=== PATIENT | male | born 1950 | race Caucasian/White ===

== ENCOUNTER → 2022-03-14 14:17 | Outpatient (BNVA) | payer OTHER, SELFPAY | PROVIDERS: PCP General Practice; Referring Provider General Practice; Visit Provider Nurse Practitioner Family | DX: Z13.89 Encounter for screening for other disorder (principal) ==

== ENCOUNTER 2023-08-07 09:37 | Outpatient (REF) | payer MEDICARE, SELFPAY ==
--- NOTE | ~2023-08-07 | CT_ITS ---
EXAMINATION: CT CHEST WITHOUT CONTRAST CLINICAL INFORMATION: Chest pain on exertion. COMPARISON: None available. TECHNIQUE: Multidetector volumetric CT imaging of the chest was done. Axial MIP volume rendering provided. Sagittal and coronal reformatted images were obtained. This CT examination was performed using dose optimization techniques as appropriate, variously including the following: *Automated exposure control *Adjustment of mA and/or kV according to patient size (this includes techniques or standardized protocols for targeted exams where dose is matched to indication/reason for exam; i.e. extremities or head) *Use of iterative reconstruction technique DLP: 579 mGy-cm FINDINGS: LUNGS: Mild subpleural reticular changes at the lung bases. Mild central bronchial wall thickening. No focal consolidation. No suspicious pulmonary nodule. Central airways are patent. MEDIASTINUM: No bulky axillary, hilar or mediastinal lymphadenopathy. Great vessels are normal. Heart is enlarged. No pericardial effusion. CORONARY ARTERY CALCIFICATION: Severe. PLEURA: There is no pleural effusion. No pleural mass or thickening. CHEST WALL: Gynecomastia. UPPER ABDOMEN: Bilateral adrenal adenomas. Cholelithiasis. OSSEOUS STRUCTURES: Prior median sternotomy. CT/CT chest wo IV con IMPRESSION: Possible early interstitial lung disease. Bilateral adrenal adenomas. Cholelithiasis.
== END 2023-08-07 09:38 | disposition home or self-care (01) ==
LOC: HO.CT 09:37
PROVIDERS: PCP General Practice; Visit Provider General Practice
DX: R07.9 Chest pain, unspecified (principal); R06.09 Other forms of dyspnea
CPT/HCPCS: 71250

== ENCOUNTER 2023-08-21 14:17 | Outpatient (AMB) | payer MEDICARE, SELFPAY ==
--- NOTE | 2023-08-21 14:45 | MHC.OFFVIS ---
Intake Vital Signs 08/21/23 14:47 Height 6 ft 3 in Weight 318 lb BMI 39.7 BP 130/78 Blood Pressure Location Lt brachial Position Sitting Pulse 62 Pulse Source Pulse Oximeter Pulse Oximetry (%) 96 Oxygen Delivery Method Room Air Intake Visit Reasons: HACKETT Intake Note: pt is here as a new patient for shortness of breath with stairs, he must stop mid way, if he exerts his lungs they burn. pt had Covid December 2022, in hospital for 4 days in [place]. Machine Quilt Stuffer Required: No Allergies No Known Allergies Allergy (Verified 08/21/23 15:37) Medication List - Last Reconciled 08/21/23 by Maria Elena Del Rio MD albuterol sulfate 90 mcg/actuation 2 puffs PO Q4-6H PRN aspirin 81 mg PO DAILY atorvastatin 80 mg PO DAILY carvedilol 12.5 mg PO BID chlorthalidone 25 mg PO DAILY cholecalciferol (vitamin D3) (Vitamin D3) 50 mcg PO DAILY clopidogrel 75 mg PO DAILY coQ10 (ubiquinol) 100 mg PO BID cyanocobalamin (vitamin B-12) (Vitamin B-12) 500 mcg PO DAILY furosemide 40 mg PO DAILY gabapentin 400 mg PO TID lisinopril 20 mg PO DAILY loratadine (Claritin) 10 mg PO DAILY metformin 500 mg PO BID montelukast 10 mg PO QPM multivitamin 1 tab PO DAILY nitroglycerin 0.4 mg sublingual DIRECTED PRN pyridoxine (vitamin B6) (Vitamin B-6) 100 mg PO DAILY zinc acetate 50 mg PO DAILY Do you need a note to return to daycare/school/sports/work: No HPI HACKETT HPI Details 72 years old very pleasant gentleman, a retired flatbed driver, is referred for pulmonary evaluation, with his chief complaint of dyspnea on exertion. This year in December when he was in [place], he suffered from COVID-19 infection. He was treated in the hospital for 4 days, and then discharged. He did not have to use oxygen, Since discharge he has gradually improved, but with residual dyspnea on exertion. He also feels that his memory is somewhat impaired, but he is able to function fine. He gets short of breath on walking about 100 ft and has to stop and slow down. Also when he climbs 1 flight of stairs in the middle of the stairs he starts feeling short of breath. Just by resting the shortness of breath resolves, he does not have any cough or wheezing. He does use albuterol inhaler sometime when he is short of breath but it does not make a big difference. In general he feels somewhat D conditioned. In the past 2, in childhood he did have mild bronchial asthma but then outgrew the symptoms. When he was in college he did smoke a few cigarettes daily for a few years but quit successfully. He had cardiac bypass in 2007 and since then remains on carvedilol, lisinopril,. chlorthalidone, clopidogrel and furosemide . He is not aware of the diagnosis of congestive heart failure, in does not know if he had an echocardiogram recently. He has been using montelukast 10 mg daily in the evening and does not know what is that for . [facility] Medical History (Updated 08/21/23 @ 17:02 by Maria Elena Del Roi MD) Interstitial lung disease Shortness of breath on exertion Post covid-19 condition, unspecified Depression Hx of spinal stenosis Personal history of COVID-19 Skin cancer Arthritis Type 2 diabetes mellitus Pulmonary embolism Seasonal allergies Sleep apnea CAD (coronary artery disease) Surgical History Hx of cardiac catheterization Hx of heart artery stent H/O colonoscopy Hx of heart bypass surgery History of back surgery Hx of tonsillectomy Social History Household Members: Family and Children Are you a primary childcare center administrator to a significant other at home: No Do you presently have visiting nurse or other home services: No Alcohol intake: former Patient Tobacco Use Status: Former Tobacco user Quit Date: Tobacco use type: Cigarette Substance Use Type: Marijuana Review of Systems Const All systems reviewed & are unremarkable except as noted in HPI and below Eyes Reports no additional complaints ENT Reports nasal congestion (MILD INTERMITTENT) Card Reports leg edema and Reports dyspnea on exertion Resp Reports as per HPI and Reports dyspnea on exertion GI Reports no additional complaints Reports no additional complaints Musc Reports other (nonspecific muscular weakness) Skin/Breast Reports system reviewed and no additional complaints, except as documented Neuro Reports memory loss (Mild) Psych Denies anxiety, Denies depression and Reports memory loss (Mild) Endo Reports no additional complaints Jose Daniel/Lymph Reports no additional complaints Physical Exam Vital Signs: Last Vital Signs Pulse 62 08/21/23 14:47 BP 130/78 08/21/23 14:47 Pulse Ox 96 08/21/23 14:47 Oxygen Delivery Method Room Air 08/21/23 14:47 BMI result Body Mass Index 39.7 Const General: comfortable, no acute distress, alert and awake Orientation/consciousness: patient oriented x3 HEENT Head: Yes normal to inspection General nose exam: No nasal polyps present and No nasal discharge present Face and sinus: Yes sinuses nontender Mouth: oropharynx normal Throat: Yes posterior oropharynx normal Eyes General: appearance normal, both eyes and all related structures Neck Neck: Yes normal visual inspection, Yes no lymphadenopathy, Yes trachea midline and Yes no JVD Thyroid: Thyroid normal Chest Chest palpation & inspection: abnormal inspection of the chest (Midline scar from previous CABG surgery), normal palpation of entire chest wall and no tenderness Resp Other: Percussion note is resonant, breath sounds are equal on both sides. No crepitations or wheezes are heard. Cardio Palpation: normal PMI Rate: regular rate Rhythm: regular rhythm Heart sounds: no gallops and no murmurs GI Palpation (GI): Soft to palpation, nontender, No hepatosplenomegaly present and no masses Auscultation: normal bowel sounds Back/Spine/Pelvis Thoracic/Lumbar Spine: thoracic and lumbar spine normal to inspection and thoraco-lumbar ROM limited Skin General skin exam: no rashes or lesions noted Neuro General: patient oriented x3 and no focal motor deficits Cranial nerves: Yes CN's II-XII intact bilaterally Extrem General: Yes normal to inspection, Yes no calf tenderness and Yes venous stasis dermatitis (Mild chronic stasis dermatitis of both legs) Psych Appearance: grossly normal and well kempt Speech and movement: Normal speech and movement present Results Reviewed Results Reviewed: CT scan of the chest 08/07/2023 MILD SUB PLEURAL RETICULAR CHANGES AT THE LUNG BASES SUGGESTING POSSIBLE MINIMAL INTERSTITIAL LUNG DISEASE, AND MILD CENTRAL BRONCHIAL WALL THICKENING. NO OTHER SIGNIFICANT ABNORMALITIES.. * I MADE HIM WALK IN THE HALLWAY FOR ABOUT 4 MINUTES AT A REGULAR PACE, HE DID COMPLAIN OF GETTING SHORT OF BREATH ABOUT HALF OF THE WAY, BUT WAS ABLE TO CONTINUE WALKING. O2 SAT AT REST 96%, AFTER THE WALK 93% Assessment & Plan Assessment & Plan (1) Post covid-19 condition, unspecified: Comment: PATIENT GIVES HISTORY OF BEING TREATED FOR COVID-19 IN DECEMBER 2022. HE DID NOT HAVE PNEUMONIA. POST DISCHARGE, HE FELT D CONDITION AND COMPLAINED OF DYSPNEA ON EXERTION . IT HAS SLOWLY AND GRADUALLY IMPROVED, BUT STILL FEELS SOMEWHAT D CONDITIONED. HE ALSO DESCRIBES MINIMAL DEGREE OF MEMORY IMPAIRMENT, ESPECIALLY NOTICED BY THE FAMILY MEMBERS, BUT HE SEEMS TO BE FUNCTIONING WELL. HE DID PUT ON ABOUT 20 LB OF WEIGHT AFTER HE SUFFERED FROM ACUTE COVID-19 INFECTION. IT SEEMS THAT HE CONTINUES TO BE DECONDITIONED , AND HAS A LONG HAUL POST COVID SYNDROME, Code(s): U09.9 - Post COVID-19 condition, unspecified (2) Shortness of breath on exertion: Comment: DYSPNEA ON EXERTION, MAY BE DUE TO DECONDITIONING. AND MAY BE DUE TO VERY MILD INTERSTITIAL LUNG DISEASE. HE IS STARTED ON INCENTIVE SPIROMETRY, FOR DEEP BREATHING EXERCISES. ALSO ADVISED TO DO GENTLE EXERCISES FOR THE BODY . PULMONARY FUNCTION TEST IS TO BE OBTAINED TO CHECK FOR ANY OBSTRUCTIVE OR INTERSTITIAL LUNG DISEASE. Code(s): R06.02 - Shortness of breath (3) Interstitial lung disease: Comment: HE MAY HAVE VERY MILD EARLY INTERSTITIAL LUNG DISEASE A RESIDUAL FROM THE COVID 19 INFECTION. THIS WILL BE CHECKED WITH PULMONARY FUNCTION TEST. Code(s): J84.9 - Interstitial pulmonary disease, unspecified Orders: Orders PFT pulmonary function test Today J84.9 - Interstitial pulmonary disease, unspecified, R06.02 - Shortness of breath, U09.9 - Post COVID-19 condition, unspecified Coding Level of Care Code New Pt Level 4 (54128) Diagnoses Post covid-19 condition, unspecified U09.9 Shortness of breath on exertion R06.02 Interstitial lung disease J84.9
[2023-08-21 14:47] VITALS: BP 130/78; PULSE 62; O2SAT 96; BMI 39.7
== END 2023-08-21 15:37 | disposition home or self-care (01) ==
PROVIDERS: PCP General Practice; Referring Provider General Practice; Visit Provider Internal Medicine
DX: U09.9 Post COVID-19 condition, unspecified (principal); R06.02 Shortness of breath; J84.9 Interstitial pulmonary disease, unspecified
CPT/HCPCS: 99204

== ENCOUNTER → 2023-08-21 14:17 | Outpatient (BNVA) | payer MEDICARE, SELFPAY | PROVIDERS: PCP General Practice; Visit Provider Internal Medicine ==

== ENCOUNTER 2023-09-03 10:10 | Outpatient (REF) | payer MEDICARE, SELFPAY ==
[2023-09-03 11:42] LABS: Syphilis Screen Nonreactive (Nonreactive)
[2023-09-03 11:46] LABS: Vitamin B12 618 pg/mL (200-900)
[2023-09-04 21:14] LABS: Lyme Abs Screen <0.90 index
== END 2023-09-03 10:11 | disposition home or self-care (01) ==
LOC: HO.LAB 10:10
PROVIDERS: PCP General Practice; Visit Provider Psychiatry & Neurology Neurology
DX: G93.40 Encephalopathy, unspecified (principal)
CPT/HCPCS: 36415; 82607; 86617; 86618; 86780

== ENCOUNTER 2023-09-26 13:46 | Outpatient (AMB) | payer MEDICARE, SELFPAY ==
--- NOTE | 2023-09-26 14:02 | A.OFFVIS_ITS ---
Intake Vital Signs 09/26/23 14:04 Height 6 ft 3 in Weight 318 lb BMI 39.7 BP 130/78 Blood Pressure Location Lt brachial Position Sitting Pulse 68 Pulse Source Pulse Oximeter Pulse Oximetry (%) 95 Oxygen Delivery Method Room Air Intake Visit Reasons: HACKETT Intake Note: pt is here for f/u of ct scan and has pft scheduled for pft on Sunday. Still has shortness of breath with exertion,some coughing and wheezing mostly in am when waking up. Maintenance Shop Manager Required: No Allergies No Known Allergies Allergy (Verified 09/26/23 14:32) Medication List - Last Reconciled 09/26/23 by Maria Elena Del Rio MD albuterol sulfate 90 mcg/actuation 2 puffs PO Q4-6H PRN aspirin 81 mg PO DAILY atorvastatin 80 mg PO DAILY carvedilol 12.5 mg PO BID chlorthalidone 25 mg PO DAILY cholecalciferol (vitamin D3) (Vitamin D3) 50 mcg PO DAILY clopidogrel 75 mg PO DAILY coQ10 (ubiquinol) 100 mg PO BID cyanocobalamin (vitamin B-12) (Vitamin B-12) 500 mcg PO DAILY furosemide 40 mg PO DAILY gabapentin 400 mg PO TID lisinopril 20 mg PO DAILY loratadine (Claritin) 10 mg PO DAILY metformin 500 mg PO BID montelukast 10 mg PO QPM multivitamin 1 tab PO DAILY nitroglycerin 0.4 mg sublingual DIRECTED PRN pyridoxine (vitamin B6) (Vitamin B-6) 100 mg PO DAILY zinc acetate 50 mg PO DAILY Do you need a note to return to daycare/school/sports/work: No HPI HACKETT HPI Details THIS 72 YEARS OLD GENTLEMAN GROSSLY OBESE, DOES HAVE OBSTRUCTIVE SLEEP APNEA WHICH IS BEING TREATED WITH CPAP AND HE USES IT VERY REGULARLY EVERY NIGHT. HE HAS MILD SHORTNESS OF BREATH ON WALKING AROUND WITH MILD INTERMITTENT COUGH. THERE WAS A QUESTION OF MILD INTERSTITIAL LUNG DISEASE. CT SCAN OF THE CHEST HAS BEEN DONE WHICH DOES SHOW EARLY/ MINIMAL ILD PULMONARY FUNCTION TEST IS STILL AWAITED. HE DOES NOT NEED TO USE ANY . LONG-ACTING BRONCHODILATORS USES ALBUTEROL 2 PUFFS ONLY ONCE IN A WHILE IF HE FEELS CONGESTED. [facility] Medical History (Updated 09/26/23 @ 16:40 by Maria Elena Del Rio MD) DIVYA (obstructive sleep apnea) Obesity (BMI 30-39.9) Interstitial lung disease Shortness of breath on exertion Post covid-19 condition, unspecified Depression Hx of spinal stenosis Personal history of COVID-19 Skin cancer Arthritis Type 2 diabetes mellitus Pulmonary embolism Seasonal allergies Sleep apnea CAD (coronary artery disease) Surgical History Hx of cardiac catheterization Hx of heart artery stent H/O colonoscopy Hx of heart bypass surgery History of back surgery Hx of tonsillectomy Social History Household Members: Family and Children Are you a primary transitional care liaison to a significant other at home: No Do you presently have visiting nurse or other home services: No Alcohol intake: former Patient Tobacco Use Status: Former Tobacco user Quit Date: Tobacco use type: Cigarette Substance Use Type: Marijuana Review of Systems Const All systems reviewed & are unremarkable except as noted in HPI and below Eyes Reports no additional complaints ENT Reports nasal congestion (MILD INTERMITTENT) Card Reports leg edema and Reports dyspnea on exertion Resp Reports as per HPI and Reports dyspnea on exertion GI Reports no additional complaints Reports no additional complaints Musc Reports other (nonspecific muscular weakness) Skin/Breast Reports system reviewed and no additional complaints, except as documented Neuro Reports memory loss (Mild) Psych Denies anxiety, Denies depression and Reports memory loss (Mild) Endo Reports no additional complaints Jose Daniel/Lymph Reports no additional complaints Physical Exam Vital Signs: Last Vital Signs Pulse 68 09/26/23 14:04 BP 130/78 09/26/23 14:04 Pulse Ox 95 09/26/23 14:04 Oxygen Delivery Method Room Air 09/26/23 14:04 BMI result Body Mass Index 39.7 Const General: comfortable, no acute distress, alert and awake Orientation/consciousness: patient oriented x3 HEENT Head: Yes normal to inspection General nose exam: No nasal polyps present and No nasal discharge present Face and sinus: Yes sinuses nontender Mouth: oropharynx normal Throat: Yes posterior oropharynx normal Eyes General: appearance normal, both eyes and all related structures Neck Neck: Yes normal visual inspection, Yes no lymphadenopathy, Yes trachea midline and Yes no JVD Thyroid: Thyroid normal Chest Chest palpation & inspection: abnormal inspection of the chest (Midline scar from previous CABG surgery), normal palpation of entire chest wall and no tenderness Resp Other: Percussion note is resonant, breath sounds are equal on both sides. No crepitations or wheezes are heard. Cardio Palpation: normal PMI Rate: regular rate Rhythm: regular rhythm Heart sounds: no gallops and no murmurs GI Palpation (GI): Soft to palpation, nontender, No hepatosplenomegaly present and no masses Auscultation: normal bowel sounds Back/Spine/Pelvis Thoracic/Lumbar Spine: thoracic and lumbar spine normal to inspection and thoraco-lumbar ROM limited Skin General skin exam: no rashes or lesions noted Neuro General: patient oriented x3 and no focal motor deficits Cranial nerves: Yes CN's II-XII intact bilaterally Extrem General: Yes normal to inspection, Yes no calf tenderness and Yes venous stasis dermatitis (Mild chronic stasis dermatitis of both legs) Psych Appearance: grossly normal and well kempt Speech and movement: Normal speech and movement present Results Reviewed Results Reviewed: CT SCAN OF THE CHEST ON 08/07/2023: POSSIBLE EARLY INTERSTITIAL LUNG DISEASE, OTHERWISE LUNGS ARE CLEAR Assessment & Plan Assessment & Plan (1) Shortness of breath on exertion: Comment: DYSPNEA ON EXERTION, MAY BE DUE TO DECONDITIONING. HE HAS VERY MILD / EARLY INTERSTITIAL LUNG DISEASE. HE IS IS INSTRUCTED TO KEEP ON DOING DEEP BREATHING EXERCISES WITH INCENTIVE SPIROMETRY. ALSO ADVISED TO DO GENTLE EXERCISES FOR THE BODY . PULMONARY FUNCTION TEST IS IS SCHEDULED FOR NEXT WEEK . Code(s): R06.02 - Shortness of breath (2) Interstitial lung disease: Comment: PER CT SCAN HE HAS VERY MILD/EARLY INTERSTITIAL LUNG DISEASE IN THE BASILAR AREAS . DOES NOT NEED ANY ACTIVE TREATMENT FOR THIS. Code(s): J84.9 - Interstitial pulmonary disease, unspecified (3) Obesity (BMI 30-39.9): Comment: HE IS MODERATELY OBESE, TRYING TO DECREASE HIS CALORIES INTAKE. NOT ABLE TO DO MUCH EXERCISE. Code(s): E66.9 - Obesity, unspecified (4) DIVYA (obstructive sleep apnea): Comment: PATIENT HAS LONG-STANDING HISTORY OF OBSTRUCTIVE SLEEP APNEA AND USES CPAP REGULARLY. INFECT WITHOUT THE CPAP HE CANNOT SLEEP GOOD ANYWAY. Code(s): G47.33 - Obstructive sleep apnea (adult) (pediatric) Coding Level of Care Code Est Pt Level 3 (14228) Diagnoses Shortness of breath on exertion R06.02 Interstitial lung disease J84.9 Obesity (BMI 30-39.9) E66.9 DIVYA (obstructive sleep apnea) G47.33
[2023-09-26 14:04] VITALS: BP 130/78; PULSE 68; O2SAT 95; BMI 39.7
== END 2023-09-26 14:32 | disposition home or self-care (01) ==
PROVIDERS: PCP General Practice; Visit Provider Internal Medicine
DX: R06.02 Shortness of breath (principal); J84.9 Interstitial pulmonary disease, unspecified; E66.9 Obesity, unspecified; G47.33 Obstructive sleep apnea (adult) (pediatric)
CPT/HCPCS: 99213

== ENCOUNTER → 2023-09-26 13:46 | Outpatient (BNVA) | payer MEDICARE, SELFPAY | PROVIDERS: PCP General Practice; Visit Provider Internal Medicine | DX: R06.02 Shortness of breath (principal); J84.9 Interstitial pulmonary disease, unspecified; G47.33 Obstructive sleep apnea (adult) (pediatric); E66.9 Obesity, unspecified; Z68.39 Body mass index [BMI] 39.0-39.9, adult | CPT/HCPCS: 99212 ==

== ENCOUNTER 2023-09-28 14:39 | Outpatient (REF) | payer MEDICARE, SELFPAY ==
--- NOTE | 2023-09-28 15:21 | PFT_ITS ---
Forced vital capacity 76%, FEV1 56%, FEV1 over FVC ratio is 54. FEF 25-75 of 28% and MVV 60%. Post bronchodilator therapy, no significant changes noted. Total lung capacity 73%, and residual volume 77%. Diffusion capacity 71%. CONCLUSION: 1. Mild restrictive pulmonary disorder. 2. Moderately severe obstructive airway disorder without any response to bronchodilator therapy. 3. Clinical correlation is recommended. MD REBA Bai/YOVANNY / [phone]
== END 2023-09-28 14:40 | disposition home or self-care (01) ==
LOC: HO.RESP 14:39
PROVIDERS: PCP General Practice; Visit Provider Internal Medicine
DX: U09.9 Post COVID-19 condition, unspecified (principal); R06.02 Shortness of breath; J84.9 Interstitial pulmonary disease, unspecified
CPT/HCPCS: 94010; 94727; 94729

== ENCOUNTER → 2023-09-28 15:21 | Outpatient (BNV) | payer MEDICARE, SELFPAY | PROVIDERS: PCP General Practice; Visit Provider Internal Medicine | DX: J84.9 Interstitial pulmonary disease, unspecified (principal); U09.9 Post COVID-19 condition, unspecified | CPT/HCPCS: 94060; 94727; 94729 ==

== ENCOUNTER 2023-10-26 15:16 | Outpatient (REF) | payer MEDICARE, SELFPAY ==
[2023-10-26 16:25] LABS: MANUAL DIFF FLAG NO
[2023-10-26 16:30] LABS: Basophils Absolute Auto 0.1 X10*3/uL (0.0-0.2); Basophils Percent Auto 0.8 % (0-2); Eosinophils Absolute Auto 0.3 X10*3/uL (0.0-0.4); Eosinophils Percent Auto 4.2 % (0-4); Hematocrit 46.3 % (42.0-52.0); Imm Gran Abs Auto 0.02 X10*3/uL (0.00-0.03); Imm Gran Pct Auto 0.3 % (0.0-0.4); Lymphocytes Absolute Auto 2.4 X10*3/uL (1.2-4.9); Lymphocytes Percent Auto 36.2 % (20-40); Mean Corpuscular HGB Conc 32.4 g/dl (31.0-36.0); Mean Corpuscular Hemoglobin 31.1 pg (27.0-33.0); Mean Corpuscular Volume 95.9 fL (80.0-98.0); Mean Platelet Volume 10.5 fL (9.4-12.4); Monocytes Absolute Auto 0.7 X10*3/uL (0.1-1.2); Monocytes Percent Auto 11.2 % (2-11); Neutrophils Absolute Auto 3.1 x10*3/uL (2.0-8.3); Neutrophils Percent Auto 47.3 % (45-73); Platelet Count 164 X10*3/uL (160-400); Red Blood Count 4.83 X10*6/uL (4.60-5.80); Red Cell Distribution Width 13.1 % (11.0-16.0); White Blood Count 6.6 X10*3/uL (4.8-10.8)
[2023-10-26 17:17] LABS: Erythrocyte Sedimentation Rate 9 MM/HR (0-15)
[2023-10-26 18:28] LABS: C Reactive Protein 0.39 mg/dL (< or = 0.50)
== END 2023-10-26 15:17 | disposition home or self-care (01) ==
LOC: HO.HHCL 15:16
PROVIDERS: Visit Provider General Practice
DX: R22.0 Localized swelling, mass and lump, head (principal)
CPT/HCPCS: 36415; 85025; 85652; 86140

== ENCOUNTER 2024-01-01 09:51 | Day surgery (SDC) | payer MEDICARE, SELFPAY ==
--- NOTE | ~2024-01-01 | FL_ITS ---
EXAMINATION: XR LUMBAR PUNCTURE CLINICAL INFORMATION: RF FL GUIDED LUMBAR PUNCTURE Alzheimer's disease. Encephalopathy. COMPARISON: None available. TECHNIQUE: 1 image fluoroscopic guided lumbar puncture FINDINGS: Metallic density projects over the L3 vertebral body in the midline. FLUOROSCOPY TIME: 28 seconds DOSE AREA PRODUCT: 58.8 uGy-m2 (microgray-meter squared) FL/FL guided lumbar puncture LP IMPRESSION: Fluoroscopic guidance was provided for a lumbar puncture.
[2024-01-01 10:29] VITALS: BMI 39.5
[2024-01-01 10:58] LABS: INTERNATIONAL NORM RATIO 1.1 (0.9-1.1)
[2024-01-01 11:00] LABS: Partial Thromboplastin Time 30.5 SEC (26.0-36.8)
--- NOTE | 2024-01-01 12:07 | PM.EVENT ---
Event Note Date of Service: 01/01/24 Event Note: Procedure Note: Lumbar puncture L2-3 laminectomy sit- 10.5 cc clear csf removed. opening pressure 19 cm h20 No immediate complications Jeffery SORIANO Interventional Radiology Time Spent With Patient Time: Total time managing care of this patient today ____ minutes.
[2024-01-01 12:10] VITALS: BP 129/64; PULSE 56; RESP 15; TEMP 36.2; O2SAT 99
[2024-01-01 12:25] VITALS: BP 138/68; PULSE 49; RESP 14; O2SAT 100
[2024-01-01 12:40] VITALS: BP 129/64; PULSE 50; RESP 17; O2SAT 99
[2024-01-01 13:03] LABS: CSF Appearance Clear, Colorless; CSF Tube # 2
[2024-01-01 13:10] VITALS: BP 126/61; PULSE 50; RESP 20; TEMP 36.6; O2SAT 97
[2024-01-01 13:12] LABS: Glucose CSF 50 mg/dL
[2024-01-01 13:56] LABS: Appearance CSF CLEAR; CSF Tube # 4; Color CSF COLORLESS; Red Blood Cell CSF 4 MM*3; White Blood Cell CSF 2 MM*3
[2024-01-01 13:57] LABS: CSF Monos 15 %; Lymphocytes CSF 85 %
[2024-01-01 13:58] LABS: Appearance CSF HAZY; CSF Tube # 1; CSF Volume 2.5 ML; Color CSF STRAW; Red Blood Cell CSF 353 MM*3
[2024-01-01 14:00] LABS: CSF Monos 26 %; Lymphocytes CSF 68 %; Neutrophils CSF 6 %; White Blood Cell CSF 13 MM*3
[2024-01-01 15:31] LABS: Oligoclonal Serum Yes
[2024-01-01 15:59] LABS: Cryptococcus neoformans/gattii Not Detected (Not Detect.); Enterovirus Not Detected (Not Detect.); Escherichia coli K1 Not Detected (Not Detect.); Haemophilus influenzae Not Detected (Not Detect.); Herpes simplex virus 1 Not Detected (Not Detect.); Herpes simplex virus 2 Not Detected (Not Detect.); Human herpesvirus 6 Not Detected (Not Detect.); Human parechovirus Not Detected (Not Detect.); Listeria monocytogenes Not Detected (Not Detect.); Neisseria meningitidis Not Detected (Not Detect.); Streptococcus agalactiae Not Detected (Not Detect.); Streptococcus pneumoniae Not Detected (Not Detect.); Varicella zoster virus Not Detected (Not Detect.)
[2024-01-04 21:47] LABS: Albumin 4.3 g/dL (3.6-5.1); Albumin, CSF 64.3 mg/dL (8.0-42.0); IgG 882 mg/dL (600-1540); IgG Synthesis Rate 4.9 mg/24 h (-9.9-3.3); IgG, CSF 7.4 mg/dL (0.8-7.7)
[2024-01-07 14:09] LABS: Oligoclonal Banding Absent (Absent)
== END 2024-01-01 13:25 | disposition home or self-care (01) ==
PROVIDERS: Physician Assistant Surgical; Student in an Organized Health Care Education/Training Program; PCP General Practice; Visit Provider Psychiatry & Neurology Neurology
PROC: 009U3ZZ Drainage of Spinal Canal, Percutaneous Approach (ICD-10-PCS; CPT 62270; principal; 2024-01-01 11:00)
DX: G93.40 Encephalopathy, unspecified (principal); G30.9 Alzheimer's disease, unspecified; I67.89 Other cerebrovascular disease; I10 Essential (primary) hypertension; E78.00 Pure hypercholesterolemia, unspecified; E11.9 Type 2 diabetes mellitus without complications; G47.33 Obstructive sleep apnea (adult) (pediatric); U09.9 Post COVID-19 condition, unspecified; F12.90 Cannabis use, unspecified, uncomplicated; F10.91 Alcohol use, unspecified, in remission; Z79.82 Long term (current) use of aspirin; Z79.84 Long term (current) use of oral hypoglycemic drugs; Z99.89 Dependence on other enabling machines and devices
CPT/HCPCS: 36415; 62328; 82042; 82945; 83520; 83916; 84157; 85610; 85730; 87015; 87070; 87205; 87483; 89051

== ENCOUNTER 2024-01-22 14:26 | Outpatient (AMB) | payer MEDICARE, SELFPAY ==
--- NOTE | 2024-01-22 14:32 | A.OFFVIS_ITS ---
Intake Vital Signs 01/22/24 14:35 Height 6 ft 3 in Weight 314 lb 2.539 oz BMI 39.3 BP 112/70 Blood Pressure Location Lt brachial Position Sitting Pulse 69 Pulse Source Pulse Oximeter Pulse Oximetry (%) 96 Oxygen Delivery Method Room Air Intake Visit Reasons: HACKETT Allergies No Known Allergies Allergy (Verified 01/22/24 14:40) Medication List - Last Reconciled 01/22/24 by Maria Elena Del Rio MD albuterol sulfate 90 mcg/actuation 2 puffs PO Q4-6H PRN aspirin 81 mg PO DAILY atorvastatin 80 mg PO DAILY carvedilol 12.5 mg PO BID chlorthalidone 25 mg PO DAILY cholecalciferol (vitamin D3) (Vitamin D3) 50 mcg PO DAILY clopidogrel 75 mg PO DAILY coQ10 (ubiquinol) 100 mg PO BID cyanocobalamin (vitamin B-12) (Vitamin B-12) 500 mcg PO DAILY furosemide 40 mg PO DAILY gabapentin 400 mg PO TID lisinopril 20 mg PO DAILY loratadine (Claritin) 10 mg PO DAILY metformin 500 mg PO BID montelukast 10 mg PO QPM multivitamin 1 tab PO DAILY nitroglycerin 0.4 mg sublingual DIRECTED PRN pyridoxine (vitamin B6) (Vitamin B-6) 100 mg PO DAILY zinc acetate 50 mg PO DAILY Do you need a note to return to daycare/school/sports/work: No HPI HACKETT HPI Details This 73 years old very pleasant gentleman gentleman is here for follow- up. For his COPD, allergic rhinitis, and obstructive sleep apnea. Overall he is doing well except for the fact that he gets short of breath when he walks up hill or climbs stairs. He has occasional nasal congestion and uses loratadine on a p.r.n. basis. Denies much cough or wheezing, so he does not have to use albuterol too frequently. He remains overweight. He has obstructive sleep apnea mainly because of gross obesity and Retroganrhia of the lower jaw. Uses CPAP every night and sleeps well. [facility] Medical History (Updated 01/22/24 @ 14:58 by Maria Elena Del Rio MD) COPD (chronic obstructive pulmonary disease) DIVYA (obstructive sleep apnea) Obesity (BMI 30-39.9) Interstitial lung disease Shortness of breath on exertion Post covid-19 condition, unspecified Depression Hx of spinal stenosis Personal history of COVID-19 Skin cancer Arthritis Type 2 diabetes mellitus Pulmonary embolism Seasonal allergies Sleep apnea CAD (coronary artery disease) Surgical History Hx of cardiac catheterization Hx of heart artery stent H/O colonoscopy Hx of heart bypass surgery History of back surgery Hx of tonsillectomy Social History Household Members: Family and Children Are you a primary home care provider to a significant other at home: No Do you presently have visiting nurse or other home services: No Alcohol intake: former Patient Tobacco Use Status: Former Tobacco user Quit Date: Tobacco use type: Cigarette Substance Use Type: Marijuana Review of Systems Const All systems reviewed & are unremarkable except as noted in HPI and below Eyes Reports no additional complaints ENT Reports nasal congestion (MILD INTERMITTENT) Card Reports leg edema and Reports dyspnea on exertion Resp Reports as per HPI and Reports dyspnea on exertion GI Reports no additional complaints Reports no additional complaints Musc Reports other (nonspecific muscular weakness) Skin/Breast Reports system reviewed and no additional complaints, except as documented Neuro Reports memory loss (Mild) Psych Denies anxiety, Denies depression and Reports memory loss (Mild) Endo Reports no additional complaints Jose Daniel/Lymph Reports no additional complaints Physical Exam Const General: comfortable, no acute distress, alert and awake Orientation/consciousness: patient oriented x3 HEENT Head: Yes normal to inspection General nose exam: No nasal polyps present and No nasal discharge present Face and sinus: Yes sinuses nontender Mouth: oropharynx normal Throat: Yes posterior oropharynx normal Eyes General: appearance normal, both eyes and all related structures Neck Neck: Yes normal visual inspection, Yes no lymphadenopathy, Yes trachea midline and Yes no JVD Thyroid: Thyroid normal Chest Chest palpation & inspection: abnormal inspection of the chest (Midline scar from previous CABG surgery), normal palpation of entire chest wall and no tenderness Resp Other: Percussion note is resonant, breath sounds are equal on both sides. No crepitations or wheezes are heard. Cardio Palpation: normal PMI Rate: regular rate Rhythm: regular rhythm Heart sounds: no gallops and no murmurs GI Palpation (GI): Soft to palpation, nontender, No hepatosplenomegaly present and no masses Auscultation: normal bowel sounds Back/Spine/Pelvis Thoracic/Lumbar Spine: thoracic and lumbar spine normal to inspection and thoraco-lumbar ROM limited Skin General skin exam: no rashes or lesions noted Neuro General: patient oriented x3 and no focal motor deficits Cranial nerves: Yes CN's II-XII intact bilaterally Extrem General: Yes normal to inspection, Yes no calf tenderness and Yes venous stasis dermatitis (Mild chronic stasis dermatitis of both legs) Psych Appearance: grossly normal and well kempt Speech and movement: Normal speech and movement present Results Reviewed Results Reviewed: Pulmonary function test report is reviewed with him. He has mild to moderate degree of obstructive airway disorder, and moderate degree of restrictive lung disorder ( secondary to obesity) There was no response to bronchodilator therapy. Assessment & Plan Assessment & Plan (1) Obesity (BMI 30-39.9): Comment: HE IS MODERATELY OBESE, TRYING TO DECREASE HIS CALORIES INTAKE. NOT ABLE TO DO MUCH EXERCISE. Code(s): E66.9 - Obesity, unspecified Plan: Encouraged to do walking of 2-3 miles every day. Cut down the intake of calories by using more veggies, fruits and salads. (2) DIVYA (obstructive sleep apnea): Comment: PATIENT HAS LONG-STANDING HISTORY OF OBSTRUCTIVE SLEEP APNEA AND USES CPAP REGULARLY. IN FECT WITHOUT THE CPAP HE CANNOT SLEEP GOOD ANYWAY. Code(s): G47.33 - Obstructive sleep apnea (adult) (pediatric) Plan: Encouraged to keep on using the CPAP (3) Interstitial lung disease: Comment: PER CT SCAN HE HAS VERY MILD/EARLY INTERSTITIAL LUNG DISEASE IN THE BASILAR AREAS . DOES NOT NEED ANY ACTIVE TREATMENT FOR THIS. Code(s): J84.9 - Interstitial pulmonary disease, unspecified Plan: Explained to the patient (4) Shortness of breath on exertion: Comment: DYSPNEA ON EXERTION, IS DUE TO COMBINATION OF OBESITY, RESTRICTIVE LUNG DISORDER, AND OBSTRUCTIVE AIRWAY DISORDER. RESULTS OF THE PULMONARY FUNCTION. TEST EXPLAINED TO THE PATIENT Code(s): R06.02 - Shortness of breath Plan: DEEP BREATHING EXERCISES EXPLAINED. USE ALBUTEROL HFA 2 PUFFS Q 4-6 HOURS BUT ONLY P.R.N. FOR WHEEZING . SHORTNESS OF BREATH ON EXERTION SHOULD IMPROVE BY LOSING WEIGHT AND ALSO BY DOING DEEP BREATHING EXERCISES (5) COPD (chronic obstructive pulmonary disease): Comment: PULMONARY FUNCTION TEST DOES INDICATE MILD TO MODERATE DEGREE OF OBSTRUCTIVE AIRWAY DISORDER HOWEVER THERE IS NO RESPONSE. TO BRONCHODILATOR THERAPY Code(s): J44.9 - Chronic obstructive pulmonary disease, unspecified Plan: JUST USE ALBUTEROL HFA 2 PUFFS Q 6 HOURS ONLY P.R.N. Coding Level of Care Code Est Pt Level 3 (16160) Diagnoses Obesity (BMI 30-39.9) E66.9 DIVYA (obstructive sleep apnea) G47.33 Interstitial lung disease J84.9 Shortness of breath on exertion R06.02 COPD (chronic obstructive pulmonary disease) J44.9
[2024-01-22 14:35] VITALS: BP 112/70; PULSE 69; O2SAT 96; BMI 39.3
--- NOTE | 2024-01-22 14:35 | MHC.OFFVIS ---
Intake Vital Signs 01/22/24 14:35 Height 6 ft 3 in Weight 314 lb 2.539 oz BMI 39.3 BP 112/70 Blood Pressure Location Lt brachial Position Sitting Pulse 69 Pulse Source Pulse Oximeter Pulse Oximetry (%) 96 Oxygen Delivery Method Room Air Intake Visit Reasons: HACKETT Intake Note: pt is here for follow up and states he is feeling still short of breath when walking and the buds on the trees will start contributing this. Land Leases And Rentals Manager Required: No Allergies No Known Allergies Allergy (Verified 01/22/24 14:40) Medication List - Last Reconciled 01/22/24 by Maria Elena Del Rio MD albuterol sulfate 90 mcg/actuation 2 puffs PO Q4-6H PRN aspirin 81 mg PO DAILY atorvastatin 80 mg PO DAILY carvedilol 12.5 mg PO BID chlorthalidone 25 mg PO DAILY cholecalciferol (vitamin D3) (Vitamin D3) 50 mcg PO DAILY clopidogrel 75 mg PO DAILY coQ10 (ubiquinol) 100 mg PO BID cyanocobalamin (vitamin B-12) (Vitamin B-12) 500 mcg PO DAILY furosemide 40 mg PO DAILY gabapentin 400 mg PO TID lisinopril 20 mg PO DAILY loratadine (Claritin) 10 mg PO DAILY metformin 500 mg PO BID montelukast 10 mg PO QPM multivitamin 1 tab PO DAILY nitroglycerin 0.4 mg sublingual DIRECTED PRN pyridoxine (vitamin B6) (Vitamin B-6) 100 mg PO DAILY zinc acetate 50 mg PO DAILY [facility] Medical History (Updated 09/26/23 @ 16:40 by Maria Elena Del Rio MD) DIVYA (obstructive sleep apnea) Obesity (BMI 30-39.9) Interstitial lung disease Shortness of breath on exertion Post covid-19 condition, unspecified Depression Hx of spinal stenosis Personal history of COVID-19 Skin cancer Arthritis Type 2 diabetes mellitus Pulmonary embolism Seasonal allergies Sleep apnea CAD (coronary artery disease) Surgical History Hx of cardiac catheterization Hx of heart artery stent H/O colonoscopy Hx of heart bypass surgery History of back surgery Hx of tonsillectomy Social History Household Members: Family and Children Are you a primary director of patient care to a significant other at home: No Do you presently have visiting nurse or other home services: No Alcohol intake: former Patient Tobacco Use Status: Former Tobacco user Quit Date: Tobacco use type: Cigarette Substance Use Type: Marijuana Coding
== END 2024-01-22 14:49 | disposition home or self-care (01) ==
PROVIDERS: PCP General Practice; Visit Provider Internal Medicine
DX: E66.9 Obesity, unspecified (principal); G47.33 Obstructive sleep apnea (adult) (pediatric); J84.9 Interstitial pulmonary disease, unspecified; R06.02 Shortness of breath; J44.9 Chronic obstructive pulmonary disease, unspecified
CPT/HCPCS: 99213

== ENCOUNTER → 2024-01-22 14:26 | Outpatient (BNVA) | payer MEDICARE, SELFPAY | PROVIDERS: PCP General Practice; Visit Provider Internal Medicine | DX: G47.33 Obstructive sleep apnea (adult) (pediatric) (principal); J44.9 Chronic obstructive pulmonary disease, unspecified; J84.9 Interstitial pulmonary disease, unspecified; R06.02 Shortness of breath; E66.9 Obesity, unspecified; Z68.39 Body mass index [BMI] 39.0-39.9, adult | CPT/HCPCS: 99212 ==

== ENCOUNTER 2024-01-28 15:05 | Outpatient (REF) | payer MEDICARE, SELFPAY ==
[2024-01-28 16:33] LABS: Alanine Aminotransferase 22 U/L (0-40); Albumin Level 4.2 g/dL (3.5-5.0); Alkaline Phosphatase 102 U/L (39-117); Anion Gap 12 (12-20); Aspartate Amino Transferase 25 U/L (5-37); Bilirubin Total 0.7 mg/dL (0.0-1.0); Blood Urea Nitrogen 14 mg/dL (9-16); Calcium 9.6 mg/dL (8.4-10.2); Carbon Dioxide 28 mmol/L (22-29); Chloride 106 mmol/L (96-108); Cholesterol 137 mg/dL (<200); Estimated Glomerular Filt Rate > 60; Glucose Random 78 mg/dL (60-115); HDL Cholesterol 38 mg/dL (>40); LDL Cholesterol Calculated 68 mg/dL (<100); Potassium 4.3 mmol/L (3.3-5.1); Sodium 142 mmol/L (135-145); Total Protein 7.1 g/dL (6.5-8.0); Triglycerides 157 mg/dL (<150)
[2024-01-28 16:52] LABS: Microalbum/Creatinine Ratio Ur 9.5 ug/mg cr (<30)
== END 2024-01-28 15:06 | disposition home or self-care (01) ==
LOC: HO.HHCL 15:05
PROVIDERS: Visit Provider General Practice
DX: E11.9 Type 2 diabetes mellitus without complications (principal)
CPT/HCPCS: 36415; 80053; 80061; 82043; 82570

== ENCOUNTER 2024-07-29 13:58 | Outpatient (AMB) | payer MEDICARE, SELFPAY ==
[2024-07-29 13:59] VITALS: BP 118/64; PULSE 63; O2SAT 96
--- NOTE | 2024-07-29 13:59 | MHC.OFFVIS ---
Vital Signs 07/29/24 13:59 Weight 317 lb 7.45 oz BP 118/64 Blood Pressure Location Rt brachial Position Sitting Pulse 63 Pulse Source Pulse Oximeter Pulse Oximetry (%) 96 Oxygen Delivery Method Room Air Intake Visit Reasons: HACKETT Intake Note: shortness of breath with exertion Allergies No Known Allergies Allergy (Verified 07/29/24 14:06) Medication List - Last Reconciled 07/29/24 by Maria Elena Del Rio MD albuterol sulfate 90 mcg/actuation 2 puffs PO Q4-6H PRN aspirin 81 mg PO DAILY atorvastatin 80 mg PO DAILY carvedilol 12.5 mg PO BID chlorthalidone 25 mg PO DAILY cholecalciferol (vitamin D3) (Vitamin D3) 50 mcg PO DAILY clopidogrel 75 mg PO DAILY coQ10 (ubiquinol) 100 mg PO BID cyanocobalamin (vitamin B-12) (Vitamin B-12) 500 mcg PO DAILY furosemide 40 mg PO DAILY gabapentin 400 mg PO TID lisinopril 20 mg PO DAILY loratadine (Claritin) 10 mg PO DAILY memantine ER (Namenda XR) PO PER PKG DIR metformin 500 mg PO BID montelukast 10 mg PO QPM multivitamin 1 tab PO DAILY nitroglycerin 0.4 mg sublingual DIRECTED PRN pyridoxine (vitamin B6) (Vitamin B-6) 100 mg PO DAILY zinc acetate 50 mg PO DAILY Do you need a note to return to daycare/school/sports/work: No HPI HPI HACKETT: Details: Mr. Munoz 73 years old gentleman who is grossly obese, comes for follow-up. Since his last visit he has become somewhat more forgetful and has been given the diagnosis of dementia. He is forgetful and usually his son has to come with him intake notes. But he is still pleasant and able to communicate. He gets short of breath when he climbs stairs but at a fast pace, if he goes slowly then he is okay. He denies any acute attacks of cough or wheezing. He does use albuterol inhaler but only once in a while, especially if he catches cold. He has mild nasal allergies with postnasal drip for which he uses Claritin off and on and he does continue to take montelukast 10 mg daily. For his sleep apnea he is a very regular user of CPAP and sleeps well. [facility] Medical History COPD (chronic obstructive pulmonary disease) DIVYA (obstructive sleep apnea) Obesity (BMI 30-39.9) Interstitial lung disease Shortness of breath on exertion Post covid-19 condition, unspecified Depression Hx of spinal stenosis Personal history of COVID-19 Skin cancer Arthritis Type 2 diabetes mellitus Pulmonary embolism Seasonal allergies Sleep apnea CAD (coronary artery disease) Surgical History Hx of cardiac catheterization Hx of heart artery stent H/O colonoscopy Hx of heart bypass surgery History of back surgery Hx of tonsillectomy Social History Household Members: Family and Children Are you a primary health care specialist to a significant other at home: No Do you presently have visiting nurse or other home services: No Alcohol intake: former Patient Tobacco Use Status: Former Tobacco user Tobacco use type: Cigarette Substance Use Type: Marijuana Review of Systems Const All systems reviewed & are unremarkable except as noted in HPI and below Eyes Reports no additional complaints ENT Reports nasal congestion (MILD INTERMITTENT) Card Reports leg edema and Reports dyspnea on exertion Resp Reports as per HPI and Reports dyspnea on exertion GI Reports no additional complaints Reports no additional complaints Musc Reports other (nonspecific muscular weakness) Skin/Breast Reports system reviewed and no additional complaints, except as documented Neuro Reports memory loss (Mild) Psych Denies anxiety, Denies depression and Reports memory loss (Mild) Endo Reports no additional complaints Jose Daniel/Lymph Reports no additional complaints Physical Exam Vital Signs: Last Vital Signs Pulse 63 07/29/24 13:59 BP 118/64 07/29/24 13:59 Pulse Ox 96 07/29/24 13:59 Oxygen Delivery Method Room Air 07/29/24 13:59 Const General: comfortable, no acute distress, alert and awake Orientation/consciousness: patient oriented x3 HEENT Head: Yes normal to inspection General nose exam: No nasal polyps present and No nasal discharge present Face and sinus: Yes sinuses nontender Mouth: oropharynx normal Throat: Yes posterior oropharynx normal Eyes General: appearance normal, both eyes and all related structures Neck Neck: Yes normal visual inspection, Yes no lymphadenopathy, Yes trachea midline and Yes no JVD Thyroid: Thyroid normal Chest Chest palpation & inspection: abnormal inspection of the chest (Midline scar from previous CABG surgery), normal palpation of entire chest wall and no tenderness Resp Other: Percussion note is resonant, breath sounds are equal on both sides. No crepitations or wheezes are heard. Cardio Palpation: normal PMI Rate: regular rate Rhythm: regular rhythm Heart sounds: no gallops and no murmurs GI Palpation (GI): Soft to palpation, nontender, No hepatosplenomegaly present and no masses Auscultation: normal bowel sounds Back/Spine/Pelvis Thoracic/Lumbar Spine: thoracic and lumbar spine normal to inspection and thoraco-lumbar ROM limited Skin General skin exam: no rashes or lesions noted Neuro General: patient oriented x3 and no focal motor deficits Cranial nerves: Yes CN's II-XII intact bilaterally Extrem General: Yes normal to inspection, Yes no calf tenderness and Yes venous stasis dermatitis (Mild chronic stasis dermatitis of both legs) Psych Appearance: grossly normal and well kempt Speech and movement: Normal speech and movement present Assessment & Plan Assessment & Plan (1) Obesity (BMI 30-39.9): Comment: HE IS MODERATELY OBESE, TRYING TO DECREASE HIS CALORIES INTAKE. NOT ABLE TO DO MUCH EXERCISE. Code(s): E66.9 - Obesity, unspecified Category: Medical Plan: There is not much potential for him to lose weight . (2) DIVYA (obstructive sleep apnea): Comment: PATIENT HAS LONG-STANDING HISTORY OF OBSTRUCTIVE SLEEP APNEA AND USES CPAP REGULARLY. IN FACT WITHOUT THE CPAP HE CANNOT SLEEP GOOD ANYWAY. Code(s): G47.33 - Obstructive sleep apnea (adult) (pediatric) Category: Medical Plan: ADVISED TO CONTINUE USING CPAP REGULARLY AND SLEEP AT LEAST 6-7 HOURS PER NIG SUSTAINED BOUT OF COUGH OR WHEEZING. HT (3) COPD (chronic obstructive pulmonary disease): Comment: PULMONARY FUNCTION TEST DOES INDICATE MILD TO MODERATE DEGREE OF OBSTRUCTIVE AIRWAY DISORDER HOWEVER THERE IS NO RESPONSE TO BRONCHODILATOR THERAPY Code(s): J44.9 - Chronic obstructive pulmonary disease, unspecified Category: Medical Plan: HE IS ADVISED TO USE ALBUTEROL 2 PUFFS Q 4-6 HOURS ONLY P.R.N IF THERE IS ANY SUSTAINED BOUT OF COUGH OR WHEEZING (4) Interstitial lung disease: Comment: PER CT SCAN HE HAS VERY MILD/EARLY INTERSTITIAL LUNG DISEASE IN THE BASILAR AREAS . DOES NOT NEED ANY ACTIVE TREATMENT FOR THIS. Code(s): J84.9 - Interstitial pulmonary disease, unspecified Category: Medical Plan: ILD IS VERY MINIMAL AND OF NO SIGNIFICANT CONSEQUENCE. (5) Shortness of breath on exertion: Comment: DYSPNEA ON EXERTION, IS DUE TO COMBINATION OF OBESITY, RESTRICTIVE LUNG DISORDER, AND OBSTRUCTIVE AIRWAY DISORDER WELL DECONDITIONING, I MADE HIM WALK WITH ME IN THE HALLWAY FOR 4 MINUTES, HE DID HAVE MILD TO MODERATE SHORTNESS OF BREATH BUT THERE WAS NO DROP IN O2 SAT . Code(s): R06.02 - Shortness of breath Category: Medical Plan: ADVISED TO KEEP ON DOING BREATHING EXERCISES WITH THE INCENTIVE SPIROMETER ABOUT 3 TIMES A DAY. WALK AT A SLOW PACE ESPECIALLY WHEN CLIMBING STAIRS. Coding Level of Care Code Est Pt Level 3 (87296) Diagnoses Obesity (BMI 30-39.9) E66.9 DIVYA (obstructive sleep apnea) G47.33 COPD (chronic obstructive pulmonary disease) J44.9 Interstitial lung disease J84.9 Shortness of breath on exertion R06.02
== END 2024-07-29 14:19 | disposition home or self-care (01) ==
PROVIDERS: PCP General Practice; Visit Provider Internal Medicine
DX: E66.9 Obesity, unspecified (principal); G47.33 Obstructive sleep apnea (adult) (pediatric); J44.9 Chronic obstructive pulmonary disease, unspecified; J84.9 Interstitial pulmonary disease, unspecified; R06.02 Shortness of breath
CPT/HCPCS: 99213

== ENCOUNTER → 2024-07-29 13:58 | Outpatient (BNVA) | payer MEDICARE, SELFPAY | PROVIDERS: PCP General Practice; Visit Provider Internal Medicine | DX: J44.9 Chronic obstructive pulmonary disease, unspecified (principal); J84.9 Interstitial pulmonary disease, unspecified; G47.33 Obstructive sleep apnea (adult) (pediatric); E66.9 Obesity, unspecified; R06.02 Shortness of breath; Z99.89 Dependence on other enabling machines and devices | CPT/HCPCS: 99212 ==

== ENCOUNTER 2025-01-28 15:53 | Outpatient (AMB) | payer MEDICARE, SELFPAY ==
[2025-01-28 15:59] VITALS: BP 120/62; PULSE 61; O2SAT 98; BMI 37.1
--- NOTE | 2025-01-28 15:59 | A.OFFVIS_ITS ---
Vital Signs 01/28/25 15:59 Height 6 ft 3 in Weight 296 lb 8.348 oz BMI 37.1 BP 120/62 Blood Pressure Location Lt brachial Position Sitting Pulse 61 Pulse Source Pulse Oximeter Pulse Oximetry (%) 98 Oxygen Delivery Method Room Air Intake Visit Reasons: HACKETT Intake Note: pt is here for follow up and states his short of breath with walking is okay. Geological Drafter Required: No Allergies No Known Allergies Allergy (Verified 01/28/25 16:36) Medication List - Last Reconciled 01/28/25 by Maria Elena Del Rio MD albuterol sulfate 90 mcg/actuation 2 puffs PO Q4-6H PRN aspirin 81 mg PO DAILY atorvastatin 80 mg PO DAILY carvedilol 12.5 mg PO BID chlorthalidone 25 mg PO DAILY cholecalciferol (vitamin D3) (Vitamin D3) 50 mcg PO DAILY clopidogrel 75 mg PO DAILY coQ10 (ubiquinol) 100 mg PO BID cyanocobalamin (vitamin B-12) (Vitamin B-12) 500 mcg PO DAILY furosemide 40 mg PO DAILY gabapentin 400 mg PO TID lisinopril 20 mg PO DAILY loratadine (Claritin) 10 mg PO DAILY memantine ER (Namenda XR) PO PER PKG DIR metformin 500 mg PO BID montelukast 10 mg PO QPM multivitamin 1 tab PO DAILY nitroglycerin 0.4 mg sublingual DIRECTED PRN pyridoxine (vitamin B6) (Vitamin B-6) 100 mg PO DAILY zinc acetate 50 mg PO DAILY Do you need a note to return to daycare/school/sports/work: No HPI HPI HACKETT: Details: This 74 years old gentleman is here for follow-up after 6 months . He is on a healthy diet with the help of his daughter in-law, and since his last visit he has lost 21 lb of weight. He definitely feels better and his shortness of breath on walking around is much less. He has had no attacks of acute asthma, so he hardly needs to use albuterol. He is also a case of obstructive sleep apnea diagnosed about 14 or 15 years ago. He has been using CPAP all along. And has the same old machine. He say is the machine is working okay and not giving him any problem, but it does not transmit information for compliance checkup. [facility] Medical History COPD (chronic obstructive pulmonary disease) DIVYA (obstructive sleep apnea) Obesity (BMI 30-39.9) Interstitial lung disease Shortness of breath on exertion Post covid-19 condition, unspecified Depression Hx of spinal stenosis Personal history of COVID-19 Skin cancer Arthritis Type 2 diabetes mellitus Pulmonary embolism Seasonal allergies Sleep apnea CAD (coronary artery disease) Surgical History Hx of cardiac catheterization Hx of heart artery stent H/O colonoscopy Hx of heart bypass surgery History of back surgery Hx of tonsillectomy Social History Household Members: Family and Children Are you a primary career placement specialist to a significant other at home: No Do you presently have visiting nurse or other home services: No Alcohol intake: former Patient Tobacco Use Status: Former Tobacco user Tobacco use type: Cigarette Substance Use Type: Marijuana Review of Systems Const All systems reviewed & are unremarkable except as noted in HPI and below Eyes Reports no additional complaints ENT Reports nasal congestion (MILD INTERMITTENT) Card Reports leg edema and Reports dyspnea on exertion Resp Reports as per HPI and Reports dyspnea on exertion GI Reports no additional complaints Reports no additional complaints Musc Reports other (nonspecific muscular weakness) Skin/Breast Reports system reviewed and no additional complaints, except as documented Neuro Reports memory loss (Mild) Psych Denies anxiety, Denies depression and Reports memory loss (Mild) Endo Reports no additional complaints Jose Daniel/Lymph Reports no additional complaints Physical Exam Vital Signs: Last Vital Signs Pulse 61 01/28/25 15:59 BP 120/62 01/28/25 15:59 Pulse Ox 98 01/28/25 15:59 Oxygen Delivery Method Room Air 01/28/25 15:59 BMI result Body Mass Index 37.1 Const General: comfortable, no acute distress, alert and awake Orientation/consciousness: patient oriented x3 HEENT Head: Yes normal to inspection General nose exam: No nasal polyps present and No nasal discharge present Face and sinus: Yes sinuses nontender Mouth: oropharynx normal Throat: Yes posterior oropharynx normal Eyes General: appearance normal, both eyes and all related structures Neck Neck: Yes normal visual inspection, Yes no lymphadenopathy, Yes trachea midline and Yes no JVD Thyroid: Thyroid normal Chest Chest palpation & inspection: abnormal inspection of the chest (Midline scar from previous CABG surgery), normal palpation of entire chest wall and no tenderness Resp Other: Percussion note is resonant, breath sounds are equal on both sides. No crepitations or wheezes are heard. Cardio Palpation: normal PMI Rate: regular rate Rhythm: regular rhythm Heart sounds: no gallops and no murmurs GI Palpation (GI): Soft to palpation, nontender, No hepatosplenomegaly present and no masses Auscultation: normal bowel sounds Back/Spine/Pelvis Thoracic/Lumbar Spine: thoracic and lumbar spine normal to inspection and thoraco-lumbar ROM limited Skin General skin exam: no rashes or lesions noted Neuro General: patient oriented x3 and no focal motor deficits Cranial nerves: Yes CN's II-XII intact bilaterally Extrem General: Yes normal to inspection, Yes no calf tenderness and Yes venous stasis dermatitis (Mild chronic stasis dermatitis of both legs) Psych Appearance: grossly normal and well kempt Speech and movement: Normal speech and movement present Assessment & Plan Assessment & Plan (1) COPD (chronic obstructive pulmonary disease): Comment: PULMONARY FUNCTION TEST DOES INDICATE MILD TO MODERATE DEGREE OF OBSTRUCTIVE AIRWAY DISORDER HOWEVER THERE was NO RESPONSE TO BRONCHODILATOR THERAPY Code(s): J44.9 - Chronic obstructive pulmonary disease, unspecified Category: Medical Plan: He needs to use albuterol HFA 2 puffs Q 4-6 hours only p.r.n. which is only once in a while. He does not need any controller agent or maintenance therapy (2) DIVYA (obstructive sleep apnea): Comment: PATIENT HAS LONG-STANDING HISTORY OF OBSTRUCTIVE SLEEP APNEA AND USES CPAP REGULARLY. IN FACT WITHOUT THE CPAP HE CANNOT SLEEP GOOD ANYWAY. Discussed about if he needs a replacement are new CPAP device. In that case he may need a repeat sleep study. He say is that he is comfortable with his current machine, and would let us know if it gives any trouble. Code(s): G47.33 - Obstructive sleep apnea (adult) (pediatric) Category: Medical Plan: Continue to use the CPAP. Try to lose weight. (3) Interstitial lung disease: Comment: PER CT SCAN HE HAS VERY MILD/EARLY INTERSTITIAL LUNG DISEASE IN THE BASILAR AREAS . Code(s): J84.9 - Interstitial pulmonary disease, unspecified Category: Medical Plan: DOES NOT NEED ANY ACTIVE TREATMENT FOR THIS. Coding Level of Care Code Est Pt Level 3 (77783) Diagnoses COPD (chronic obstructive pulmonary disease) J44.9 DIVYA (obstructive sleep apnea) G47.33 Interstitial lung disease J84.9
--- OUTSIDE RECORDS SUMMARY | 2025-01-28 17:41 | XMS_ITS | Clinical Summary ---
Author Organization [facility] Address [address] [place] [address] Care Team Providers Care Lead Rider Name Role Phone Ana Lofton MD Primary Care Provider + Allergies No known active allergies Medications Medication Sig Dispensed Refills Start Date End Date Status acetaminophen (TYLENOL) 325 MG tablet Take 650 mg by mouth 4 times daily (every 6 hours) as needed. 02/23/2021 Active aspirin enteric coated (aspirin enteric coated) 81 MG EC tablet Take 81 mg by mouth daily. 02/23/2021 Active atorvastatin (LIPITOR) 80 MG tablet Take 80 mg by mouth daily. 09/18/2020 Active carvedilol (COREG) 12.5 MG tablet Take 12.5 mg by mouth 2 (two) times a day with meals. 08/18/2020 Active chlorthalidone (HYGROTON) 25 MG tablet Take 25 mg by mouth daily. 08/18/2020 Active Vitamin D3 (CHOLECALCIFEROL) 10 MCG (400 UNIT) Chew Tab Chew 10 mcg daily. Active clopidogrel (PLAVIX) 75 MG tablet Take 75 mg by mouth daily. 08/18/2020 Active coenzyme Q10 (CO Q 10) 100 MG capsule Take 100 mg by mouth daily. Active cyanocobalamin (VITAMIN B-12) 1000 MCG tablet Take 1,000 mcg by mouth daily. Active furosemide (LASIX) 40 MG tablet Take 40 mg by mouth daily. Active gabapentin (NEURONTIN) 400 MG capsule Take 400 mg by mouth 3 (three) times a day. Active isosorbide mononitrate (IMDUR) 60 MG 24 hr tablet Take 60 mg by mouth daily. 08/18/2020 Active lisinopril (PRINIVIL,ZeSTRIL) 20 MG tablet Take 20 mg by mouth daily. 09/18/2020 Active loratadine (CLARITIN) 10 MG tablet Take 10 mg by mouth daily as needed. Active metFORMIN (GLUCOPHAGE) 500 MG tablet Take 500 mg by mouth 2 (two) times a day with meals. 05/26/2020 Active methocarbamol (ROBAXIN) 750 MG tablet Take 750 mg by mouth 4 times daily (every 6 hours) as needed. 02/23/2021 Active montelukast (SINGULAIR) 10 MG tablet Take 10 mg by mouth nightly. 05/26/2020 Active oxyCODONE (ROXICODONE) 5 MG immediate release tablet Take 5 mg by mouth every 4 (four) hours as needed. 02/23/2021 Active traZODone (DESYREL) 50 MG tablet Take 50 mg by mouth nightly as needed. 07/22/2020 Active Zinc Methionate 50 MG Cap Take 50 mg by mouth daily. Active colchicine (COLCRYS) 0.6 mg tabletIndications:Po stoperative infection, unspecified type, initial encounter Take 1 tablet (0.6 mg total) by mouth 2 (two) times a day. 60 tablet 03/31/2021 Active Lactobacillus acidophilus capsuleIndications:P ostoperative infection, unspecified type, initial encounter Take 2 capsules by mouth 2 (two) times a day. 120 capsule 03/31/2021 Active minocycline (MINOCIN) 100 MG capsuleIndications:P ostoperative infection, unspecified type, initial encounter Take 1 capsule (100 mg total) by mouth 2 (two) times a day. 42 capsule 03/31/2021 Active loperamide (IMODIUM A-D) 2 MG capsuleIndications:P ostoperative infection, unspecified type, initial encounter Take 1 capsule (2 mg total) by mouth 4 times daily (every 6 hours) as needed for diarrhea. 30 capsule 1 03/31/2021 Active Active Problems Problem Noted Date Diagnosed Date Post-operative infection 03/22/2021 Postoperative infection 03/22/2021 Overview (03/22/2021): Added automatically from request for surgery [id number] Social History Tobacco Use Types Packs/Day Years Used Date Smoking Tobacco: Former Smokeless Tobacco: Never Sex and Gender Information Value Date Recorded Sex Assigned at Not on file Gender Identity Not on file Sexual Orientation Not on file Last Filed Vital Signs Vital Sign Reading Time Taken Comments Blood Pressure 107/58 03/31/2021 1:26 PM EDT Pulse 69 03/31/2021 1:26 PM EDT Temperature 36.8 ??C (98.3 ??F) 03/31/2021 1:26 PM ED T Respiratory Rate 16 03/31/2021 1:26 PM EDT Oxygen Saturation 98% 03/31/2021 1:26 PM EDT Inhaled Oxygen Concentration - - Weight 144 kg (318 lb) 03/29/2021 6:36 AM EDT Height 190.5 cm (6' 3 ) 03/24/2021 3:01 PM EDT Body Mass Index 39.75 03/24/2021 3:01 PM EDT Plan of Treatment Health Maintenance Due Date Last Done Comments Hepatitis C Virus Screening 1948 DTaP/Tdap/Td Vaccines (1 - Tdap) 1967 Colonoscopy 1993 Pneumococcal Vaccines 50+ (1 of 1 - PCV) 1998 Zoster (Shingles) Vaccine (1 of 2) 1998 RSV Vaccine 60 years and older and Patients (1 - 1-dose 75+ series) 2023 Influenza Vaccine 06/12/2024 09/12/2021, 07/16/2020 COVID-19 Vaccine ( season) 2024 01/22/2021, 12/25/2020 Hemoglobin A1C Discontinued 03/29/2021, 07/14/2020 Hepatitis B Vaccines Aged Out No long er eligible based on patient's age to complete this topic Procedures Procedure Name Priority Date/Time Associated Diagnosis Comments HEMOGLOBIN A1C WITH ESTIMATED AVERAGE GLUCOSE Routine 03/29/2021 3:10 PM EDT from Last 3 Months or Most Recently Relevant to Health Maintenance Results * Hemoglobin A1c with Estimated Average Glucose (Routine) (03/29/2021 3:10 PM EDT) Hemoglobin A1C 5.5 <5.7 % [facility] Comment: A1c% ? Interpretation 5.7 - 6.0 ?Increase risk of diabetes 6.1 - 6.4 ?Higher risk of diabetes > or = 6.5 ?? Consistent with diabetes Diabetes Care, 33(Supp 1):S1-S61, 2010 Estimated Average Glucose 111 mg/dL [facility] Blood specimen (specimen) Blood specimen / Unknown 03/29/2021 3:10 PM EDT 03/29/2021 3:55 PM EDT Margot SORIANO LAB BLOOD ORDERABLES [facility] from Last 3 Months or Most Recently Relevant to Health Maintenance Advance Directives * Full Code (Latest Code Status on File) Date Activated Date Inactivated Comments 03/25/2021 8:02 PM * Full Code Date Activated Date Inactivated Comments 03/22/2021 4:05 PM 03/25/2021 8:02 PM Healthcare Agents on File Name Relationship Healthcare Agent Relationshi p Communication Gio Munoz Adult child 4. Next of Kin ( Spouse, Adult Child, Parent, Adult Sibling, Grandparent) Care Teams Lead Rider Relationship Specialty Start Date End Date Ana Lofton MD [address] [place] [address] PCP - General 03/22/21
--- OUTSIDE RECORDS SUMMARY | 2025-01-28 17:41 | XMS_ITS | Encounter Summary ---
Author Organization [employer] Address [address] [place] [address] Care Team Providers Care Full Roll Inspector Name Role Phone Ana Lofton MD Primary Care Provider [phone] Reason for Visit * Reason Onset Date Comments Med Refill 12/31/2024 Encounter Details Date Type Department Care Team ([facility] st Contact Info) Description 12/31/2024 Refill [facility] [address] [place], [place] [phone] [facility] [address] [place] [address] Social History Tobacco Use Types Packs/Day Years Used Date Smoking Tobacco: Never Smokeless Tobacco: Never Alcohol Use Standard Drinks/Week Comments Never 0 (1 standard drink = 0.6 oz pur e alcohol) Depression Answer Date Recorded Patient Health Questionnaire-9 Score 12 06/04/2024 Patient Health Questionnaire-9 Score 12 06/04/2024 Last PHQ-9: Questionnaire Data Not on file 0 06/04/2024 Housing Stability Answer Date Recorded What is your housing situation today? I have lali ramirez 06/04/[address] you li ve. Do you have problems with any of the following? None of the above 06/04/2024 Food Insecurity Answer Date Recorded Within the past 12 months, y ou worried that your food would run out before you got money to buy more: Never True 06/04/2024 Within the past 12 months,th e food you bought just didn't last and you didn't have enough money to get more: Never True Transportation Answer Date Recorded In the past 12 months, has l ack of transportation kept you from medical appts, meetings, work or from getting things needed for daily living? No 06/04/2024 Utilities Answer Date Recorded In the past 12 months, has t he electric, gas, oil or water company threatened to shut off services in your home? No 06/04/2024 Depression Answer Date Recorded Patient Health Questionnaire-2 Score 6 06/04/2024 Internet Access Answer Date Recorded Internet Access Q1 Yes 07/14/2024 Internet Access Q2 Not on file 07/14/2024 Sex and Gender Information Value Date Recorded Sex Assigned at Male 09/11/2022 10:37 AM EDT Legal Sex Male 10:37 AM EDT Gender Identity Male 09/11/2022 10:37 AM EDT Sexual Orientation Straight 09/11/2022 10 :37 AM EDT documented as of this encounter Plan of Treatment Not on file documented as of this encounter Visit Diagnoses Not on filedocumented in this encounter Additional Health Concerns Assessment Noted Time PHQ-9 Depression Total Score: 12 024 9:52 AM EDT documented as of this encounter Care Teams Full Roll Inspector Relationship Specialty Start Date End Date Ana Lofton MD [address] [place] [address] PCP - General Family Medicine 01/18/21 Marisela Bernardo 10/26/24 documented as of this encounter
--- OUTSIDE RECORDS SUMMARY | 2025-01-28 17:41 | XMS_ITS | Encounter Summary ---
Author Organization [employer] Address [address] [address] [place] [address] Care Team Providers Care Brine Maker Name Role Phone Ana Lofton MD Primary Care Provider [phone] Reason for Visit * Reason Onset Date Comments Med Refill 12/31/2024 Encounter Details Date Type Department Care Team ([facility] st Contact Info) Description 12/31/2024 Refill [facility] [address] [place], [place] [phone] Ana Lofton MD [address] [place] [address] Chronic heart failure, unspecified heart failure type (CMS/HCC) Social History Tobacco Use Types Packs/Day Years [...] your housing situation today? I have lali ashley 06/04/[address] you li [...] documented as of this encounter Visit Diagnoses Diagnosis Chronic heart failure, unspecified heart failure type (CMS/HCC) documented in this encounter Additional Health Concerns Assessment Noted Time PHQ-9 Depression Total Score: 12 024 9:52 AM EDT documented as of this encounter Care Teams Brine Maker Relationship Specialty Start Date End Date Ana Lofton MD [address] [place] [id number] PCP - General Family Medicine 01/18/21 Arthur Chang 10/26/24 documented as of this encounter
--- OUTSIDE RECORDS SUMMARY | 2025-01-28 17:41 | XMS_ITS | Data Portability ---
Author Organization [facility] [employer], [facility], [facility] Address [address] [place] [address] Care Team Providers Care Senior Procurement Specialist Name Role Phone JEAN GONZALEZ Referring Provider [phone] LAUREN RIVAS Psychiatrist Assessment No assessment recorded. Plan of Treatment Reminders Order Date Submit Date Provider Last Modified By Organization Details Last Modified Time Details Appointments None recorded. Lab lipid panel, serum 2018 019 [facility], [address] [place], [address], 9 08:32:09 CBC 2018 019 [facility], [address] [place], [address], 9 08:32:08 CMP, serum or plasma 2018 019 [facility], [address] [place], [address], 9 08:32:08 venipunct ure 2018 019 [facility], [address] [place], [address], 9 08:32:09 HbA1c (hemoglob in A1c), blood [address] [facility], [address], [place], [address], 9 08:32:09 microalbu min, urine [address] [facility], [address], [place], [address], 9 08:32:09 urinalysi s, complete [address] [facility], [address], [place], [address], 9 08:32:09 Referral pain managemen t referral 2018 CHARLES Not available 9 10:39:14 Procedures None recorded. Surgeries None recorded. Imaging US, screening for abdominal aortic aneurysm 2018 019 [facility] [address] [facility], [place], [address], 9 16:15:09 MRI, lumbar spine, w/o contrast 2018 [facility], [address], [facility] [address], [place], [address], 9 08:25:07 Medication Orders lamotrigi ne 200 mg tablet 2018 019 INTERFACE [id number], [address] [facility], [place], [address], 9 14:49:42 carvedilo l 12.5 mg tablet 2018 019 [email or web address] [id number], [address] [facility], [place], [address], 9 14:08:17 Patient TargetsNo targets recorded. Patient Instructions Encounter Date Encounter Id Patient Instructions Last Modified By Organization Details Last Modified Time 12/27/2018 [id number] body mass index: care instructions [email or web address] Not available 12/27/2018 14:08:17 learning about healthy weight [email or web address] Not available 12/27/2018 14:08:17 Reason for Referral Pain Management Referral for Chronic back pain Referring Physician: Jean Gonzalez, Family Medicine, Encounter Date: 12/27/2018 Problems Name Problem SNOMED Code Status Onset Date Resolution Date Notes Provider Name and Address Organization Details Recorded Time Mixed hyperlip idemia 707121960 Active 2018 Victoria See [facility] 9 08:01:47 [facility] hyperten gissel 94735197 Active 2018 Victoria See [facility] 9 08:01:55 Coronary arterios clerosis 27682524 Active 2018 Victoria See [facility] 9 08:02:03 Chronic back pain 156528308 Active 2018 Victoria See [facility] 9 08:02:15 Morbid obesity 681564839 Active 2018 Victoria See [facility] 9 08:02:50 Pulmonar y embolism 80178271 Completed 201504/12/2016 Victoria See [facility] 9 08:04:07 Bipolar disorder 46454044 Active 2018 Bipolar II Disorder CHRISTIE NICOLE [address] [facility] [address], [place], [address] [place] [address] 9 14:48:53 Problem Notes None recorded. Procedures Surgical History Date Name Laterality Status Provider Name and Address Organization Details Recorded Time 10/07/20 18 cardiac catheterization completed Victoria See [facility] 12/27/2018 08:05:04 01/11/20 16 Excision of completed Victoria See [facility] 12/27/2018 08:05:37 12/13/19 08 coronary artery bypass grafts x 3 completed Victoria See [facility], [facility] 12/27/2018 08:06:01 11/12/18 59 Tonsillectomy completed Victoria See [facility], [facility] 12/27/2018 08:06:14 Imaging Results None recorded. Procedure Notes None recorded. Medical Equipment None Reported. Allergies No known drug allergies Medications Name Sig Start Date Stop Date Status Note LastModified by Organization Details LastModified Time quetiapine 25 mg tablet 12/27 completed Not Available Not Available Not Available cyclobenzapr ine 10 mg tablet TAKE 1 TABLET BY MOUTH EVERY 8 HOURS 2018 active Not Available Not Available Not Avai lable furosemide 40 mg tablet take 1 tablet daily 12/27 completed Not Available Not Available Not Available metolazone 2.5 mg tablet 12/27 completed Not Available Not Available Not Available atorvastatin 40 mg tablet 12/27 completed Not Available Not Available Not Available metformin 500 mg tablet TAKE ONE TABLET BY MOUTH ONE TIME DAILY 2018 active Not Available Not Available Not Avai lable atorvastatin 80 mg tablet take 1 tablet daily active Not Available Not Available No t Available venlafaxine ER 75 mg capsule,exte nded release 24 hr active Not Available Not Available Not Available doxycycline hyclate 100 mg capsule 12/27 completed Not Available Not Available Not Available carvedilol 12.5 mg tablet TAKE 1 TABLET BY MOUTH TWICE A DAY active Not Available Not Available No t Available lamotrigine 200 mg tablet Take 1 tablet twice a day by oral route as directed . 2018 active Not Available Not Available Not Avai lable trazodone 50 mg tablet 12/27 completed Not Available Not Available Not Available lisinopril 20 mg tablet TAKE ONE TABLET BY MOUTH ONE TIME DAILY 2018 active Not Available Not Available Not Avai lable clindamycin HCl 150 mg capsule 12/27 completed Not Available Not Available Not Available amlodipine 2.5 mg tablet 12/27 completed Not Available Not Available Not Available clopidogrel 75 mg tablet TAKE 1 TABLET BY MOUTH EVERY DAY 2018 active Not Available Not Available Not Avai lable chlorthalido ne 25 mg tablet active Not Available Not Available Not Available isosorbide mononitrate ER 60 mg tablet,exten ded release 24 hr TAKE 1 TABLET BY MOUTH EVERY DAY IN THE MORNING 2018 active Not Available Not Available Not Avai lable methocarbamo l 750 mg tablet 1 po tid active Not Available Not Available Not Available hydrocodone 7.5 mg-acetamino phen 325 mg tablet take 1 tablet 2 times a day active Not Available Not Available No t Available oseltamivir 75 mg capsule 12/27 completed Not Available Not Available Not Available gabapentin 300 mg capsule 1 po tid active Not Available Not Available Not Available montelukast 10 mg tablet TAKE ONE TABLET BY MOUTH EVERY EVENING 2018 active Not Available Not Available Not Avai lable lisinopril 5 mg tablet 12/27 completed Not Available Not Available Not Available gabapentin 100 mg capsule TAKE ONE CAPSULE BY MOUTH 3 TIMES A DAY 02/28 completed Not Available Not Available Not Available methylpredni solone 4 mg tablets in a dose pack 12/27 completed Not Available Not Available Not Available fluoxetine 20 mg capsule take 1 tablet daily active Not Available Not Available No t Available amoxicillin 875 mg-potassium clavulanate 125 mg tablet 12/27 completed Not Available Not Available Not Available ProAir HFA 90 mcg/actuatio n aerosol inhaler INHALE 2 PUFFS BY MOUTH EVERY 6 HOURS NEEDED FOR WHEEZE active Not Available Not Available No t Available Vitals Date Recorded Body weight Body mass index (BMI) Body height Body temperature Respiratory rate Heart rate Oxygen saturation Oxygen saturation in Arterial blood by Pulse oximetry Systolic blood pressure Diastolic blood pressure Provider Name and Address Organization Details Last Updated DateTime 9 756199. 78 g 43 kg/m2 190.5 cm 97.8 [degF] 20 /min 83 /min 96 % 96 % 136 mm[Hg] 74 mm[Hg] Victoria Patricia [facility], [facility] 9 13:34:57 Date Recorded Body height Body mass index (BMI) Body weight Body temperature Heart rate Respiratory rate Systolic blood pressure Diastolic blood pressure Provider Name and Address Organization Details Last Updated DateTime 9 190.5 cm 43.7 kg/m2 614020. 33 g 97.7 [degF] 80 /min 18 /min 116 mm[Hg] 78 mm[Hg] Michelle Thrasher [facility], [facility] 9 14:26:23 Social History Question Answer Notes LastModified by Organizat ion Details LastModified Time Tobacco Smoking Status Former Smoker Victoria See [facility] 12/27/2018 08:07:13 Alcohol Use No [email or web address] Information n ot available 12/27/2018 What Was The Date Of Your Most Recent Tobacco Screening? 02/28/2019 Information n ot available 06/06/2019 Sex: Unknown Functional Status None recorded. Mental Status None recorded. Family History Relationship Description Onset Age of this Age Resolved Age Notes LastModified by Organization Details LastModified Time Father Coronary arterioscler osis [email or web address] Not available 2018 08:06:46 Mother Malignant tumor of breast [email or web address] Not available 2018 08:06:56 Medical History Condition Response Back pain Y High blood pressure Y Anemia N Arthritis Y High Cholesterol Y Heart disease / Heart Attack N Hepatitis N Alcohol Overuse N Amputation (location) N Hormone Replacement N Anxiety/Stress N Allergies (other than meds) Immunizations Vaccine Type Date Status Note Provider Nam e and Address Organization Details Recorded Time Novel [id number], preservative-free 0 completed Victoria See [facility] 12/27/2018 13:35:07 Influenza, high-dose, trivalent, PF 7 completed Victoria See [facility] 12/27/2018 13:35:07 Influenza, high-dose, trivalent, PF 8 completed Victoria See [facility] 12/27/2018 13:35:07 Influenza, split virus, trivalent, preservative 3 completed Victoria See [facility] 12/27/2018 13:35:07 Influenza, split virus, trivalent, preservative 1 completed Victoria See [facility] 12/27/2018 13:35:07 Influenza, split virus, trivalent, PF 5 completed Victoria See [facility] 12/27/2018 13:35:07 pneumococcal polysaccharide PPV23 5 completed Victoria See [facility], [facility] 12/27/2018 13:35:07 influenza, unspecified formulation 8 completed [facility] See [facility] 12/27/2018 13:35:07 Past Encounters Encounter ID Performer Location Encounter Start Date Encounter Closed Date Diagnosis/Indication Diagnosis SNOMED-CT Code Diagnosis ICD10 Code Diagnosis Note [id number] Jean Gonzalez MD [address] [address] 12/27/2018 13:08:54 12/27/2018 15:23:55 Essential hypertension 93889162 I10 Chronic back pain 852177 002 M54.9 Mixed hyperlipidemia 267 679800 E78.2 Body mass index 40+ - severely obese 724712221 Z68.41 [id number] CHRISTIE NICOLE [address] [address] 02/28/2019 13:57:02 02/28/2019 15:04:53 Bipolar disorder 91641269 F31.9 Take Lamotrigin e and Venlafaxin e as Prescribed .F/U with Psychiatri st. Abdominal aortic aneurysm screening 981832254 Z13.6 Mixed hyperlipidemia 267 610347 E78.2 02/11/18 - LDL: 74, TR, HDL: 54Continue Atorvastat in as Prescribed .Continue Low Cholestero l Diet. Essential hypertension 47519700 I10 Continue Lisinopril , Carvedilol , Chlorthali done, and Isosorbide Mononitrat e as Prescribed .Continue HTN Diet. Diabetes m ellitus screening 932739666 Z13.1 Health Concerns Section Related Observation LastModified by Organization Detai ls LastModified Time None Recorded Concern Status LastModified by Organization Details LastModified Time None Recorded Advance Directives Directive None Recorded Payers Encounter Date Sequence Insurance Name Policy Number Policy Tamayo Covered Member ID Tamayo Member ID Guarantor Name 12/27/2018 1 [facility] (MEDICARE REPLACEMENT/A DVANTAGE - PPO) [id number] Jose Juan Munoz [id number] Jose Juan Munoz 02/28/2019 1 [facility] (MEDICARE REPLACEMENT/A DVANTAGE - PPO) [id number] Jose Juan Munoz [id number] Jose Juan Munoz Notes Date Note Type Note Provider Name and Address Organization Details Recorded Time 9 text/html DyslipidemiaReported bypatient.Reason for visit:continued care of chronic complaint Presenting symptoms/method of diagnosis:asymptomatic / coincidental finding on test Interventions:no interventions Current therapy:medication list reviewed (Atorvastatin) Current control and compliance:usually well controlled, asymptomatic; usually compliant with regimen Current tests/results:Lipid profile shows good control as out patient (02/11/2018) Current Symptoms/Concerns:no myalgias; no chest pain; no shortness of breath; no fatigue; no headaches; no edema; claudicationHypertension/ Hypertensive diseasesReported bypatient.Reason for visit:continued care of chronic complaint Hypertension Diagnosis:Benign Essential hypertension Complications due to HTN:CAD Age of onset/treatment:29 years old Presenting symptoms/method of dx:asymptomatic / elevated BP found on routine blood pressure check Current therapy:medication list reviewed (Lisinopril, Carvedilol, Chlorthalidone, Isosorbide Mononitrate); no side effects from medication Current control and compliance:usually well controlled; usually compliant with regimen Current Symptoms/Concerns:no chest pain; no shortness of breath; no fatigue; no edema; no palpatations Request refill of Lamotrigine 200 mg. Patient states he is going out of town for 2 weeks and will complete his current RX before he returns to [place]. Patient states he has attempted to contact his psychiatrist (Dr. Rivas) multiple times but has been unsuccessful. CHRISTIE NICOLE [address], [place], [address], [facility], [facility] 02/28/2019 17:13:51
--- OUTSIDE RECORDS SUMMARY | 2025-01-28 17:41 | XMS_ITS | Encounter Summary ---
Author Organization [employer] Address [address] [facility] 7t [place] [address] Care Team Providers Care Margarine Maker Name Role Phone Ana Lofton MD Primary Care Provider [phone] Reason for Referral * Imaging (Routine) - Closed Specialty Diagnoses / Procedures Referred By Contac t Referred To Contact Radiology Diagnoses Dyspnea on exertion Procedures CT Chest w/o Contrast Ana Lofton MD [address] [place] [address] Phone: tel: fax: [address] Phone: tel: fax: Referral ID Status Reason Start Date Expiration Date Visits Re quested Visits Authorized [id number] Closed 07/11/2023 07/10/2024 1 1 Encounter Details Date Type Department Care Team (Late st Contact Info) Description 07/11/2023 Orders Only [facility] [address] [place], [place] [phone] Ana Lofton MD [address] [place] [address] Dyspnea on exertion (Primary Dx) Social History Tobacco Use Types Packs/Day Years Used Date Smoking Tobacco: Never Smokeless Tobacco: Never Alcohol Use Standard Drinks/Week Comments Never 0 (1 standard drink = 0.6 oz pur e alcohol) Depression Answer Date Recorded Patient Health Questionnaire-9 Score 8 03/30/2023 Depression Answer Date Recorded Patient Health Questionnaire-2 Score 2 03/30/2023 Sex and Gender Information Value Date Recorded Sex Assigned at Male 09/11/2022 10:37 AM EDT Legal Sex Male 10:37 AM EDT Gender Identity Male 09/11/2022 10:37 AM EDT Sexual Orientation Straight 09/11/2022 10 :37 AM EDT documented as of this encounter Plan of Treatment Scheduled Orders Name Type Priority Associated Diagnoses Orde r Schedule CT Chest w/o Contrast Imaging Routine Dyspnea on exertion Expected: 07/11/2023, Expires: 07/11/2024 documented as of this encounter Procedures Procedure Name Priority Date/Time Associated Diagnosis Comments MR CHEST WO CONTRAST Routine 08/07/2023 10:37 AM EDT documented in this encounter Results * MR Chest w/o Contrast (08/07/2023 10:37 AM EDT) Anatomical Region Laterality Modality Chest Magnetic Resonan ce 08/07/2023 10:3 7 AM EDT Narrative 08/10/2023 2:33 PM EDT ? [facility] ?[address] ?[place] [address] ? CT Scan Report ? Signed ? Patient: Jose Juan Munoz ?MR#: [id number] ?? [id number] ? : 1950 ?Acct:[id number] ? Age/Sex: 72 / M ?ADM Date: 08/07/23 ? Loc: HO.CT ? Attending Dr: Ana Lofton MD ? Ordering Physician: Ana Lofton ?? Date of Service: 08/07/23 ?? Procedure(s): CT chest wo IV con ?? Accession Number(s): [id number] ? cc: Ana Lofton ? EXAMINATION: ?? CT CHEST WITHOUT CONTRAST ? CLINICAL INFORMATION: ?? Chest pain on exertion. ? COMPARISON: ?? None available. ? TECHNIQUE: ?? Multidetector volumetric CT imaging of the chest was done. Axial MIP ?? volume rendering provided. Sagittal and coronal reformatted images were ?? obtained. ? This CT examination was performed using dose optimization techniques as ?? appropriate, variously including the following: ?? *Automated exposure control ?? *Adjustment of mA and/or kV according to patient size (this includes ?? techniques or standardized protocols for targeted exams where dose is ?? matched to indication/reason for exam; i.e. extremities or head) ?? *Use of iterative reconstruction technique ? DLP: ?? 579 mGy-cm ? FINDINGS: ? LUNGS: Mild subpleural reticular changes at the lung bases. Mild ?? central bronchial wall thickening. No focal consolidation. No ?? suspicious pulmonary nodule. Central airways are patent. ? MEDIASTINUM: No bulky axillary, hilar or mediastinal lymphadenopathy. ?? Great vessels are normal. Heart is enlarged. No pericardial effusion. ? CORONARY ARTERY CALCIFICATION: Severe. ? PLEURA: There is no pleural effusion. No pleural mass or thickening. ? CHEST WALL: Gynecomastia. ? UPPER ABDOMEN: Bilateral adrenal adenomas. Cholelithiasis. ? OSSEOUS STRUCTURES: Prior median sternotomy. ? CT/CT chest wo IV con ?? IMPRESSION: ?? Possible early interstitial lung disease. ?? Bilateral adrenal adenomas. ?? Cholelithiasis. ? Dictated By: ?Edilson Ruiz MD ? Signed By: ?<Electronically signed by Edilson Ruiz MD in OV> ? 08/10/23 1429 ? DD/ 1037 ? TD/TT: ? Unit Manager: ? Procedure Note Ana, Image - 08/10/[address] [place] [address] [address] Scan Report Signed Patient: Jose Juan Munoz WMR#: [id number] : 9Acct:[id number] Age/Sex: 72 / MADM Date: 08/07/23 Loc: HO.CT Attending Dr: Ana Lofton MD Ordering Physician: Ana Lofton Date of Service: 08/07/23 Procedure(s): CT chest wo IV con Accession Number(s): [id number] cc: Ana Lofton EXAMINATION: CT CHEST WITHOUT CONTRAST CLINICAL INFORMATION: Chest pain on exertion. COMPARISON: None available. TECHNIQUE: Multidetector volumetric CT imaging of the chest was done. Axial MIP volume rendering provided. Sagittal and coronal reformatted images were obtained. This CT examination was performed using dose optimization techniques as appropriate, variously including the following: *Automated exposure control *Adjustment of mA and/or kV according to patient size (this includes techniques or standardized protocols for targeted exams where dose is matched to indication/reason for exam; i.e. extremities or head) *Use of iterative reconstruction technique DLP: 579 mGy-cm FINDINGS: LUNGS: Mild subpleural reticular changes at the lung bases. Mild central bronchial wall thickening. No focal consolidation. No suspicious pulmonary nodule. Central airways are patent. MEDIASTINUM: No bulky axillary, hilar or mediastinal lymphadenopathy. Great vessels are normal. Heart is enlarged. No pericardial effusion. CORONARY ARTERY CALCIFICATION: Severe. PLEURA: There is no pleural effusion. No pleural mass or thickening. CHEST WALL: Gynecomastia. UPPER ABDOMEN: Bilateral adrenal adenomas. Cholelithiasis. OSSEOUS STRUCTURES: Prior median sternotomy. CT/CT chest wo IV con IMPRESSION: Possible early interstitial lung disease. Bilateral adrenal adenomas. Cholelithiasis. Dictated By: Edilson Ruiz MD Signed By: <Electronically signed by Edilson Ruiz MD in OV> 08/10/23 1429 DD/ 1037 TD/TT: Unit Manager: Ana Lofton MD IMG MRI PROCEDURES Final Resul t documented in this encounter Visit Diagnoses Diagnosis Dyspnea on exertion- Primary Other dyspnea and respiratory abnormality documented in this encounter Additional Health Concerns Assessment Noted Time PHQ-9 Depression Total Score: 8 03/30/20 23 3:37 PM EDT documented as of this encounter Care Teams Margarine Maker Relationship Specialty Start Date End Date Ana Lofton MD [address] [place] [address] PCP - General Family Medicine 01/18/21 [facility] 10/26/24 documented as of this encounter
--- OUTSIDE RECORDS SUMMARY | 2025-01-28 17:41 | XMS_ITS | Encounter Summary ---
Author Organization [employer] Address [address] [facility] 7[address] [place] [address] Care Team Providers Care Financial Services Agent Name Role Phone Ana Lofton MD Primary Care Provider [phone] Reason for Visit * Reason Onset Date Comments Medication Question 10/27/2024 order 10/27/2024 Encounter Details Date Type Department Care Team ([facility] Contact Info) Description 10/27/2024 Telephone [facility] MEDICINE [address] [place], [place] [phone] Ana Lofton MD [address] [place], [place] [phone] Medication Question; order Social History Tobacco Use Types Packs/Day Years [...] AM EDT documented as of this encounter Miscellaneous Notes * Telephone Encounter - Lizzette Vásquez RN - 10/27/2024 2:56 PM EST TC returned to Andres [phone] in regards to below message. Andres reports the patient will be receiving PT 2x/week x1 week, 1x/week x2 weeks, 2x/week for 1 week, 1x/week for 4 weeks. Andres also provided with verbal for VNA services. Andres to f/u PRN. * Telephone Encounter - Doe Arteaga - 10/27/2024 1:44 PM EST Tc from Curtis with ([facility]) requesting a call back to discuss medication and for verbal orders for Home Physical Therapy. Contact Curtis at [phone] documented in this encounter Plan of Treatment Not on file documented as of this encounter Visit Diagnoses Not on filedocumented in this encounter Additional Health Concerns Assessment Noted Time PHQ-9 Depression Total Score: 12 024 9:52 AM EDT documented as of this encounter Care Teams Financial Services Agent Relationship Specialty Start Date End Date Ana Lofton MD [address] [place] [id number] PCP - General Family Medicine 01/18/21 [facility] 10/26/24 documented as of this encounter
--- OUTSIDE RECORDS SUMMARY | 2025-01-28 17:41 | XMS_ITS | Encounter Summary ---
Author Organization [employer] Address [address] [facility] 7[address] [place] [address] Care Team Providers Care Embedded Software Test Engineer Name Role Phone Ana Lofton MD Primary Care Provider [phone] Reason for Visit * Reason Comments Med Refill Encounter Details Date Type Department Care Team ([facility] st Contact Info) Description 09/11/2024 Refill [facility] [address] [place], [place] [phone] Ana Lofton MD [address] [place] [address] Chronic heart failure, unspecified heart failure type (CMS/HCC); Other insomnia Social History Tobacco Use Types Packs/Day Years [...] heart failure, unspecified heart failure type (CMS/HCC) Other insomnia documented in this encounter Additional Health Concerns Assessment Noted Time PHQ-9 Depression Total Score: 12 024 9:52 AM EDT documented as of this encounter Care Teams Embedded Software Test Engineer Relationship Specialty Start Date End Date Ana Lofton MD [address] [place] [address] PCP - General Family Medicine 01/18/21 [facility] 10/26/24 documented as of this encounter
--- OUTSIDE RECORDS SUMMARY | 2025-01-28 17:41 | XMS_ITS | Encounter Summary ---
Author Organization [employer] Address [address] [facility] 7t [place] [address] Care Team Providers Care Real Estate Instructor Name Role Phone Ana Lofton MD Primary Care Provider [phone] Reason for Visit * Reason Onset Date Comments Med Refill 12/31/2024 Encounter Details Date Type Department Care Team ([facility] st Contact Info) Description 12/31/2024 Refill [facility] [address] [place], [place] [phone] Ana Lofton MD [address] [place], [place] [phone] Moderate episode of recurrent major depressive disorder (CMS/HCC); Chronic obstructive pulmonary disease, unspecified COPD type (CMS/HCC); Chronic heart failure, unspecified heart failure type (CMS/HCC); Essential hypertension; Type 2 diabetes mellitus without complication, without long-term current use of insulin (CMS/HCC); Other insomnia Social History Tobacco Use [...] as of this encounter Visit Diagnoses Diagnosis Moderate episode of recurrent major depressive disorder (CMS/HCC) Chronic obstructive pulmonary disease, unspecified COPD type (CMS/HCC) Chronic heart failure, unspecified heart failure type (CMS/HCC) Essential hypertension Unspecified essential hypertension Type 2 diabetes mellitus without complication, without long-term current use of insulin (CMS/HCC) Other insomnia documented in this encounter Additional Health Concerns Assessment Noted Time PHQ-9 Depression Total Score: 12 024 9:52 AM EDT documented as of this encounter Care Teams Real Estate Instructor Relationship Specialty Start Date End Date Ana Lofton MD [address] [place] [address] PCP - General Family Medicine 01/18/21 [facility] [place] 10/26/24 documented as of this encounter
--- OUTSIDE RECORDS SUMMARY | 2025-01-28 17:41 | XMS_ITS ---
Author Name [employer] Organization Unknown History of Medication Use Medication Directions Dispensed Refills Start Date End Date Stat us isosorbide mononitrate (IMDUR) 60 MG 24 hr tablet Take 60 mg by mouth daily. 08/18/2020 active Lactobacillus acidophilus capsule Take 2 capsules by mouth 2 (two) times a day. 03/31/2021 active oxyCODONE (ROXICODONE) 5 MG immediate release tablet Take 5 mg by mouth every 4 (four) hours as needed. 02/23/2021 active lisinopril (PRINIVIL,ZeSTRIL) 20 MG tablet Take 20 mg by mouth daily. 09/18/2020 active gabapentin (NEURONTIN) 400 MG capsule Take 400 mg by mouth 3 (three) times a day. active minocycline (MINOCIN) 100 MG capsule Take 1 capsule (100 mg total) by mouth 2 (two) times a day. 03/31/2021 active traZODone (DESYREL) 50 MG tablet Take 50 mg by mouth nightly as needed. 07/22/2020 active clopidogrel (PLAVIX) 75 MG tablet Take 75 mg by mouth daily. 08/18/2020 active montelukast (SINGULAIR) 10 MG tablet Take 10 mg by mouth nightly. 05/26/2020 active Problems Problem Status Onset Date Problem Type Date of Resolution Source Mixed hyperlipidemia active EncounterDiagnosisA ct CCT Post-operative infection active 2021-03-22 ProblemAct [facility] Care Team Organization Name Specialty Phone Email Start Date End Da te [facility] Primary Care [facility]
--- OUTSIDE RECORDS SUMMARY | 2025-01-28 17:41 | XMS_ITS | Clinical Summary ---
Author Organization [employer] Address [address] [facility] [address] [place] [address] Care Team Providers Care Lineman Service Or Work Dispatcher Name Role Phone Ana Lofton MD Primary Care Provider Allergies No known active allergies Medications Zinc Monomethionine powder Take 50 mg by mouth in the morning. Active nitroglycerin (Nitrostat) 0.4 MG SL tablet TAKE 1 TABLET UNDER THE TONGUE EVERY 5 MINUTES NEEDED FOR CHEST PAIN. DO NOT EXCEED 3 DOSES/15 MINUTES. IF PAIN PERSISTS SEEK MEDICAL ATTENTION 08/26/20 22 Active gabapentin (Neurontin) 400 MG capsuleIndication s:Type 2 diabetes mellitus without complication, without long-term current use of insulin ([facility]) Take 1 capsule (400 mg) by mouth 3 times daily. 270 capsule 3 06/04/20 24 Active amLODIPine (Norvasc) 5 MG tablet Take 5 mg by mouth Once per day. 10/14/20 24 Active aspirin 81 MG EC tablet Take 81 mg by mouth Once per day. OTC 05/24/20 21 Active Diclofenac Sodium 1 % gel Apply 2 g topically if needed in the morning and at bedtime (pain). 10/14/20 24 Active memantine (Namenda) 5 MG tablet Take 1 tablet by mouth 2 times daily. 09/24/20 24 Active ranolazine (Ranexa) 500 MG 12 hr tablet Take 500 mg by mouth 2 times daily. 10/14/20 24 Active Repatha 140 MG/ML injection 11/14/19 25 Active furosemide (Lasix) 40 MG tablet Take 1 tablet (40 mg) by mouth in the morning. 90 tablet 3 12/31/19 25 Active albuterol 108 (90 Base) MCG/ACT inhalerIndication s:Chronic obstructive pulmonary disease, unspecified COPD type (CMS/HCC) INHALE 2 PUFFS BY MOUTH EVERY 4 TO 6 HOURS NEEDED 8.5 g 12/31/19 25 Active atorvastatin (Lipitor) 80 MG tabletIndications :Chronic heart failure, unspecified heart failure type (CMS/HCC),Essenti al hypertension TAKE 1 TABLET BY MOUTH EVERY DAY AT BEDTIME 90 tablet 12/31/19 25 Active isosorbide mononitrate ER (Imdur) 120 MG 24 hr tabletIndications :Chronic heart failure, unspecified heart failure type (CMS/HCC),Essenti al hypertension Take 1 tablet (120 mg) by mouth Once per day. Do not crush or chew. 90 tablet 12/31/19 25 Active Symbicort 80-4.5 MCG/ACT inhalerIndication s:Chronic obstructive pulmonary disease, unspecified COPD type (CMS/HCC) Inhale 2 puffs 2 times daily. 1 each 12/31/19 25 Active lisinopril 5 MG tabletIndications :Essential hypertension Take 1 tablet (5 mg) by mouth Once per day. 90 tablet 12/31/19 25 Active clopidogrel (Plavix) 75 MG tablet Take 1 tablet (75 mg) by mouth Once per day. 90 tablet 12/31/19 25 Active allopurinol (Zyloprim) 100 MG tablet Take 1 tablet (100 mg) by mouth Once per day. 90 tablet 1 12/31/19 25 2024 Active FLUoxetine (PROzac) 20 MG capsuleIndication s:Moderate episode of recurrent major depressive disorder (CMS/HCC) Take 1 capsule (20 mg) by mouth Once per day. 90 capsule 12/31/19 25 Active carvedilol (Coreg) 12.5 MG tabletIndications :Chronic heart failure, unspecified heart failure type (CMS/HCC) take 1 tablet by oral route 2 times every day with food 180 tablet 12/31/19 25 Active metFORMIN (Glucophage) 500 MG tablet TAKE 1 TABLET BY MOUTH TWICE DAILY WITH THE MORNING AND EVENING MEAL 180 tablet 12/31/19 25 Active traZODone (Desyrel) 50 MG tabletIndications :Other insomnia Take 1 tablet (50 mg) by mouth if needed at bedtime for sleep. TAKE 1 TABLET(50 MG) BY MOUTH AT BEDTIME 90 tablet 3 02/19/20 25 Active furosemide (Lasix) 40 MG tablet TAKE 1 TABLET(40 MG) BY MOUTH IN THE MORNING 90 tablet 06/02/202024 Discontinued(R eorder (will not trigger notification to Pharmacy)) FLUoxetine (PROzac) 20 MG capsuleIndication s:Moderate episode of recurrent major depressive disorder (CMS/HCC) Take 1 capsule (20 mg) by mouth Once per day. 90 capsule 06/04/202024 Discontinued(R eorder (will not trigger notification to Pharmacy)) albuterol 108 (90 Base) MCG/ACT inhalerIndication s:Chronic obstructive pulmonary disease, unspecified COPD type (CMS/HCC) INHALE 2 PUFFS BY MOUTH EVERY 4 TO 6 HOURS NEEDED 8.5 g 06/04/202024 Discontinued(R eorder (will not trigger notification to Pharmacy)) atorvastatin (Lipitor) 80 MG tabletIndications :Chronic heart failure, unspecified heart failure type (CMS/HCC),Essenti al hypertension TAKE 1 TABLET BY MOUTH EVERY DAY AT BEDTIME 90 tablet 06/04/202024 Discontinued(R eorder (will not trigger notification to Pharmacy)) isosorbide mononitrate ER (Imdur) 120 MG 24 hr tabletIndications :Chronic heart failure, unspecified heart failure type (CMS/HCC),Essenti al hypertension Take 1 tablet (120 mg) by mouth Once per day. Do not crush or chew. 90 tablet 06/04/202024 Discontinued(R eorder (will not trigger notification to Pharmacy)) Symbicort 80-4.5 MCG/ACT inhalerIndication s:Chronic obstructive pulmonary disease, unspecified COPD type (CMS/HCC) Inhale 2 puffs 2 times daily. 1 each 06/04/202024 Discontinued(R eorder (will not trigger notification to Pharmacy)) lisinopril 5 MG tabletIndications :Essential hypertension Take 1 tablet (5 mg) by mouth Once per day. 90 tablet 06/04/202024 Discontinued(R eorder (will not trigger notification to Pharmacy)) clopidogrel (Plavix) 75 MG tablet Take 1 tablet (75 mg) by mouth Once per day. 90 tablet 3 06/04/20 24 2024 Discontinued(R eorder (will not trigger notification to Pharmacy)) traZODone (Desyrel) 50 MG tabletIndications :Other insomnia TAKE 1 TABLET(50 MG) BY MOUTH AT BEDTIME 90 tablet 3 09/12/20 24 2024 Discontinued(R eorder (will not trigger notification to Pharmacy)) carvedilol (Coreg) 12.5 MG tabletIndications :Chronic heart failure, unspecified heart failure type (CMS/HCC) take 1 tablet by oral route 2 times every day with food 180 tablet 3 09/12/20 24 2024 Discontinued(R eorder (will not trigger notification to Pharmacy)) metFORMIN (Glucophage) 500 MG tablet TAKE 1 TABLET BY MOUTH TWICE DAILY WITH THE MORNING AND EVENING MEAL 180 tablet 3 09/15/20 24 2024 Discontinued(R eorder (will not trigger notification to Pharmacy)) allopurinol (Zyloprim) 100 MG tablet Take 1 tablet (100 mg) by mouth Once per day. 90 tablet 1 11/19/19 25 2024 Discontinued(R eorder (will not trigger notification to Pharmacy)) Active Problems Problem Noted Date Diagnosed Date Diabetes due to underlying condition w oth circu latory comp 11/19/2024 Type 2 diabetes mellitus wit hout complication, without long-term current use of insulin 11/19/2024 Acute idiopathic gout involving toe of right maya t 11/19/2024 Overview (11/19/2024): Dx at [facility] 10[place], tx with steroid and colchicine Assessment & Plan (11/19/2024 8:53 AM EST): Will not continue colchicine for prophylaxis due to potential interaction with ranolazine Switch to allopurinol, renally dosed 100mg daily Class 2 severe obesity with serious comorbidity and body mass index (BMI) of 37.0 to 37.9 in adult 11/17/2024 ILD (interstitial lung disease) 10/31/2023 Assessment & Plan (10/31/2023 10:49 AM EST): Mild, post-COVID Saw pulm 08/2023 IS and work on regaining strenght Right hip pain 10/31/2023 Mass of left submandibular region 10/31/2023 Chest pain on exertion 07/04/2023 Dyspnea on exertion 07/04/2023 Assessment & Plan (07/09/2023 3:10 AM EDT): Referral to pul, to be done after CT scan is complete Memory loss 04/11/2023 Overview (06/06/2024): Normal MMSE 03/2023 Assessment & Plan (11/19/2024 8:55 AM EST): On Memantine 5mg BID daily from Dr Owusu neurologist Recommend followup and mgmt of this medication by Dr Owusu Also discuss driving limitations Assessment & Plan (06/06/2024 11:59 AM EDT): Continue to call [facility] to have PET scan scheduled for rule in/out Alzheimer's diagnosis Assessment & Plan (01/30/2024 9:29 AM EDT): Seen and evaluated by neurology, with MRI and CS results to be reviewed at the end of this week Unsure of the significance of the increased protein concentration in CSF Viral and bacterial infectious PCRs negative Assessment & Plan (07/09/2023 3:10 AM EDT): Neurology referral Degenerative lumbar spinal stenosis 05/23/2021 Stage 3 chronic kidney disease 05/23/2021 Postoperative infection 03/22/2021 Overview (07/04/2023): Added automatically from request for surgery [id number] Chronic low back pain 12/19/2019 Chronic obstructive pulmonary disease 12/19/2019 Assessment & Plan (11/19/2024 8:52 AM EST): Continue RANI and Symbicort Has regular f/u with Dr Jones Deep diaphragmatic breathing recommended Heart failure 12/19/2019 Assessment & Plan (11/19/2024 8:54 AM EST): Awaiting cardiac rehab Insomnia 12/19/2019 Mixed dyslipidemia 12/19/2019 Seasonal allergies 12/19/2019 Moderate episode of recurrent major depressive d isorder 07/23/2018 Assessment & Plan (11/19/2024 8:56 AM EST): Continue Prozac 20mg daily, can increase to 30mg or 40mg Pursue relationships, experiences that are meaningful currently Followup with language learning and practice Assessment & Plan (06/06/2024 11:57 AM EDT): Restart Prozac 20mg daily Essential hypertension 09/27/2017 Assessment & Plan (11/19/2024 8:54 AM EST): Managed by cardiology, at goal Lasix 40mg, Lisinopril 5mg, Isosorbide ER 120mg, Amlodipine 5mg, Ranolazine 500mg BID S/P coronary artery stent placement 09/27/2017 Mixed hyperlipidemia 09/27/2017 Coronary artery disease invo lving iroquois coronary artery of iroquois heart with unstable angina pectoris 09/27/2017 Assessment & Plan (11/19/2024 8:53 AM EST): CAD with history of 3-vessel CABG (2007) Sees [facility] history of coronary stents (2004, 2005, 2015) NSTEMI (2017) On Plavix 75mg and ASA 81mg daily Assessment & Plan (06/06/2024 12:07 PM EDT): CAD with history of 3-vessel CABG (2007) Saw [facility] 05/2021 and restarted Lasix 20mg due to BNP of 270. history of coronary stents (2004, 2005, 2015) NSTEMI (2017 On Plavix 75mg daily Pulmonary embolism 11/12/2015 Assessment & Plan (11/19/2024 8:54 AM EST): S/p 12 months of anticoagulation Resolved Problems Problem Noted Date Diagnosed Date Resolved Date Diabetes mellitus 05/23/2021 06/06/2024 Assessment & Plan (06/06/2024 11:58 AM EDT): Current A1c: 5.7 BMP: Microalbumin: Foot Exam: Complete at follow up Eye Exam: Discuss at follow up Lipid panel: ASCVD: The ASCVD Risk score (Gustavo GARNER, et al., 2019) failed to calculate for the following reasons: The patient has a prior IL or stroke diagnosis Statin: Yes ASA: Yes JOSE/ARB: Yes Encouraged regular aerobic exercise for improved glycemic control Encouraged daily foot checks Encouraged lean protein snacks and to avoid foods high in sugar and simple carbohydrates Treatment Goals: A1c goal: <7% FBG goal: <130 2 hour post prandial goal: <180 Class 2 obesity 12/27/2018 11/19/2024 Normocytic anemia 09/27/2017 06/06/2024 Encounters Date Type Department Care Team Description 12/31/2024 Refill [facility] MEDICINE [address] [place], [place] [phone] [facility] 12/31/2024 Refill [facility] MED & PEDS [address], [place] [phone] Ana Lofton MD Chronic heart failure, unspecified heart failure type ([facility]) 12/31/2024 Refill [facility] MEDIC[facility] [address] [place], [place] [phone] Ana Lofton MD Moderate episode of recurrent major depressive disorder ([facility]); Chronic obstructive pulmonary disease, unspecified COPD type ([facility]); Chronic heart failure, unspecified heart failure type ([facility]); Essential hypertension; Type 2 diabetes mellitus without complication, without long-term current use of insulin ([facility]); Other insomnia 11/17/2024 2:45 PM EST Office Visit [facility] [address] [place] [address] Ana Lofton MD Diabetes due to underlying condition w oth circulatory comp ([facility]) (Primary Dx); Type 2 diabetes mellitus without complication, without long-term current use of insulin ([facility]); Dietary counseling; Exercise counseling; Class 2 severe obesity with serious comorbidity and body mass index (BMI) of 37.0 to 37.9 in adult, unspecified obesity type ([facility]); Pulmonary embolism, unspecified chronicity, unspecified pulmonary embolism type, unspecified whether acute cor pulmonale present ([facility]); Chronic heart failure, unspecified heart failure type ([facility]); Chronic obstructive pulmonary disease, unspecified COPD type ([facility]); Moderate episode of recurrent major depressive disorder ([facility]); Stage 3a chronic kidney disease ([facility]); ILD (interstitial lung disease) ([facility]); Coronary artery disease involving iroquois coronary artery of iroquois heart with unstable angina pectoris ([facility]); Essential hypertension; Severe obesity (BMI 35.0-39.9) with comorbidity ([facility]); Memory loss; Mixed hyperlipidemia; Acute idiopathic gout involving toe of right foot 11/17/2024 Travel 11/13/2024 Patient Outreach [facility] MED [facility] PEDS [address], [place] [phone] Ana Lofton MD Discharge Request (CC unable to reach [place]) 11/07/2024 Patient Outreach [facility] MED & PEDS [address], [place] [phone] Ana Lofton MD 10/31/2024 Telephone [facility] MEDICINE [address] [place] [address] Kiki Lovett, PharmD from Last 3 Months Immunizations Name Administration Dates Next Due Influenza High-dose Quadriva lent Preservative Free 08/13/2023,08/22/2022,08/03/2021,07/16 Influenza, High Dose Seasona l, Preservative Free 08/04/2024,10/01/2019,08/30/2018,09/26 Influenza, IIV3, injectable 12/05/2012, 1 Influenza, Unspecified 08/12/2018 Influenza, seasonal, injecta ble, preservative free 08/16/2015 Novel [id number], preservative-free 12/29/2009 Pneumococcal Polysaccharide PPSV23 07/14/2020, RSV Bivalent 08/13/2023 Tdap 08/17/2020 Zoster, Recombinant 08/17/2020,07/14/2020 Social History Tobacco Use Types Packs/Day Years Used Date Smoking Tobacco: Never Smokeless Tobacco: Never Tobacco Cessation:Counseling Given: Not Answered Alcohol Use Standard Drinks/Week Comments Never 0 [...] Orientation Straight 09/11/2022 10 :37 AM EDT Last Filed Vital Signs Vital Sign Reading Time Taken Comments Blood Pressure 105/62 11/17/2024 2:58 PM EST Pulse 68 11/17/2024 2:58 PM EST Temperature 36.6 ??C (97.9 ??F) 11/17/2024 2:58 PM ES T Respiratory Rate 16 11/17/2024 2:58 PM EST Oxygen Saturation 96% 11/17/2024 2:58 PM EST Inhaled Oxygen Concentration - - Weight 136 kg (300 lb 1.6 oz) 11/17/2024 2:58 PM EST Height 190.5 cm (6' 3 ) 11/17/2024 2:58 PM EST Body Mass Index 37.51 11/17/2024 2:58 PM EST Plan of Treatment Health Maintenance Due Date Last Done Comments Eye Exam 1958 Alcohol/Substance Use Screening 1960 Hepatitis C Screening 1966 Pneumococcal Vaccine: 50+ Years (2 of 2 - PCV) 07/14/2021 07/14/2020, 08/16/2015 Depression Monitoring (PHQ-9) 12/05/2024 06/04/2024, 06/04/2024 Diabetes: Urine Protein Screening 01/27/2025 01/28/2024 Lipid Panel 01/27/2025 01/28/2024 Diabetes: Hemoglobin A1C 05/17/2025 025, 06/04/2024, 01/28/2024, Additional history exists Depression Screening 06/04/2025 06/04/2024, 06/04/20 Diabetes: Foot Exam 06/04/2025 06/04/2024, 06/04/2024, 06/04/2024, Additional history exists SDOH Screening 06/04/2025 06/04/2024 Tobacco Screening 11/19/2025 11/19/2024 DTaP/Tdap/Td Vaccines (2 - Td or Tdap) 08/17/2030 08/17/2020 Zoster Vaccines Completed 08/17/2020, 07/14/2020 RSV Patients and Patients Aged 60 years or older Completed 08/13/2023 COVID-19 Vaccine Completed 08/04/2024, 12/2022, 08/22/2022, Additional history exists Influenza Vaccine Completed 08/04/2024, , 08/22/2022, Additional history exists HIB Vaccines Aged Out No longer eligi ble based on patient's age to complete this topic HPV Vaccines Aged Out No longer eligi ble based on patient's age to complete this topic Hepatitis A Vaccines Aged Out No long er eligible based on patient's age to complete this topic Hepatitis B Vaccines Aged Out No long er eligible based on patient's age to complete this topic IPV Vaccines Aged Out No longer eligi ble based on patient's age to complete this topic Meningococcal Vaccine Aged Out No jaz karolyn eligible based on patient's age to complete this topic RSV under 20 months Aged Out No longe r eligible based on patient's age to complete this topic Rotavirus Vaccines Aged Out No longer eligible based on patient's age to complete this topic Procedures Procedure Name Priority Date/Time Associated Diagnosis Comments POCT GLYCATED HEMOGLOBIN, TOTAL Routine 11/17/2024 3:16 PM EST Type 2 diabetes mellitus without complication, without long-term current use of insulin ([facility]) POCT GLUCOSE Routine 11/17/2024 3:16 PM EST Type 2 diabetes mellitus without complication, without long-term current use of insulin ([facility]) ALBUMIN, RANDOM URINE W/CREATININE Routine 01/28/2024 3:05 PM EDT Type 2 diabetes mellitus without complication, without long-term current use of insulin ([facility]) LIPID PANEL, STANDARD Routine 01/28/2024 3:05 PM EDT Type 2 diabetes mellitus without complication, without long-term current use of insulin ([facility]) from Last 3 Months or Most Recently Relevant to Health Maintenance Results * POCT HGB A1C (11/17/2024 3:16 PM EST) Hemoglobin A1C 5.8 4.0 - 6.0 % QC Media Lot # [id number] Lot# Expiration Date , Blood 11/17/2024 3:16 PM EST Ana Lofton MD POINT OF CARE TEST ENTER/EDIT ORDERABLES Final Result * POCT Glucose (11/17/2024 3:16 PM EST) Glucose Blood, POC 97 60 - 200 mg/dL QC Media Lot # [id number] Lot# Expiration Date [id number] Blood Capillary blood specimen / Unknown 11/17/2024 3:16 PM EST Ana Lofton MD POINT OF CARE TEST ENTER/EDIT ORDERABLES Final Result * Albumin, Random Urine W/Creatinine (01/28/2024 3:05 PM EDT) Creatinine, Urine 63.10 mg/dL [facility] Microalbumin Urine 6.0 mg/L [facility] Microalbum Creatinine Ratio Ur 9.5 <30 ug/mg cr [facility] Comment:Albumin/Creatinine R atio Reference Ranges: Normal: < 30 ug/mg creatinine Microalbuminuria: 30 - 300 ug/mg creatinineClinical Albuminuria: > 300 ug/mg creatinine Urine (Urine, Random) 01/28/2024 3:05 PM EDT 01/28/2024 3:57 PM EDT Ana Lofton MD LAB URINE ORDERABLES Final Res ult Performing Organization Address City/State/[facility] Co de Phone Number [facility] [address] [place] [phone] * (ABNORMAL) Lipid Panel, Standard (01/28/2024 3:05 PM EDT) Triglycerides 157(H) <150 mg/dL [facility] Comment:Desirable Triglyceri de: less than 150 mg/dLBorderline High Triglyceride 150-199 mg/dLHigh Triglyceride: 200-499 mg/dLVery High Triglyceride: greater than or equal to 5OO mg/dL Cholesterol 137 <200 mg/dL [facility] Comment:Desirable Cholestero l: less than 200 mg/dLBorderline High Cholesterol: 200-239 mg/dLHigh Cholesterol: greater than 239 mg/dL LDL Cholesterol Calculated 68 <100 mg/dL [facility] Comment:Desirable LDL: less than 100 mg/dLNear Optimal/Above Optimal LDL: 110- 129 mg/dLBorderline High LDL: 130-159 mg/dLHigh LDL: 160-189 mg/dLVery High LDL: greater than or equal to 190 mg/dL HDL Cholesterol 38(L) >40 mg/dL [facility] Comment:Desirable HDL: great er than 40 mg/dL Note: This HDL assay may give artificially low results in patients with liver disease. Blood Venous blood specimen / Unknown 01/28/2024 3:05 PM EDT 01/28/2024 4:05 PM EDT Ana Lofton MD LAB BLOOD ORDERABLES Final Res ult [facility] [address] [place] [address] [phone] from Last 3 Months or Most Recently Relevant to Health Maintenance Insurance MEDICARE ADVANTAGE HMO Care Teams Lineman Service Or Work Dispatcher Relationship Specialty Start Date End Date Ana Lofton MD [address] [place] [id number] PCP - General Family Medicine 01/18/21 [facility] 10/26/24
--- OUTSIDE RECORDS SUMMARY | 2025-01-28 17:42 | XMS_ITS | Patient Health Record ---
Author Organization [facility] Address [address] [place] [address] Care Team Providers Care Milk Deliverer Name Role Phone Jean Gonzalez M.D. Primary Care Provider [phone] José Manuel Crystal Unavailable [phone] Reason For Referral No Information Medications Medication SIG (Take, Route, Frequency, Duration) Notes Start Date End Date Status Low THC medical marijuana (PO) max dose of 10 mg PO 8x/day Activ e HYDROcodone-Acetaminophen 7.5-325 MG (Schedule II Drug) Oral for 30 Active Low THC medical marijuana (INH) max dose of 10 mg INH 8x/day Acti ve Montelukast Sodium 10 MG Oral for 90 Active FLUoxetine HCl 20 MG Oral for 30 Active Low THC medical marijuana (TOPICAL) max dose of 10 mg TOPICAL 8x/day Active ZTlido 1.8 % 1 patch to skin saba ve after 12 hours Externally Once a day for 30 days 01/01/2019 Active Venlafaxine HCl ER 75 MG Oral for 90 Active traZODone HCl 50 MG Oral for 30 Active Atorvastatin Calcium 80 MG Oral for 90 Active Furosemide 40 MG Oral for 60 A ctive [place] 3 01/01/2019 Active Multivitamin 01/01/2019 Active Medical marijuana (TOP) max dose of 10 mg TOPICAL 8x/day Active CoQ-10 100 MG 1 capsule with a jeimy l Orally Once a day for 30 day(s) 01/01/2019 Active Gabapentin 400 MG 1 capsule Orally sabrina ry 8 hours for 30 days Active Medical marijuana (PO) max dose of 10mg ORAL 8x/day Act jahaira QUEtiapine Fumarate 25 MG 1 tablet Orall y Once a day for 30 day(s) 01/01/2019 Active Robaxin-750 750 MG 1 tablet Orally ever y 8 hours for 30 day(s) Active ProAir HFA 01/01/2019 Active Nitroglycerin 0.4 MG as directed Sublingual Active Clopidogrel Bisulfate 75 MG Oral for 90 Active Aspirin 81 01/01/2019 Active Lisinopril 20 MG Oral for 90 A ctive Fluticasone Propionate 50 MCG/ACT 1 spray in each nostril Nasally Once a day for 30 day(s) 01/01/2019 Active ZTlido 1.8 % 1 patch to skin saba ve after 12 hours Externally Once a day for 30 days 01/20/2019 Active metFORMIN HCl 500 MG Oral for 90 Active Medical marijuana (INH) max does of 10 mg INH 8x/day Active Isosorbide Mononitrate ER 30 MG 1 PO Oral Once a day for 90 Active Methocarbamol 750 MG 1 tablet Orally tid prn for 30 day(s) 01/01/2019 Active Carvedilol 12.5 MG Oral for 90 Active Problems Problem Type SNOMED Code ICD Code Onset Dates Problem Status W/U Status Risk Notes Problem Inflammation of sacroiliac joint (77747321) Sacroiliitis (M46.1) Active confirmed Problem Lumbar radiculopathy (380725347) Lumbar radiculopathy (M54.16) Active confirmed Problem Lumbago (559523208) Lumbago (M54.5) Active confirmed Problem Lumbar spondylosis (809029726) Lumbar spondylosis (M47.816) Active confirmed Problem Peripheral vascular disease (245652512) Peripheral vascular disease (I73.9) Active confirmed Problem History of myocardial infarction (249730339) History of myocardial infarction (I25.2) Active confirmed Plan Of Treatment No Information Insurance Providers Payer Name Payer Address Payer Phone Subscriber Number Group Number Insured Name Patient Relationship to Insured Coverage Start Date Coverage End Date [employer] P[employer] [address] [place] [phone] [id number] Jose Juan Munoz Self - patient is the insured 9 Medical (General) History Medical History History ICD Code allergies Arthritis depression anxiety Diabetes heart attack heart disease hypertension vascular disease Surgical History Surgery Date(Month/Year) 3 Bypasses
--- OUTSIDE RECORDS SUMMARY | 2025-01-28 17:42 | XMS_ITS | Clinical Summary ---
Author Organization [address] Address [address] [place] [phone] Phone Care Team Providers Care Hand Cloth Cutter Name Role Phone Stan Villatoro MD Primary Care Provider Immunizations Name Administration Dates Next Due Moderna SARS-CoV-2 COVID-19, mRNA, LNP-S, preservative free 01/22/2021,12/25/2020 Surgical History Surgery Date Site/Laterality Comments CORONARY ARTERY BYPASS GRAFT 2007 PROCEDURE:CORONARY ARTERY BYPASS GRAFT NASAL SINUS SURGERY 1987 PROCEDURE:NASAL SINUS SURGERY THORACIC LAMINECTOMY 02/21/2021 Posterior PROCEDURE:THORACIC LAMINECTOMY;COMMENT:Procedure: LAMINECTOMY POSTERIOR THORACOLUMBAR 3 LEVELS; Surgeon: Ashlyn Bansal MD; Location: [facility]; Service: Spine; Laterality: Posterior; Medical History Medical History Date Comments Hypertension DX:Hypertension Myocardial infarction ([facility]) 2016 DX:Myocardial infarction ([facility]) Hyperlipidemia DX:Hyperlipidemi a Asthma DX:Asthma;COMMEN T:as a child Pulmonary embolism ([facility]) 2013 DX: Pulmonary embolism (HCC) Sleep apnea, obstructive DX:Slee p apnea, obstructive;COMMENT:CPAP Social History Tobacco Use Types Packs/Day Years Used Date Smoking Tobacco: Former Cigarettes Q uit: 11/12/1988 Smokeless Tobacco: Never Alcohol Use Standard Drinks/Week Comments Yes 0 (1 standard drink = 0.6 oz pur e alcohol) Sex and Gender Information Value Date Recorded Sex Assigned at Not on file Legal Sex Male 2:30 PM EST Gender Identity Not on file Sexual Orientation Not on file Obstetrics History Plan of Treatment Health Maintenance Due Date Last Done Comments COVID-19 Vaccine (3 - Moderna risk series) 02/19/2021 01/22/2021, 12/25/2020 Pneumococcal Vaccine: 50+ Years (2 of 2 - PCV) 07/14/2021 07/14/2020, 08/16/2015 Influenza Vaccine (#1) 2024 3, 08/22/2022, 08/03/2021, Additional history exists Falls Risk Assessment 10/15/2024 Medicare Annual Wellness Visit 10/15/2024 Social Influencers of Health Screening 10/15/2024 Depression Screening 06/04/2025 06/04/2024 Hypertension/CHF/CAD Annual BMP Blood Test 10/21/2025 10/21/2024, 10/20/2024, 10/15/2024, Additional history exists Cholesterol Screening (Lipid Panel) 01/27/2029 01/28/2024, 07/14/2020, 07/14/2020, Additional history exists DTaP,Tdap,and Td Vaccines (2 - Td or Tdap) 08/17/2030 08/17/2020 Hepatitis C Screening Completed 07/14/2020, 020 Zoster Vaccines Completed 08/17/2020, 07/14/2020 RSV Immunization Patients 60+ Years Old Completed 08/13/2023 HIB Vaccines Aged Out No longer eligi [...] on patient's age to complete this topic MMR Vaccines Aged Out No longer eligi ble based on patient's age to complete this topic Meningococcal ACWY Vaccine Aged Out N o longer eligible based on patient's age to complete this topic Meningococcal B Vacine Aged Out No lo nger eligible based on patient's age to complete this topic RSV Immunization Patients Under 20 months Aged Out No longer eligible based on patient's age to complete this topic Varicella Vaccines Aged Out No longer eligible based on patient's age to complete this topic Procedures Procedure Name Priority Date/Time Associated Diagnosis Comments BASIC METABOLIC PANEL Routine 10/21/2024 7:36 AM EST Chronic obstructive pulmonary disease, unspecified (CMS/HCC) from Last 3 Months or Most Recently Relevant to Health Maintenance Results * (ABNORMAL) Basic metabolic panel (10/21/2024 7:36 AM EST) Sodium 138 133 - 145 mmol/L LAB CHEMISTRY METHOD 10/21/2024 1:41 PM [facility] Potassium 4.7 3.5 - 5.5 mmol/L LAB CHEMISTRY METHOD 10/21/2024 1:41 PM [facility] Chloride 105 96 - 110 mmol/L LAB CHEMISTRY METHOD 10/21/2024 1:41 PM [facility] CO2 27 21 - 32 mmol/L LAB CHEMISTRY METHOD 10/21/2024 1:41 PM [facility] Anion Gap 6 3 - 11 LAB CHEMISTRY METHOD 10/21/2024 1:41 PM [facility] Glucose 79 70 - 100 mg/dL LAB CHEMISTRY METHOD 10/21/2024 1:41 PM [facility] BUN 21 5 - 25 mg/dL LAB CHEMISTRY METHOD 10/21/2024 1:41 PM [facility] Creatinine 1.33(H) 0.70 - 1.30 mg/dL LAB CHEMISTRY METHOD 10/21/2024 1:41 PM [facility] eGFR 56(L) >=60 mL/min/1. 73m2 LAB CHEMISTRY METHOD 10/21/2024 1:41 PM [facility] Comment:Calculation based on the??Chronic Kidney Disease Epidemiology Collaboration (CKD-EPI) equation refit??without adjustment for race. BUN/Creatinine Ratio 15.8 LAB CHEMISTRY METHOD 10/21/2024 1:41 PM [facility] Calcium 9.1 8.5 - 10.5 mg/dL LAB CHEMISTRY METHOD 10/21/2024 1:41 PM [facility] Blood Venous blood specimen / Unknown Venipuncture / Unknown 10/21/2024 7:36 AM EST 10/21/2024 11:13 AM EST Stan Villatoro MD LAB BLOOD ORDERABLES Final Resul t [facility] [address] [place] [address], [place] [phone] from Last 3 Months or Most Recently Relevant to Health Maintenance Insurance [employer] [place] [address] Advance Directives Documents on File Type Date Recorded Patient Homemaking Rehabilitation Consultant Expl anation Health Care Decision (hx) 02/21/2021 SURI ARVIZU Health Care Decision (hx) 02/21/2021 MIGDALIA MARLOW DIRECTIVE Care Teams Hand Cloth Cutter Relationship Specialty Start Date End Date Stan Villatoro MD [address] [facility] [address] [place] [address] PCP - General Geriatric Medicine 10/15/24
--- OUTSIDE RECORDS SUMMARY | 2025-01-28 17:42 | XMS_ITS | Encounter Summary ---
Author Organization [facility] Address [address] [place] [address] Care Team Providers Care Ammunition And Explosives Handler Name Role Phone Stan Villatoro MD Primary Care Provider [phone] Encounter Details Date Type Department Care Team (Late st Contact Info) Description 10/18/2024 Lab Requisition [facility] - Main Lab [address] [place] [address] Stan Villatoro MD [address] [place], [place] [id number] Essential (primary) hypertension Social History Tobacco Use Types Packs/Day Years [...] on file Sexual Orientation Not on file documented as of this encounter Plan of Treatment Not on file documented as of this encounter Procedures Procedure Name Priority Date/Time Associated Diagnosis Comments COMPLETE BLOOD COUNT Routine 10/20/2024 6:50 AM EST Essential (primary) hypertension BASIC METABOLIC PANEL Routine 10/20/2024 6:50 AM EST Essential (primary) hypertension documented in this encounter Results * (ABNORMAL) Basic metabolic panel (10/20/2024 6:50 AM EST) Sodium 134 133 - 145 mmol/L LAB CHEMISTRY METHOD 10/20/2024 11:07 AM [facility] Potassium 5.3 3.5 - 5.5 mmol/L LAB CHEMISTRY METHOD 10/20/2024 11:07 AM [facility] Comment:Short/difficult draw Chloride 106 96 - 110 mmol/L LAB CHEMISTRY METHOD 10/20/2024 11:07 AM [facility] CO2 21 21 - 32 mmol/L LAB CHEMISTRY METHOD 10/20/2024 11:07 AM [facility] Anion Gap 7 3 - 11 LAB CHEMISTRY METHOD 10/20/2024 11:07 AM [facility] Glucose 81 70 - 100 mg/dL LAB CHEMISTRY METHOD 10/20/2024 11:07 AM [facility] BUN 23 5 - 25 mg/dL LAB CHEMISTRY METHOD 10/20/2024 11:07 AM [facility] Creatinine 1.43(H) 0.70 - 1.30 mg/dL LAB CHEMISTRY METHOD 10/20/2024 11:07 AM [facility] eGFR 51(L) >=60 mL/min/1. 73m2 LAB CHEMISTRY METHOD 10/20/2024 11:07 AM [facility] Comment:Calculation based on the??Chronic Kidney Disease Epidemiology Collaboration (CKD-EPI) equation refit??without adjustment for race. BUN/Creatinine Ratio 16.1 LAB CHEMISTRY METHOD 10/20/2024 11:07 AM [facility] Calcium 9.1 8.5 - 10.5 mg/dL LAB CHEMISTRY METHOD 10/20/2024 11:07 AM [facility] Blood Venous blood specimen / Unknown Venipuncture / Unknown 10/20/2024 6:50 AM EST 10/20/2024 10:08 AM EST us Stan Villatoro MD LAB BLOOD ORDERABLES Edited Resu lt - Final [facility] [address] [place] [address], [place] [phone] * Complete blood count (10/20/2024 6:50 AM EST) [facility] WBC 6.7 4.8 - 10.8 K/mcL LAB HEMETOLOGY METHOD 10/20/2024 11:15 AM [facility] RBC 4.90 4.50 - 5.50 M/mcL LAB HEMETOLOGY METHOD 10/20/2024 11:15 AM [facility] Hemoglobin 15.2 13.5 - 17.5 g/dL LAB HEMETOLOGY METHOD 10/20/2024 11:15 AM [facility] Hematocrit 46.0 42.0 - 54.0 % LAB HEMETOLOGY METHOD 10/20/2024 11:15 AM [facility] MCV 93.7 79.0 - 98.0 FL LAB HEMETOLOGY METHOD 10/20/2024 11:15 AM [facility] MCH 31.0 27.0 - 32.0 pcg LAB HEMETOLOGY METHOD 10/20/2024 11:15 AM [facility] MCHC 33.0 32.0 - 37.0 g/dL LAB HEMETOLOGY METHOD 10/20/2024 11:15 AM [facility] RDW 13.5 11.0 - 15.0 % LAB HEMETOLOGY METHOD 10/20/2024 11:15 AM [facility] Platelets 167 130 - 400 K/mcL LAB HEMETOLOGY METHOD 10/20/2024 11:15 AM [facility] MPV 9.9 7.0 - 11.0 FL LAB HEMETOLOGY METHOD 10/20/2024 11:15 AM [facility] NRBC 0.0 <1.0 % LAB HEMETOLOGY METHOD 10/20/2024 11:15 AM [facility] NRBC Absolute 0.00 <0.10 K/[facility] LAB HEMETOLOGY METHOD 10/20/2024 11:15 AM EST [facility] Blood Venous blood specimen / Unknown Venipuncture / Unknown 10/20/2024 6:50 AM EST 10/20/2024 10:08 AM EST us Stan Villatoro MD LAB BLOOD ORDERABLES Final Resul t [facility] [address] [place] [address], documented in this encounter Visit Diagnoses Diagnosis Essential (primary) hypertension Unspecified essential hypertension documented in this encounter Care Teams Ammunition And Explosives Handler Relationship Specialty Start Date End Date Stan Villatoro MD [address] [place] [address] [address] [place] [address] PCP - General Geriatric Medicine 10/15/24 documented as of this encounter
--- OUTSIDE RECORDS SUMMARY | 2025-01-28 17:42 | XMS_ITS | Clinical Summary ---
Author Organization [facility] Address [address] [place] [address] Care Team Providers Care Lamination Builder Name Role Phone Unavailable Primary Care Provider Unavailabl e Source Comments PLEASE NOTE, if this patient is a minor, it may be UNLAWFUL to discuss sensitive information that is contained in these records (such as FAMILY PLANNING, MENTAL HEALTH or SUBSTANCE ABUSE) with the minor patient's parent or other person without the patient's specific authorization.[facility] Allergies No known active allergies Medications jxlpwnhj-trp-SH-l ycopen-lutein (MEN 50 PLUS MULTIVITAMIN) 300-600-300 mcg tabIndications:Mi xed dyslipidemia Take 1 Tab by mouth once daily 30 Tab 11 0 Active fluticasone propion-salmetero L (ADVAIR) 250-50 mcg/dose diskus inhalerIndication s:Chronic obstructive pulmonary disease, unspecified COPD type (HCC-CMS) Inhale 1 Puff into the lungs 2 (two) times daily 60 Each 3 0 Active cyclobenzaprine (FLEXERIL) 10 mg tabletIndications :Chronic low back pain, unspecified back pain laterality, unspecified whether sciatica present Take 1 Tab by mouth every 8 (eight) hours 90 Tab 2 0 Active nitroglycerin (NITROSTAT) 0.4 mg SL tabletIndications :Mixed dyslipidemia,Hear t failure, unspecified HF chronicity, unspecified heart failure type (HCC-CMS),History of heart bypass surgery,S/P coronary artery stent placement Place 1 Tab under the tongue every 5 (five) minutes as needed for chest pain 25 Tab 1 0 Active fluticasone propionate (FLONASE) 50 mcg/actuation nasal sprayIndications: Seasonal allergies Place 1 Whiting in both nostrils once daily 16 g 11 0 Active loratadine (CLARITIN) 10 mg tabletIndications :Seasonal allergies Take 1 Tab by mouth once daily as needed for allergies 30 Tab 11 0 Active omega 2-bqe-lfp-fish oil 1,000 mg (120 mg-180 mg) capsuleIndication s:Mixed dyslipidemia Take 1 Cap by mouth 3 (three) times daily 30 Cap 11 0 Active albuterol sulfate 90 mcg/actuation inhalerIndication s:Chronic obstructive pulmonary disease, unspecified COPD type (HCC-CMS) INHALE 2 PUFFS INTO THE LUNGS EVERY 4 HOURS NEEDED FOR SHORTNESS OF BREATH OR WHEEZING 90 g 0 Active acetaminophen (TYLENOL) 500 mg tabletIndications :Herpes zoster without complication Take 2 Tabs by mouth every 6 (six) hours as needed for pain 40 Tab 0 Active montelukast (SINGULAIR) 10 mg tabletIndications :Chronic obstructive pulmonary disease, unspecified COPD type (HCC-CMS) TAKE 1 TABLET BY MOUTH EVERY NIGHT AT BEDTIME 30 Tab 5 0 Active metFORMIN (GLUCOPHAGE) 500 mg tabletIndications :Prediabetes TAKE 1 TABLET BY MOUTH TWICE DAILY WITH A MEAL 60 Tab 5 0 Active traZODone (DESYREL) 50 mg tabletIndications :Insomnia, unspecified type TAKE 1 TABLET BY MOUTH EVERY NIGHT AT BEDTIME 30 Tab 3 0 Active clopidogreL (PLAVIX) 75 mg tabletIndications :Mixed dyslipidemia,Hear t failure, unspecified HF chronicity, unspecified heart failure type (HCC-CMS),History of heart bypass surgery,S/P coronary artery stent placement TAKE 1 TABLET BY MOUTH EVERY DAY 90 Tab 1 0 Active chlorthalidone (HYGROTEN) 25 mg tablet TAKE 1 TABLET BY MOUTH EVERY DAY 90 Tab 1 0 Active isosorbide mononitrate (IMDUR) 60 mg 24 hr tabletIndications :Mixed dyslipidemia,Hear t failure, unspecified HF chronicity, unspecified heart failure type (HCC-CMS),History of heart bypass surgery,S/P coronary artery stent placement TAKE 1 TABLET BY MOUTH EVERY MORNING 90 Tab 1 0 Active carvediloL (COREG) 12.5 mg tabletIndications :Essential hypertension TAKE 1 TABLET BY MOUTH TWICE DAILY WITH A MEAL 180 Tab 1 0 Active FLUoxetine (PROZAC) 10 mg capsule TAKE 1 CAPSULE BY MOUTH THREE TIMES DAILY WITH FOOD 90 Capsule 2 0 Active gabapentin (NEURONTIN) 300 mg capsule TAKE 1 CAPSULE BY MOUTH THREE TIMES DAILY 90 Capsule 2 1 Active atorvastatin (LIPITOR) 80 mg tabletIndications :Atorvastatin 80 mg prescribed at discharge TAKE 1 TABLET BY MOUTH EVERY DAY 90 Tablet 1 Active lisinopriL 20 mg tabletIndications :Essential hypertension TAKE 1 TABLET BY MOUTH EVERY DAY 90 Tablet 1 Active Active Problems Problem Noted Date Diagnosed Date Memory loss 04/11/2023 Overview (04/11/2023): 03/30/23 seen at [facility] medicine for memory loss post covid Assessment/Plan Diagnoses and all orders for this visit: Memory change MMSE unremarkable Labs ordered FU PCP 1 month - POCT glucose manually resulted - POCT A1C - Comprehensive Metabolic Panel - TSH; Future - RPR (Monitor) with Reflex to Titer - Vitamin B12/Folate, Serum Panel; Future Patient was seen and evaluated by WAYNE Breen in collaboration with Tati Rosales MD who has reviewed my assessment and plan. History of heart bypass surgery 12/19/2019 S/P coronary artery stent placement 12/19/2019 Heart failure ([facility]) 12/19/2019 Mixed dyslipidemia 12/19/2019 Essential hypertension 12/19/2019 Prediabetes 12/19/2019 Insomnia 12/19/2019 Seasonal allergies 12/19/2019 Chronic obstructive pulmonary disease ([facility]) 12/19/2019 Chronic low back pain 12/19/2019 Immunizations Name Administration Dates Next Due Flu, High Dose, 65y+, Fluzone High Dose 07/16/20 20 Influenza (FLUZONE), high-dose, trivalent, PF Moderna COVID-19 Vaccine, re d cap blue label, 12+ Primary Series 01/22/2021,12/25/2020 PNEUMOCOCCAL POLYSACCHARIDE PPV23 07/14/2020 TDAP 08/17/2020 ZOSTER VACCINE, RECOMBINANT (SHINGRIX) 0,07/14/2020 Family History Medical History Relation Name Comments Heart Problems Father Breast cancer Mother in her 60s Relation Name Status Comments Father Mother Social History Tobacco Use Types Packs/Day Years Used Date Smoking Tobacco: Former Smokeless Tobacco: Never Alcohol Use Standard Drinks/Week Comments Yes 0 (1 standard drink = 0.6 oz pur e alcohol) Social Connections Answer Date Recorded Social Connections and Isolation 0 12/19/2019 Financial Resource Strain Answer Date R ecorded Financial Resource Strain 0 2019 Stress Answer Date Recorded Stress 0 12/19/2019 Physical Activity Answer Date Recorded Physical Activity 0 12/19/2019 Food Insecurity Answer Date Recorded Food 0 12/19/2019 Transportation Needs Answer Date Record ed Transportation 0 12/19/2019 Housing Stability Answer Date Recorded Housing 0 12/19/2019 Safety and Environment Answer Date Lucio rded Safety 0 12/19/2019 Utilities Answer Date Recorded Utilities 0 12/19/2019 Employment Answer Date Recorded Employment 0 12/19/2019 Sex and Gender Information Value Date Recorded Sex Assigned at Male 12/19/2019 1:24 PM PST Legal Sex Male 6:21 AM PST Gender Identity Male 12/19/2019 1:24 PM PST Sexual Orientation Straight 12/19/2019 1: 24 PM PST Occupation Industry Job Start Date Job End Date retired Not on file Not on file Not on file Last Filed Vital Signs Vital Sign Reading Time Taken Comments Blood Pressure 122/68 12/19/2019 2:52 PM EST Pulse 68 12/19/2019 2:52 PM EST Temperature 36.4 ??C (97.5 ??F) 12/19/2019 2:52 PM ES T Respiratory Rate 18 12/19/2019 2:52 PM EST Oxygen Saturation - - Inhaled Oxygen Concentration - - Weight 140.6 kg (310 lb) 12/19/2019 2:52 PM EST Height 187 cm (6' 1.62 ) 12/19/2019 2:52 PM EST Body Mass Index 40.21 12/19/2019 2:52 PM EST Plan of Treatment Health Maintenance Due Date Last Done Comments Tobacco Screening 1950 Hypertension Screening (#1) 12/18/2020 Falls Prevention 07/05/2021 07/05/2020 Diabetes Screening 07/14/2021 07/14/2020, 07/14/2020 Imm-Pneumococcal 65+ (2 of 2 - PCV) 07/14/2021 07/14/2020, 08/16/2015 Ulo-[id number]-85 ( season) 2024 08/22/2022, 03/17/2022, 09/05/2021, Additional history exists Imm-Influenza (#1) 2024 08/22/2022, 0 08/03/2021, 07/16/2020, Additional history exists Alcohol and Drug Screen 11/12/2024 07/05/2020 Depression Annual Screen 11/12/2024 Imm-DTaP/Tdap/Td (2 - Td or Tdap) 08/17/2030 020 Hepatitis C Screening Completed 07/14/2020 Imm-Zoster, Recombinant Completed 08/17/2020, 07/14 Procedures Procedure Name Priority Date/Time Associated Diagnosis Comments HEPATITIS C ANTIBODY Routine 07/14/2020 9:41 AM EDT Encounter for hepatitis C screening test for low risk patient HEMOGLOBIN GLYCOSYLATED A1C Routine 07/14/2020 9:41 AM EDT Prediabetes from Last 3 Months or Most Recently Relevant to Health Maintenance Results * HEPATITIS C ANTIBODY (07/14/2020 9:41 AM EDT) HEPATITIS C VIRUS SCREEN NEGATIVE NEGATIVE [facility] Blood specimen (specimen) Blood / Unknown 07/14/2020 9:41 AM EDT 07/14/2020 9:59 AM EDT Narrative [facility] - 07/14/2020 4:48 PM EDT [employer], a member of [address] [address] [employer]ocket Engine Tester - Adela Gregg MD PT ID [id number] ORD# [id number] us Erengeovanni Roland NP LAB - BLOOD DRAW Final Result [address] [address], * HEMOGLOBIN, GLYCOSYLATED (A1C) (07/14/2020 9:41 AM EDT) GLYCATED HEMOGLOBIN A1C 5.7 <6.5 % [facility] ESTIMATED AVERAGE GLUCOSE 117 mg/dL [facility] Blood specimen (specimen) Blood / Unknown 07/14/2020 9:41 AM EDT 07/14/2020 9:59 AM EDT Narrative [facility] - 07/14/2020 6:58 PM EDT [employer], [place] [address] [employer] Tester - Adela Gregg MD PT ID [id number] ORD# [id number] Eren Roland NP LAB - BLOOD DRAW Final Result Performing Organization Address City/State/[facility] [place] [address], from Last 3 Months or Most Recently Relevant to Health Maintenance Insurance [facility]
--- OUTSIDE RECORDS SUMMARY | 2025-01-28 17:42 | XMS_ITS | Encounter Summary ---
Author Organization [facility] Address [address] [place] [address] Care Team Providers Care Site Specialist Name Role Phone Stan Villatoro MD Primary Care Provider [phone] Encounter Details Date Type Department Care Team (Late st Contact Info) Description 10/21/2024 Lab Requisition [facility] - Main Lab [address] [place] [address] Stan Villatoro MD [address] [place], [place] [id number] Chronic obstructive pulmonary disease, unspecified (CMS/HCC) Social History Tobacco Use Types Packs/Day [...] EST Chronic obstructive pulmonary disease, unspecified (CMS/HCC) documented in this encounter Results * (ABNORMAL) Basic metabolic panel (10/21/2024 7:36 AM EST) Sodium 138 133 - 145 mmol/L LAB CHEMISTRY METHOD 10/21/2024 1:41 PM EST [facility] Potassium 4.7 3.5 - 5.5 mmol/L LAB CHEMISTRY METHOD 10/21/2024 1:41 PM [facility] Chloride 105 96 - 110 mmol/L LAB CHEMISTRY METHOD 10/21/2024 1:41 PM [facility] CO2 27 21 - 32 mmol/L LAB CHEMISTRY METHOD 10/21/2024 1:41 PM [facility] Anion Gap 6 3 - 11 LAB CHEMISTRY METHOD 10/21/2024 1:41 PM [facility] Glucose 79 70 - 100 mg/dL LAB CHEMISTRY METHOD 10/21/2024 1:41 PM [facility] BUN 21 5 - 25 mg/dL LAB CHEMISTRY METHOD 10/21/2024 1:41 PM [facility] Creatinine 1.33(H) 0.70 - 1.30 mg/dL LAB CHEMISTRY METHOD 10/21/2024 1:41 PM [facility] eGFR 56(L) >=60 mL/min/1. 73m2 LAB CHEMISTRY METHOD 10/21/2024 1:41 PM [facility] Comment:Calculation based on the??Chronic Kidney Disease Epidemiology Collaboration (CKD-EPI) equation refit??without adjustment for race. BUN/Creatinine Ratio 15.8 LAB CHEMISTRY METHOD 10/21/2024 1:41 PM [facility] Calcium 9.1 8.5 - 10.5 mg/dL LAB CHEMISTRY METHOD 10/21/2024 1:41 PM [facility] Blood Venous blood specimen / Unknown Venipuncture / Unknown 10/21/2024 7:36 AM EST 10/21/2024 11:13 AM EST us Stan Villatoro MD LAB BLOOD ORDERABLES Final Resul t [facility] [address] [place] [address], documented in this encounter Visit Diagnoses Diagnosis Chronic obstructive pulmonary disease, unspecified (CMS/HCC) documented in this encounter Care Teams Site Specialist Relationship Specialty Start Date End Date Stan Villatoro MD [address] [place] [address] [address] [place] [address] PCP - General Geriatric Medicine 10/15/24 documented as of this encounter
--- OUTSIDE RECORDS SUMMARY | 2025-01-28 17:42 | XMS_ITS | Encounter Summary ---
Author Organization [employer] Address [address] [facility] 7t [place] [address] Care Team Providers Care Sales Account Coordinator Name Role Phone Ana Lofton MD Primary Care Provider [phone] Reason for Visit * Reason Comments Med Refill Encounter Details Date Type Department Care Team (Late st Contact Info) Description 02/08/2024 Refill [facility] [address] [place], [place] [phone] Ana Lofton MD [address] [place], [place] [phone] Social History Tobacco Use Types Packs/Day Years Used Date Smoking Tobacco: Never Smokeless Tobacco: Never Alcohol Use Standard Drinks/Week Comments Never 0 (1 standard drink = 0.6 oz pur e alcohol) Depression Answer Date Recorded Patient Health Questionnaire-9 Score 8 03/30/2023 Housing Stability Answer Date Recorded What is your housing situation today? I have lali ramirez 09/06/[address] you li ve. Do you have problems with any of the following? None of the above 09/06/2023 Food Insecurity Answer Date Recorded Within the past 12 months, y ou worried that your food would run out before you got money to buy more: Never True 09/06/2023 Within the past 12 months,th e food you bought just didn't last and you didn't have enough money to get more: Never True Transportation Answer Date Recorded In the past 12 months, has l ack of transportation kept you from medical appts, meetings, work or from getting things needed for daily living? No 09/06/2023 Utilities Answer Date Recorded In the past 12 months, has t he electric, gas, oil or water company threatened to shut off services in your home? No 09/06/2023 Depression Answer Date Recorded Patient Health Questionnaire-2 [...] documented as of this encounter Care Teams Sales Account Coordinator Relationship Specialty Start Date End Date Ana Lofton MD [address] [place] [address] PCP - General Family Medicine 01/18/21 [facility] 10/26/24 documented as of this encounter
--- OUTSIDE RECORDS SUMMARY | 2025-01-28 17:42 | XMS_ITS | Encounter Summary ---
Author Organization [facility]ly [facility] Address [address] [place] [address] Care Team Providers Care Intern Retail Name Role Phone Ana Lofton MD Primary Care Provider + Encounter Details Date Type Department Care Team (Late st Contact Info) Description 03/15/2021 Erroneous Encounter [facility] CONVERSION DEPT [address] [place] [id number] ProviderAdore MD Social History Tobacco Use Types Packs/Day Years Used Date Smoking Tobacco: Never Assessed Sex and Gender Information Value Date Recorded Sex Assigned at Not on file Gender Identity Not on file Sexual Orientation Not on file documented as of this encounter Plan of Treatment Not on file documented as of this encounter Visit Diagnoses Not on filedocumented in this encounter Care Teams Intern Retail Relationship Specialty Start Date End Date Ana Lofton MD [address] [place] [address] PCP - General 03/22/21 documented as of this encounter
--- OUTSIDE RECORDS SUMMARY | 2025-01-28 17:42 | XMS_ITS | Encounter Summary ---
Author Organization [facility] Address [address] [place] [address] Care Team Providers Care Mutton Puncher Name Role Phone Stan Villatoro MD Primary Care Provider [phone] Encounter Details Date Type Department Care Team (Late st Contact Info) Description 10/24/2024 Lab Requisition [facility] - Main Lab [address] [facility] [place] [address] Stan Villatoro MD [address] [place], [place] [phone] Essential (primary) hypertension Social History Tobacco Use [...] as of this encounter Visit Diagnoses Diagnosis Essential (primary) hypertension Unspecified essential hypertension documented in this encounter Care Teams Mutton Puncher Relationship Specialty Start Date End Date Stan Villatoro MD [address] [facility] [address] [place], [place] [phone] PCP - General Geriatric Medicine 10/15/24 documented as of this encounter
--- OUTSIDE RECORDS SUMMARY | 2025-01-28 17:42 | XMS_ITS | Encounter Summary ---
Author Organization Formerly [facility] Address [address] [place] [address] Care Team Providers Care Operator Engineer Name Role Phone Ana Lofton MD Primary Care Provider + Encounter Details Date Type Department Care Team ([facility] st Contact Info) Description 04/14/2021 Erroneous Encounter [facility] CONVERSION DEPT [address] [place] [phone] Provider, MD Adore Social History Tobacco Use Types Packs/Day Years Used Date Smoking Tobacco: Former Smokeless Tobacco: Never Sex and Gender Information Value Date Recorded Sex Assigned at Not on file Gender Identity Not on file Sexual Orientation Not on file COVID-19 Exposure Response Date Recorded In the last month, have you been in contact with someone who was confirmed or suspected to have Coronavirus / COVID-19? No / Unsure 03/30/2021 3:07 PM EDT documented as of this encounter Plan of Treatment Not on file documented as of this encounter Visit Diagnoses Not on filedocumented in this encounter Care Teams Operator Engineer Relationship Specialty Start Date End Date Ana Lofton MD [address] [place] [address] PCP - General 03/22/21 documented as of this encounter
--- OUTSIDE RECORDS SUMMARY | 2025-01-28 17:42 | XMS_ITS | Encounter Summary ---
Author Organization [employer] Address [address] [place] [address] [address] [place] [address] Care Team Providers Care Veneer Gluer Name Role Phone Ana Lofton MD Primary Care Provider [phone] Encounter Details Date Type Department Care Team (Late st Contact Info) Description 06/20/2023 Orders Only [facility] MED & PEDS [address] [place] [address] Laurel Carey LPN Social History Tobacco Use Types Packs/Day Years Used Date Smoking Tobacco: Never Assessed Depression Answer Date Recorded Patient Health Questionnaire-9 [...] documented as of this encounter Care Teams Veneer Gluer Relationship Specialty Start Date End Date Ana Lofton MD [address] [place] [address] PCP - General Family Medicine 01/18/21 Marisela Bernadro 10/26/24 documented as of this encounter
--- OUTSIDE RECORDS SUMMARY | 2025-01-28 17:42 | XMS_ITS | Encounter Summary ---
Author Organization [facility] Address [address] [place] [address] Care Team Providers Care Lime Sludge Kiln Operator Name Role Phone Stan Villatoro MD Primary Care Provider [phone] Encounter Details Date Type Department Care Team (Late st Contact Info) Description 10/15/2024 Lab Requisition [facility] - Main Lab [address] [facility] [place] [address] Stan Villatoro MD [address] [place], [place] [phone] Acute myocardial infarction, unspecified (CMS/HCC); Atherosclerosis of coronary artery bypass graft(s) without angina pectoris Social History Tobacco Use Types Packs/Day Years [...] Procedure Name Priority Date/Time Associated Diagnosis Comments VITAMIN D 25 HYDROXY Routine 10/15/2024 7:16 AM EST Acute myocardial infarction, unspecified (CMS/HCC) Atherosclerosis of coronary artery bypass graft(s) without angina pectoris COMPLETE BLOOD COUNT Routine 10/15/2024 7:16 AM EST Acute myocardial infarction, unspecified (CMS/HCC) Atherosclerosis of coronary artery bypass graft(s) without angina pectoris HEMOGLOBIN A1C Routine 10/15/2024 7:16 AM EST Acute myocardial infarction, unspecified (CMS/HCC) Atherosclerosis of coronary artery bypass graft(s) without angina pectoris FOLATE Routine 10/15/2024 7:16 AM EST Acute myocardial infarction, unspecified (CMS/HCC) Atherosclerosis of coronary artery bypass graft(s) without angina pectoris VITAMIN B12 Routine 10/15/2024 7:16 AM EST Acute myocardial infarction, unspecified (CMS/HCC) Atherosclerosis of coronary artery bypass graft(s) without angina pectoris COMPREHENSIVE METABOLIC PANEL Routine 10/15/2024 7:16 AM EST Acute myocardial infarction, unspecified (CMS/HCC) Atherosclerosis of coronary artery bypass graft(s) without angina pectoris documented in this encounter Results * Vitamin D 25 hydroxy (10/15/2024 7:16 AM EST) Vit D, 25-Hydroxy 36.6 30.0 - 80.0 ng/mL LAB CHEMISTRY METHOD 10/15/2024 12:27 PM EST [facility] Blood Venous blood specimen / Unknown Venipuncture / Unknown 10/15/2024 7:16 AM EST 10/15/2024 9:51 AM EST us Stan Villatoro MD LAB BLOOD ORDERABLES Final Resul t [facility] [address] [place] [address], * Folate (10/15/2024 7:16 AM EST) Folate 9.1 2.8 - 17.0 ng/ml LAB CHEMISTRY METHOD 10/15/2024 11:50 AM EST [facility] Blood Venous blood specimen / Unknown Venipuncture / Unknown 10/15/2024 7:16 AM EST 10/15/2024 9:51 AM EST us Stan Villatoro MD LAB BLOOD ORDERABLES Final Resul t Performing Organization Address [facility]/ZIP Co de Phone Number [facility] [address] [place] [address], [place] [phone] * Vitamin B12 (10/15/2024 7:16 AM EST) Pathologist [facility] Vitamin B-12 804 250 - 900 pcg/mL LAB CHEMISTRY METHOD 10/15/2024 11:50 AM EST [facility] Blood Venous blood specimen / Unknown Venipuncture / Unknown 10/15/2024 7:16 AM EST 10/15/2024 9:51 AM EST us Stan Villatoro MD LAB BLOOD ORDERABLES Final Resul t Performing Organization Address [facility] de Phone Number [facility] [address] [place] [address], [place] [phone] * Hemoglobin A1c (10/15/2024 7:16 AM EST) [facility] Hemoglobin A1C 5.2 <6.5 % LAB CHEMISTRY METHOD 10/15/2024 2:24 PM EST [facility] Mean Bld Glu Estim. 103 mg/dL LAB CHEMISTRY METHOD 10/15/2024 2:24 PM EST [facility] Blood Venous blood specimen / Unknown Venipuncture / Unknown 10/15/2024 7:16 AM EST 10/15/2024 9:51 AM EST us Stan Villatoro MD LAB BLOOD ORDERABLES Final Resul t Performing Organization Address [facility] de Phone Number [facility] [address] [place] [address], [place] [phone] * (ABNORMAL) Comprehensive metabolic panel (10/15/2024 7:16 AM EST) Sodium 138 133 - 145 mmol/L LAB CHEMISTRY METHOD 10/15/2024 11:18 AM [facility] Potassium 4.6 3.5 - 5.5 mmol/L LAB CHEMISTRY METHOD 10/15/2024 11:18 AM [facility] Comment:Hemolysis present Chloride 101 96 - 110 mmol/L LAB CHEMISTRY METHOD 10/15/2024 11:18 AM [facility] CO2 28 21 - 32 mmol/L LAB CHEMISTRY METHOD 10/15/2024 11:18 AM [facility] Anion Gap 9 3 - 11 LAB CHEMISTRY METHOD 10/15/2024 11:18 AM [facility] Glucose 81 70 - 100 mg/dL LAB CHEMISTRY METHOD 10/15/2024 11:18 AM [facility] BUN 25 5 - 25 mg/dL LAB CHEMISTRY METHOD 10/15/2024 11:18 AM [facility] Creatinine 1.13 0.70 - 1.30 mg/dL LAB CHEMISTRY METHOD 10/15/2024 11:18 AM [facility] eGFR 68 >=60 mL/min/1. 73m2 LAB CHEMISTRY METHOD 10/15/2024 11:18 AM [facility] Comment:Calculation based on the??Chronic Kidney Disease Epidemiology Collaboration (CKD-EPI) equation refit??without adjustment for race. BUN/Creatinine Ratio 22.1 LAB CHEMISTRY METHOD 10/15/2024 11:18 AM [facility] Calcium 9.1 8.5 - 10.5 mg/dL LAB CHEMISTRY METHOD 10/15/2024 11:18 AM [facility] AST (SGOT) 44(H) 10 - 42 unit/L LAB CHEMISTRY METHOD 10/15/2024 11:18 AM [facility] Comment:Hemolysis present ALT (SGPT) 55 10 - 60 unit/L LAB CHEMISTRY METHOD 10/15/2024 11:18 AM [facility] Alkaline Phosphatase 97 42 - 121 unit/L LAB CHEMISTRY METHOD 10/15/2024 11:18 AM [facility] Total Protein 6.8 6.0 - 8.0 g/dL LAB CHEMISTRY METHOD 10/15/2024 11:18 AM [facility] Albumin 3.6 3.2 - 5.0 g/dL LAB CHEMISTRY METHOD 10/15/2024 11:18 AM [facility] Total Bilirubin 0.8 0.0 - 1.4 mg/dL LAB CHEMISTRY METHOD 10/15/2024 11:18 AM [facility] Blood Venous blood specimen / Unknown Venipuncture / Unknown 10/15/2024 7:16 AM EST 10/15/2024 9:51 AM EST us Stan Villatoro MD LAB BLOOD ORDERABLES Final Resul t [facility] [address] [place] [address], [place] [phone] * Complete blood count (10/15/2024 7:16 AM EST) WBC 7.3 4.8 - 10.8 K/mcL LAB HEMETOLOGY METHOD 10/15/2024 10:58 AM [facility] RBC 5.10 4.50 - 5.50 M/mcL LAB HEMETOLOGY METHOD 10/15/2024 10:58 AM [facility] Hemoglobin 15.6 13.5 - 17.5 g/dL LAB HEMETOLOGY METHOD 10/15/2024 10:58 AM [facility] Hematocrit 48.3 42.0 - 54.0 % LAB HEMETOLOGY METHOD 10/15/2024 10:58 AM [facility] MCV 95.3 79.0 - 98.0 FL LAB HEMETOLOGY METHOD 10/15/2024 10:58 AM [facility] MCH 30.8 27.0 - 32.0 pcg LAB HEMETOLOGY METHOD 10/15/2024 10:58 AM EST [facility] MCHC 32.3 32.0 - 37.0 g/dL LAB HEMETOLOGY METHOD 10/15/2024 10:58 AM [facility] RDW 13.5 11.0 - 15.0 % LAB HEMETOLOGY METHOD 10/15/2024 10:58 AM [facility] Platelets 228 130 - 400 K/mcL LAB HEMETOLOGY METHOD 10/15/2024 10:58 AM [facility] MPV 9.6 7.0 - 11.0 FL LAB HEMETOLOGY METHOD 10/15/2024 10:58 AM [facility] NRBC 0.0 <1.0 % LAB HEMETOLOGY METHOD 10/15/2024 10:58 AM [facility] NRBC Absolute 0.00 <0.10 K/mcL LAB HEMETOLOGY METHOD 10/15/2024 10:58 AM [facility] Blood Venous blood specimen / Unknown Venipuncture / Unknown 10/15/2024 7:16 AM EST 10/15/2024 9:51 AM EST us Stan Villatoro MD LAB BLOOD ORDERABLES Final Resul t [facility] [address] [place] [address], [place] [phone] documented in this encounter Visit Diagnoses Diagnosis Acute myocardial infarction, unspecified (CMS/HCC) Atherosclerosis of coronary artery bypass graft(s) without angina pectoris documented in this encounter Care Teams Lime Sludge Kiln Operator Relationship Specialty Start Date End Date Stan Villatoro MD [address] [facility] [address] [place] [address] PCP - General Geriatric Medicine 10/15/24 documented as of this encounter
--- OUTSIDE RECORDS SUMMARY | 2025-01-28 17:42 | XMS_ITS | Encounter Summary ---
Author Organization [employer] Address [address] [facility] 7t [place] [address] Care Team Providers Care Jury Consultant Name Role Phone Ana Lofton MD Primary Care Provider [phone] Reason for Referral * Consultation (Routine) - Closed Specialty Diagnoses / Procedures Referred By Contac t Referred To Contact Neurology Diagnoses Memory loss Ana Lofton MD [address] [place] [address] Phone: tel: fax: [facility] [address] [facility] [address] [place] [address] Phone: tel: fax: Referral ID Status Reason Start Date Expiration Date V isits Requested Visits Authorized [id number] Closed Specialty Services Required 05/09/2024 05/09/2025 1 1 Encounter Details Date Type Department Care Team (Late st Contact Info) Description 05/09/2024 Orders Only [facility] MEDICINE [address] [place], [place] [phone] Ana Lofton MD [address] [place], [place] [phone] Memory loss (Primary Dx) Social History Tobacco Use Types [...] of this encounter Plan of Treatment Scheduled Referrals Name Type Priority Associated Diagnoses Orde r Schedule Referral to Neurology Outpatient Referral Routine Memory loss Expected: 05/09/2024 (Approximate), Expires: 05/09/2025 documented as of this encounter Visit Diagnoses Diagnosis Memory loss- Primary documented in this encounter Additional Health Concerns Assessment Noted Time PHQ-9 Depression Total Score: 8 03/30/20 23 3:37 PM EDT documented as of this encounter Care Teams Jury Consultant Relationship Specialty Start Date End Date Ana Lofton MD [address] [place] [address] PCP - General Family Medicine 01/18/21 Marisela Merigold 10/26/24 documented as of this encounter
--- OUTSIDE RECORDS SUMMARY | 2025-01-28 17:42 | XMS_ITS | Clinical Summary ---
Author Organization [facility] Address [address] [place] [address] Care Team Providers Care Liability Analyst Name Role Phone Unavailable Primary Care Provider Unavailabl e Allergies No known active allergies Medications Medication Sig Dispensed Refills Start Date End Date Status gabapentin (NEURONTIN) 400 MG capsule Take 400 mg by mouth 3 (three) times a day. 0 Active atorvastatin (LIPITOR) tablet 80 mg Take 80 mg by mouth daily. 0 Active metFORMIN (GLUCOPHAGE) tablet 500 mg Take 500 mg by mouth 2 (two) times a day with meals. 0 Active chlorthalidone (HYGROTON) 25 MG tablet Take 25 mg by mouth daily. 0 Active carvedilol (COREG) 12.5 MG tablet Take 12.5 mg by mouth 2 (two) times a day with meals. 0 Active isosorbide mononitrate (IMDUR) 60 MG 24 hr tablet Take 60 mg by mouth daily. 0 Active montelukast (SINGULAIR) 10 MG tablet Take 10 mg by mouth every night at bedtime. 0 Active lisinopril (PRINIVIL,ZESTRIL) tablet 20 mg Take 20 mg by mouth daily. 0 Active traZODone (DESYREL) 25 MG split tabletIndications:P RN Take 50 mg by mouth every night at bedtime. 0 Active furosemide (LASIX) 40 MG tablet Take 40 mg by mouth 2 (two) times a day. 0 Active nitroglycerin (NITRODUR) 0.4 MG/HR Place 1 patch onto the skin continuous prn. 0 Active loratadine (Claritin) 10 MG tablet Take 10 mg by mouth daily. 0 Active Coenzyme Q10 (CO Q10) 100 MG CAPS Take by mouth 2 (two) times a day. 0 Active Zinc 50 MG CAPS Take by mouth daily. 0 Active Cholecalciferol (VITAMIN D3) 10 MCG (400 UNIT) CHEW Chew by mouth. 0 Activ e vitamin B-12 (CYANOCOBALAMIN) tablet 1000 mcg Take 1,000 mcg by mouth daily. 0 Active Multiple Vitamin (MULTIVITAMIN ADULT PO) Take by mouth. 0 Active albuterol (PROVENTIL HFA;VENTOLIN HFA) 108 (90 Base) MCG/ACT inhaler INHALE 2 PUFFS INTO THE LUNGS EVERY 4 HOURS NEEDED FOR SHORTNESS OF BREATH OR WHEEZING 0 12/20/2019 Active aspirin EC 81 MG EC tablet Take 1 tablet (81 mg total) by mouth 2 (two) times a day. 6 tablet 0 02/23/2021 Active acetaminophen (TYLENOL) 325 MG tablet Take 2 tablets (650 mg total) by mouth every 6 (six) hours as needed (for any level of discomfort). 80 tablet 0 02/23/2021 Active docusate sodium 100 MG CAPS Take 100 mg by mouth 2 (two) times a day. 10 capsule 0 02/23/2021 Active methocarbamol (ROBAXIN) 750 MG tablet Take 1 tablet (750 mg total) by mouth every 6 (six) hours as needed. 45 tablet 0 02/23/2021 Active oxyCODONE (ROXICODONE) 5 MG immediate release tablet Take 1 tablet (5 mg total) by mouth every 4 (four) hours as needed. 30 tablet 0 02/23/2021 Active Active Problems Problem Noted Date Diagnosed Date Back pain 02/21/2021 Social History Tobacco Use Types Packs/Day Years Used Date Smoking Tobacco: Former Cigarettes 15 Q uit: 1988 Smokeless Tobacco: Never Alcohol Use Standard Drinks/Week Comments Yes 0 (1 standard drink = 0.6 oz pur e alcohol) rare Sex and Gender Information Value Date Recorded Sex Assigned at Unknown 02/08/2021 2:42 PM EDT Gender Identity Not on file Sexual Orientation Not on file Last Filed Vital Signs Vital Sign Reading Time Taken Comments Blood Pressure 112/75 02/24/2021 2:25 PM EDT Pulse 63 02/24/2021 2:25 PM EDT Temperature 37.3 ??C (99.1 ??F) 02/24/2021 2:25 PM ED T Respiratory Rate 16 02/24/2021 2:25 PM EDT Oxygen Saturation 98% 02/24/2021 2:25 PM EDT Inhaled Oxygen Concentration - - Weight 131.1 kg (289 lb) 02/21/2021 9:16 AM EDT Height 190.5 cm (6' 3 ) 02/21/2021 9:16 AM EDT Body Mass Index 36.12 02/21/2021 9:16 AM EDT Plan of Treatment Health Maintenance Due Date Last Done Comments Hepatitis C Screening 1948 Depression Screening 1960 BMI Counseling 1966 Preventative Health Evaluation 1966 Fall Risk Assessment 2013 Osteoporosis Screening (DEXA Scan) 2013 Pneumococcal Vaccine (2 of 2 - PCV) 07/14/2021 07/14/2020, 08/16/2015 RSV Adult > 60+ Yrs or (1 - 1-dose 75+ series) 2023 COVID-19 Vaccine ( - season) 2024 01/22/2021, 12/25/2020 Influenza Vaccine (#1) 2024 0, 10/01/2019, 08/30/2018, Additional history exists DTap / Tdap / Td (2 - Td or Tdap) 08/17/2030 08/17/2020 Shingrix-Zoster Vaccine Completed 08/17/2020, 07/14 Hepatitis B Vaccines Aged Out No long er eligible based on patient's age to complete this topic RSV Ped < 20 months Aged Out No longe r eligible based on patient's age to complete this topic Advance Directives For more information, please contact: [phone] Documents on File Type Date Recorded Patient Orange Picking Supervisor Expl anation Advance Directive and Living Will 02/21/2021 Latest Code Status on File Code Status Date Activated Date Inactivated Comments Full Code 02/21/2021 3:19 PM 02/24/2021 11:01 PM This code status was ascertained in the following way: discussion with patient .
== END 2025-01-28 16:21 | disposition home or self-care (01) ==
LOC: HO.HPS 15:53
PROVIDERS: PCP General Practice; Visit Provider Internal Medicine
DX: J44.9 Chronic obstructive pulmonary disease, unspecified (principal); G47.33 Obstructive sleep apnea (adult) (pediatric); J84.9 Interstitial pulmonary disease, unspecified
CPT/HCPCS: 99213

== ENCOUNTER → 2025-01-28 15:53 | Outpatient (BNVA) | payer MEDICARE, SELFPAY | PROVIDERS: PCP General Practice; Visit Provider Internal Medicine | DX: J44.9 Chronic obstructive pulmonary disease, unspecified (principal); J84.9 Interstitial pulmonary disease, unspecified; G47.33 Obstructive sleep apnea (adult) (pediatric); Z99.89 Dependence on other enabling machines and devices; Z87.891 Personal history of nicotine dependence | CPT/HCPCS: 99212 ==

== ENCOUNTER 2025-07-30 15:24 | Outpatient (AMB) | payer MEDICARE, SELFPAY ==
[2025-07-30 15:46] VITALS: BP 110/60; PULSE 63; O2SAT 96; BMI 37.6
--- NOTE | 2025-07-30 15:46 | A.OFFVIS_ITS ---
Vital Signs 07/30/25 15:46 Height 6 ft 3 in Weight 300 lb 14.896 oz BMI 37.6 BP 110/60 Blood Pressure Location Lt brachial Position Sitting Pulse 63 Pulse Source Pulse Oximeter Pulse Oximetry (%) 96 Oxygen Delivery Method Room Air Intake Visit Reasons: HACKETT Intake Note: pt is here for follow up and states the breathing is not getting any better but not worse, cannot go up stairs fast. Tamale Machine Feeder Required: No Allergies No Known Allergies Allergy (Verified 07/30/25 16:03) Medication List - Last Reconciled 07/30/25 by Maria Elena Del Rio MD albuterol sulfate 90 mcg/actuation 2 puffs PO Q4-6H PRN aspirin 81 mg PO DAILY atorvastatin 80 mg PO DAILY carvedilol 12.5 mg PO BID chlorthalidone 25 mg PO DAILY cholecalciferol (vitamin D3) (Vitamin D3) 50 mcg PO DAILY clopidogrel 75 mg PO DAILY coQ10 (ubiquinol) 100 mg PO BID cyanocobalamin (vitamin B-12) (Vitamin B-12) 500 mcg PO DAILY furosemide 40 mg PO DAILY gabapentin 400 mg PO TID lisinopril 20 mg PO DAILY loratadine (Claritin) 10 mg PO DAILY memantine ER (Namenda XR) PO PER PKG DIR metformin 500 mg PO BID montelukast 10 mg PO QPM multivitamin 1 tab PO DAILY nitroglycerin 0.4 mg sublingual DIRECTED PRN pyridoxine (vitamin B6) (Vitamin B-6) 100 mg PO DAILY zinc acetate 50 mg PO DAILY Do you need a note to return to daycare/school/sports/work: No HPI HPI HACKETT: Details: THIS 74 YEARS OLD GENTLEMAN WHO IS GROSSLY OBESE AND HAS DIAGNOSIS OF OBSTRUCTIVE SLEEP APNEA FOR MANY YEARS. HAS BEEN A REGULAR USER OF CPAP AND SAY IS THAT HE ACTUALLY CAN NOT GO TO SLEEP WITHOUT WEARING THE MASK. THE DEVICE IS OLD AND DOES NOT TRANSMIT THE DATA ONLINE. HE HAS CONTINUES TO HAVE MILD SHORTNESS OF BREATH ON EXERTION ESPECIALLY GOING UP STAIRS. HOWEVER HE STAYS IN THE HOUSE WELL AND WALKS SOMEWHAT SLOW. DENIES COUGH OR WHEEZING. HE USES ALBUTEROL HFA ONLY ONCE IN A WHILE. HE STILL CONTINUES TO USE MONTELUKAST 10 MG ONCE A DAY HE HAS DEVELOPED INCREASING AMOUNT OF DEMENTIA , AND CURRENTLY ON MEMANTINE ( NAMENDA XR ) HE STAYS HOME AND RELATIVELY INACTIVE HE HAS PUT ON A FEW MORE. LB OF WEIGHT PFSH Medical History COPD (chronic obstructive pulmonary disease) DIVYA (obstructive sleep apnea) Obesity (BMI 30-39.9) Interstitial lung disease Shortness of breath on exertion Post covid-19 condition, unspecified Depression Hx of spinal stenosis Personal history of COVID-19 Skin cancer Arthritis Type 2 diabetes mellitus Pulmonary embolism Seasonal allergies Sleep apnea CAD (coronary artery disease) Surgical History Hx of cardiac catheterization Hx of heart artery stent H/O colonoscopy Hx of heart bypass surgery History of back surgery Hx of tonsillectomy Social History Household Members: Family and Children Are you a primary neonatal intensive care unit nurse to a significant other at home: No Do you presently have visiting nurse or other home services: No Alcohol intake: former Patient Tobacco Use Status: Former Tobacco user Tobacco use type: Cigarette Substance Use Type: Marijuana Review of Systems Const All systems reviewed & are unremarkable except as noted in HPI and below Eyes Reports no additional complaints ENT Reports nasal congestion (MILD INTERMITTENT) Card Reports leg edema and Reports dyspnea on exertion Resp Reports as per HPI and Reports dyspnea on exertion GI Reports no additional complaints Reports no additional complaints Musc Reports other (nonspecific muscular weakness) Skin/Breast Reports system reviewed and no additional complaints, except as documented Neuro Reports memory loss (Mild) Psych Denies anxiety, Denies depression and Reports memory loss (Mild) Endo Reports no additional complaints Jose Daniel/Lymph Reports no additional complaints Physical Exam Vital Signs: Last Vital Signs Pulse 63 07/30/25 15:46 BP 110/60 07/30/25 15:46 Pulse Ox 96 07/30/25 15:46 Oxygen Delivery Method Room Air 07/30/25 15:46 BMI result Body Mass Index 37.6 Const General: comfortable, no acute distress, alert and awake Orientation/consciousness: patient oriented x3 HEENT Head: Yes normal to inspection General nose exam: No nasal polyps present and No nasal discharge present Face and sinus: Yes sinuses nontender Mouth: oropharynx normal Throat: Yes posterior oropharynx normal Eyes General: appearance normal, both eyes and all related structures Neck Neck: Yes normal visual inspection, Yes no lymphadenopathy, Yes trachea midline and Yes no JVD Thyroid: Thyroid normal Chest Chest palpation & inspection: abnormal inspection of the chest (Midline scar from previous CABG surgery), normal palpation of entire chest wall and no tenderness Resp Other: Percussion note is resonant, breath sounds are equal on both sides. No crepitations or wheezes are heard. Cardio Palpation: normal PMI Rate: regular rate Rhythm: regular rhythm Heart sounds: no gallops and no murmurs GI Palpation (GI): Soft to palpation, nontender, No hepatosplenomegaly present and no masses Auscultation: normal bowel sounds Back/Spine/Pelvis Thoracic/Lumbar Spine: thoracic and lumbar spine normal to inspection and thoraco-lumbar ROM limited Skin General skin exam: no rashes or lesions noted Neuro General: patient oriented x3 and no focal motor deficits Cranial nerves: Yes CN's II-XII intact bilaterally Extrem General: Yes normal to inspection, Yes no calf tenderness and Yes venous stasis dermatitis (Mild chronic stasis dermatitis of both legs) Psych Appearance: grossly normal and well kempt Speech and movement: Normal speech and movement present Assessment & Plan Assessment & Plan (1) Interstitial lung disease: Comment: PER CT SCAN HE HAS VERY MILD/EARLY INTERSTITIAL LUNG DISEASE IN THE BASILAR AREAS . I DO NOT THINK IT IS PROGRESSING ANYMORE. Code(s): J84.9 - Interstitial pulmonary disease, unspecified Category: Medical Plan: EXPLAINED THAT HIS SHORTNESS OF BREATH ON EXERTION IS PARTLY DUE TO THIS MILD INTERSTITIAL LUNG DISEASE, BUT THERE IS NO NEED TO USE ANY MEDICATION FOR IT . (2) DIVYA (obstructive sleep apnea): Comment: PATIENT HAS LONG-STANDING HISTORY OF OBSTRUCTIVE SLEEP APNEA AND USES CPAP REGULARLY. IN FACT WITHOUT THE CPAP HE CANNOT SLEEP GOOD ANYWAY. Discussed about if he needs a replacement are new CPAP device. In that case he may need a repeat sleep study. He says is that he is comfortable with his current machine, and would let us know if it gives any trouble. Code(s): G47.33 - Obstructive sleep apnea (adult) (pediatric) Category: Medical Plan: ADVISED TO KEEP ON USING CPAP EVERY NIGHT (3) COPD (chronic obstructive pulmonary disease): Comment: PULMONARY FUNCTION TEST DOES INDICATE MILD TO MODERATE DEGREE OF OBSTRUCTIVE AIRWAY DISORDER HOWEVER THERE WAS NO RESPONSE TO BRONCHODILATOR THERAPY Code(s): J44.9 - Chronic obstructive pulmonary disease, unspecified Category: Medical Plan: HE HAS ALBUTEROL HFA ON HAND AND USES IT ONLY P.R.N.. (4) Shortness of breath on exertion: Comment: DYSPNEA ON EXERTION, IS DUE TO COMBINATION OF OBESITY, RESTRICTIVE LUNG DISORDER, AND OBSTRUCTIVE AIRWAY DISORDER WELL DECONDITIONING, I MADE HIM WALK WITH ME IN THE HALLWAY FOR 4 MINUTES, HE DID HAVE MILD TO MODERATE SHORTNESS OF BREATH BUT THERE WAS NO DROP IN O2 SAT . HE DOES NOT WALK MUCH HE IS NOT BEING BOTHERED BY DYSPNEA ON EXERTION. Code(s): R06.02 - Shortness of breath Category: Medical Plan: ADVISED TO KEEP THE WEIGHT DOWN, MUCH HE CAN. KEEP ON DOING DEEP BREATHING EXERCISES 2 TO 3 TIMES A DAY. CONTINUE TO WALK BUT ADJUST THE GAIT ACCORDING TO HIS TOLERANCE. (5) Obesity (BMI 30-39.9): Comment: HE IS MODERATELY OBESE, TRYING TO DECREASE HIS CALORIES INTAKE. NOT ABLE TO DO MUCH EXERCISE. Code(s): E66.9 - Obesity, unspecified Category: Medical Plan: THIS VERY HARD FOR HIM TO LOSE WEIGHT AND I THINK WE WILL JUST CONTINUE TO WATCH IT. Coding Level of Care Code Est Pt Level 3 (22739) Diagnoses Interstitial lung disease J84.9 DIVYA (obstructive sleep apnea) G47.33 COPD (chronic obstructive pulmonary disease) J44.9 Shortness of breath on exertion R06.02 Obesity (BMI 30-39.9) E66.9
--- OUTSIDE RECORDS SUMMARY | 2025-07-30 16:50 | XMS_ITS | Encounter Summary ---
Author Organization [facility] Address [address] [place] [address] Care Team Providers Care Eradicator Name Role Phone Stan Villatoro MD Primary Care Provider [phone] Encounter Details Date Type Department Care Team (Late st Contact Info) Description 10/21/[address] [facility] [address] [place] [address] Stan Villatoro MD [address] [place], [place] [id number] Chronic obstructive pulmonary disease, unspecified (CMS/HCC V24, CMS/HCC V28) Social History Tobacco Use Types Packs/Day Years [...] LAB CHEMISTRY METHOD 10/21/2024 1:41 PM EST [facility] Potassium 4.7 3.5 - 5.5 mmol/L LAB CHEMISTRY METHOD 10/21/2024 1:41 PM [facility] Chloride 105 96 - 110 mmol/L LAB CHEMISTRY METHOD 10/21/2024 1:41 PM [facility] CO2 27 21 - 32 mmol/L LAB CHEMISTRY METHOD 10/21/2024 1:41 PM [facility] Anion Gap 6 3 - 11 LAB CHEMISTRY METHOD 10/21/2024 1:41 PM [facility] Glucose 79 70 - 100 mg/dL LAB CHEMISTRY METHOD 10/21/2024 1:41 PM [facility] BUN 21 5 - 25 mg/dL LAB CHEMISTRY METHOD 10/21/2024 1:41 PM [facility] Creatinine 1.33(H) 0.70 - 1.30 mg/dL LAB CHEMISTRY METHOD 10/21/2024 1:41 PM [facility] eGFR 56(L) >=60 mL/min/1. 73m2 LAB CHEMISTRY METHOD 10/21/2024 1:41 PM [facility] Comment:Calculation based on the Chronic Kidney Disease Epidemiology Collaboration (CKD-EPI) equation refit without adjustment for race. BUN/Creatinine Ratio 15.8 LAB CHEMISTRY METHOD 10/21/2024 1:41 PM [facility] Calcium 9.1 8.5 - 10.5 mg/dL LAB CHEMISTRY METHOD 10/21/2024 1:41 PM [facility] Blood Venous blood specimen / Unknown Venipuncture / Unknown 10/21/2024 7:36 AM EST 10/21/2024 11:13 AM EST us Stan Villatoro MD LAB BLOOD ORDERABLES Final Resul t [facility] [address] [place] [address], [place] [phone] documented in this encounter Visit Diagnoses Diagnosis Chronic obstructive pulmonary disease, unspecified (CMS/HCC V24, CMS/HCC V28) documented in this encounter Care Teams Eradicator Relationship Specialty Start Date End Date Stan Villatoro MD [address] [place] [address] [address] [place] [address] PCP - General Geriatric Medicine 10/15/24 documented as of this encounter
--- OUTSIDE RECORDS SUMMARY | 2025-07-30 16:50 | XMS_ITS | Encounter Summary ---
Author Organization [facility] Address [address] [place] [id number] Care Team Providers Care Fan Blade Aligner Name Role Phone Ana Lofton MD Primary Care Provider + Encounter Details Date Type Department Care Team ([facility] st Contact Info) Description 03/15/2021 Erroneous Encounter [facility] CONVERSION DEPT [address] [place] [id number] ProviderAdore MD Social History Tobacco Use Types Packs/Day Years Used Date Smoking Tobacco: Never Assessed Sex and Gender Information Value Date Recorded Sex Assigned at Not on file Legal Sex Male 3:22 PM EDT Gender Identity Not on file Sexual Orientation Not on file documented as of this encounter Plan of Treatment Not on file documented as of this encounter Visit Diagnoses Not on filedocumented in this encounter Care Teams Fan Blade Aligner Relationship Specialty Start Date End Date Ana Lofton MD [address] [place] [address] PCP - General 03/22/21 documented as of this encounter
--- OUTSIDE RECORDS SUMMARY | 2025-07-30 16:50 | XMS_ITS | Clinical Summary ---
Author Organization [facility] Address [address] [place] [address] Care Team Providers Care Traveling Freight Agent Name Role Phone Ana Lofton MD Primary Care Provider + Allergies No known active allergies Medications acetaminophen (TYLENOL) 325 MG tablet Take 650 mg by mouth 4 times daily (every 6 hours) as needed. 1 Active aspirin enteric coated (aspirin enteric coated) 81 MG EC tablet Take 81 mg by mouth daily. 1 Active atorvastatin (LIPITOR) 80 MG tablet Take 80 mg by mouth daily. 0 Active carvedilol (COREG) 12.5 MG tablet Take 12.5 mg by mouth 2 (two) times a day with meals. 0 Active chlorthalidone (HYGROTON) 25 MG tablet Take 25 mg by mouth daily. 0 Active Vitamin D3 (CHOLECALCIFEROL ) 10 MCG (400 UNIT) Chew Tab Chew 10 mcg daily. Active clopidogrel (PLAVIX) 75 MG tablet Take 75 mg by mouth daily. 0 Active coenzyme Q10 (CO Q 10) 100 [...] 60 mg by mouth daily. 0 Active lisinopril (PRINIVIL,ZeSTRI L) 20 MG tablet Take 20 mg by mouth daily. 0 Active loratadine (CLARITIN) 10 MG tablet Take 10 mg by mouth daily as needed. Active metFORMIN (GLUCOPHAGE) 500 MG tablet Take 500 mg by mouth 2 (two) times a day with meals. 0 Active methocarbamol (ROBAXIN) 750 MG tablet Take 750 mg by mouth 4 times daily (every 6 hours) as needed. 1 Active montelukast (SINGULAIR) 10 MG tablet Take 10 mg by mouth nightly. 0 Active oxyCODONE (ROXICODONE) 5 MG immediate release tablet Take 5 mg by mouth every 4 (four) hours as needed. 1 Active traZODone (DESYREL) 50 MG tablet Take 50 mg by mouth nightly as needed. 0 Active Zinc Methionate 50 MG Cap Take 50 mg by mouth daily. Active colchicine (COLCRYS) 0.6 mg tabletIndication s:Postoperative infection, unspecified type, initial encounter Take 1 tablet (0.6 mg total) by mouth 2 (two) times a day. 60 tablet 1 Active Lactobacillus acidophilus capsuleIndicatio ns:Postoperative infection, unspecified type, initial encounter Take 2 capsules by mouth 2 (two) times a day. 120 capsule 1 Active minocycline (MINOCIN) 100 MG capsuleIndicatio ns:Postoperative infection, unspecified type, initial encounter Take 1 capsule (100 mg total) by mouth 2 (two) times a day. 42 capsule 1 Active loperamide (IMODIUM A-D) 2 MG capsuleIndicatio ns:Postoperative infection, unspecified type, initial encounter Take 1 capsule (2 mg total) by mouth 4 times daily (every 6 hours) as needed for diarrhea. 30 capsule 1 1 Active Active Problems Problem Noted Date Diagnosed Date Post-operative infection 03/22/2021 Postoperative infection 03/22/2021 Overview (03/22/2021): Added automatically from request for surgery [id number] Social History Tobacco Use Types Packs/Day Years [...] 69 03/31/2021 1:26 PM EDT Temperature 36.8 C (98.3 F) 03/31/2021 1:26 PM EDT Respiratory Rate 16 03/31/2021 1:26 PM EDT Oxygen Saturation 98% 03/31/2021 1:26 PM EDT Inhaled Oxygen Concentration - - Weight 144 kg (318 lb) 03/29/2021 6:36 AM EDT Height 190.5 cm (6' 3 ) 03/24/2021 3:01 PM EDT Body Mass Index 39.75 03/24/2021 3:01 PM EDT Plan of Treatment Health Maintenance Due Date Last Done Comments Advance Care Planning 1950 Hepatitis C Virus Screening 1950 DTaP/Tdap/Td Vaccines (1 - Tdap) 1967 Pneumococcal Vaccines 50+ (1 of 1 - PCV) 1998 Zoster (Shingles) Vaccine (1 of 2) 1998 RSV Vaccine 60 years and older and Patients (1 - 1-dose 75+ series) 2023 Influenza Vaccine 06/12/2025 09/12/2021, 07/16/2020 COVID-19 Vaccine ( season) 2025 01/22/2021, 12/25/2020 Hemoglobin A1C Discontinued 03/29/2021, 07/14/2020 [...] 5.5 <5.7 % [facility]OS[facility] Comment: A1c% Interpretation 5.7 - 6.0 Increase risk of diabetes 6.1 - 6.4 Higher risk of diabetes > or = 6.5 Consistent with diabetes Diabetes Care, 33(Supp 1):S1-S61, 2010 Estimated Average Glucose 111 mg/dL [facility] Blood specimen (specimen) Blood specimen / Unknown 03/29/2021 3:10 PM EDT 03/29/2021 3:55 PM EDT us Margot SORIANO LAB BLOOD ORDERABLES Final Res ult HOSPITAL LAB from Last 3 Months or Most Recently Relevant to Health [place] [phone] [employer] [place] [phone] Advance Directives * Full Code (Latest Code Status on File) Date Activated Date Inactivated Comments 03/25/2021 8:02 PM * Full Code Date Activated Date Inactivated Comments 03/22/2021 4:05 PM 03/25/2021 8:02 PM Healthcare Agents on File Name Relationship Healthcare Agent Relationshi p Communication Gio Munoz Adult child 4. Next of Kin ( Spouse, Adult Child, Parent, Adult Sibling, Grandparent) Care Teams Traveling Freight Agent Relationship Specialty Start Date End Date Ana Lofton MD [address] [place] [id number] PCP - General 03/22/21
--- OUTSIDE RECORDS SUMMARY | 2025-07-30 16:50 | XMS_ITS ---
Author Name [facility] Organization Unknown History of Medication Use Medication Directions Dispensed Refills Start Date End Date Stat Lactobacillus acidophilus capsule Take 2 capsules by mouth 2 (two) times a day. 03/31/2021 active minocycline (MINOCIN) 100 MG capsule Take 1 capsule (100 mg total) by mouth 2 (two) times a day. 03/31/2021 active oxyCODONE (ROXICODONE) 5 MG immediate release tablet Take 5 mg by mouth every 4 (four) hours as needed. 02/23/2021 active lisinopril (PRINIVIL,ZeSTRIL) 20 MG tablet Take 20 mg by mouth daily. 09/18/2020 active clopidogrel (PLAVIX) 75 MG tablet Take 75 mg by mouth daily. 08/18/2020 active isosorbide mononitrate (IMDUR) 60 MG 24 hr tablet Take 60 mg by mouth daily. 08/18/2020 active traZODone (DESYREL) 50 MG tablet Take 50 mg by mouth nightly as needed. 07/22/2020 active montelukast (SINGULAIR) 10 MG tablet Take 10 mg by mouth nightly. 05/26/2020 active gabapentin (NEURONTIN) 400 MG capsule Take 400 mg by mouth 3 (three) times a day. active Problems Problem Status Onset Date Problem Type Date of Resolution Source Mixed hyperlipidemia active EncounterDiagnosisA ct [facility] Post-operative infection active 2021-03-22 ProblemAct HHCCT Care Team Organization Name Specialty Phone Email Start Date End Da te [facility] Primary Care
--- OUTSIDE RECORDS SUMMARY | 2025-07-30 16:50 | XMS_ITS | Encounter Summary ---
Author Organization [facility] Address [address] [place] [address] Care Team Providers Care Oil Driller Name Role Phone Ana Lofton MD Primary Care Provider + Encounter Details Date Type Department Care Team ([facility] st Contact Info) Description 04/14/2021 Erroneous Encounter [facility] CONVERSION DEPT [address] [place] [phone] ProviderAdore MD Social History Tobacco Use Types [...] on filedocumented in this encounter Care Teams Oil Driller Relationship Specialty Start Date End Date Ana Lofton MD [address] [place] [address] PCP - General 03/22/21 documented as of this encounter
--- OUTSIDE RECORDS SUMMARY | 2025-07-30 16:50 | XMS_ITS | Encounter Summary ---
Author Organization [facility] Address [address] [place] [address] Care Team Providers Care Professor Of Geology Name Role Phone Stan Villatoro MD Primary Care Provider [phone] Encounter Details Date Type Department Care Team (Late st Contact Info) Description 10/15/2024 Lab Requisition [facility] - Main Lab [address] [facility] [place] [address] Stan Villatoro MD [address] [place], [place] [id number] Acute myocardial infarction, unspecified (CMS/HCC V24, CMS/HCC V28); Atherosclerosis of coronary artery bypass graft(s) without [...] LAB CHEMISTRY METHOD 10/15/2024 12:27 PM EST [facility] Blood Venous blood specimen / Unknown Venipuncture / Unknown 10/15/2024 7:16 AM EST 10/15/2024 9:51 AM EST us Stan Villatoro MD LAB BLOOD ORDERABLES Final Resul t [facility] [address] [place] [address], * Folate (10/15/2024 7:16 AM EST) Folate 9.1 2.8 - 17.0 ng/ml LAB CHEMISTRY METHOD 10/15/2024 11:50 AM EST [facility] Blood Venous blood specimen / Unknown Venipuncture / Unknown 10/15/2024 7:16 AM EST 10/15/2024 9:51 AM EST us Stan Villatoro MD LAB BLOOD ORDERABLES Final Resul t Performing Organization Address City/[facility]/ZIP Co de Phone Number [facility] [address] [place] [address], [place] [phone] * Vitamin B12 (10/15/2024 7:16 AM EST) [facility] Vitamin B-12 804 250 - 900 pcg/mL LAB CHEMISTRY METHOD 10/15/2024 11:50 AM EST [facility] Blood Venous blood specimen / Unknown Venipuncture / Unknown 10/15/2024 7:16 AM EST 10/15/2024 9:51 AM EST us Stan Villatoro MD LAB BLOOD ORDERABLES Final Resul t Performing Organization Address [facility] de Phone Number [facility] [address] [place] [address], [place] [phone] * Hemoglobin A1c (10/15/2024 7:16 AM EST) [facility] Hemoglobin A1C 5.2 <6.5 % LAB CHEMISTRY METHOD 10/15/2024 2:24 PM EST [facility] Mean Bld Glu Estim. 103 mg/dL LAB CHEMISTRY METHOD 10/15/2024 2:24 PM EST [facility] Blood Venous blood specimen / Unknown Venipuncture / Unknown 10/15/2024 7:16 AM EST 10/15/2024 9:51 AM EST us Stan Villatoro MD LAB BLOOD ORDERABLES Final Resul t Performing Organization Address [facility] Co de Phone Number [facility] [address] [place] [address], [place] [phone] * (ABNORMAL) Comprehensive metabolic panel (10/15/2024 7:16 AM EST) Sodium 138 133 - 145 mmol/L LAB CHEMISTRY METHOD 10/15/2024 11:[address] [facility] Potassium 4.6 3.5 - 5.5 mmol/L LAB CHEMISTRY METHOD 10/15/2024 11:[address] [facility] Comment:Hemolysis present Chloride 101 96 - 110 mmol/L LAB CHEMISTRY METHOD 10/15/2024 11:[address] [facility] CO2 28 21 - 32 mmol/L LAB CHEMISTRY METHOD 10/15/2024 11:[address] [facility] Anion Gap 9 3 - 11 LAB CHEMISTRY METHOD 10/15/2024 11:[address] [facility] Glucose 81 70 - 100 mg/dL LAB CHEMISTRY METHOD 10/15/2024 11:[address] [facility] BUN 25 5 - 25 mg/dL LAB CHEMISTRY METHOD 10/15/2024 11:[address] [facility] Creatinine 1.13 0.70 - 1.30 mg/dL LAB CHEMISTRY METHOD 10/15/2024 11:[address] [facility] eGFR 68 >=60 mL/min/1. 73m2 LAB CHEMISTRY METHOD 10/15/2024 11:[address] [facility] Comment:Calculation based on the Chronic Kidney Disease Epidemiology Collaboration (CKD-EPI) equation refit without adjustment for race. BUN/Creatinine Ratio 22.1 LAB CHEMISTRY METHOD 10/15/2024 11:[address] [facility] Calcium 9.1 8.5 - 10.5 mg/dL LAB CHEMISTRY METHOD 10/15/2024 11:[address] [facility] AST (SGOT) 44(H) 10 - 42 unit/L LAB CHEMISTRY METHOD 10/15/2024 11:[address] [facility] Comment:Hemolysis present ALT (SGPT) 55 10 - 60 unit/L LAB CHEMISTRY METHOD 10/15/2024 11:[address] [facility] Alkaline Phosphatase 97 42 - 121 unit/L LAB CHEMISTRY METHOD 10/15/2024 11:[address] [facility] Total Protein 6.8 6.0 - 8.0 g/dL LAB CHEMISTRY METHOD 10/15/2024 11:[address] [facility] Albumin 3.6 3.2 - 5.0 g/dL LAB CHEMISTRY METHOD 10/15/2024 11:[address] [facility] Total Bilirubin 0.8 0.0 - 1.4 mg/dL LAB CHEMISTRY METHOD 10/15/2024 11:[address] [facility] Blood Venous blood specimen / Unknown Venipuncture / Unknown 10/15/2024 7:16 AM EST 10/15/2024 9:51 AM EST us Stan Villatoro MD LAB BLOOD ORDERABLES Final Resul t [facility] [address] [place] [address], [place] [phone] * Complete blood count (10/15/2024 7:16 AM EST) WBC 7.3 4.8 - 10.8 K/mcL LAB HEMETOLOGY METHOD 10/15/2024 10:[address] [facility] RBC 5.10 4.50 - 5.50 M/mcL LAB HEMETOLOGY METHOD 10/15/2024 10:[address] [facility] Hemoglobin 15.6 13.5 - 17.5 g/dL LAB HEMETOLOGY METHOD 10/15/2024 10:[address] [facility] Hematocrit 48.3 42.0 - 54.0 % LAB HEMETOLOGY METHOD 10/15/2024 10:[address] [facility] MCV 95.3 79.0 - 98.0 FL LAB HEMETOLOGY METHOD 10/15/2024 10:[address] [facility] MCH 30.8 27.0 - 32.0 pcg LAB HEMETOLOGY METHOD 10/15/2024 10:[address] [facility] MCHC 32.3 32.0 - 37.0 g/dL LAB HEMETOLOGY METHOD 10/15/2024 10:[address] [facility] RDW 13.5 11.0 - 15.0 % LAB HEMETOLOGY METHOD 10/15/2024 10:[address] [facility] Platelets 228 130 - 400 K/mcL LAB HEMETOLOGY METHOD 10/15/2024 10:[address] [facility] MPV 9.6 7.0 - 11.0 FL LAB HEMETOLOGY METHOD 10/15/2024 10:[address] [facility] NRBC 0.0 <1.0 % LAB HEMETOLOGY METHOD 10/15/2024 10:[address] [facility] NRBC Absolute 0.00 <0.10 K/mcL LAB HEMETOLOGY METHOD 10/15/2024 10:[address] [facility] Blood Venous blood specimen / Unknown Venipuncture / Unknown 10/15/2024 7:16 AM EST 10/15/2024 9:51 AM EST us Stan Villatoro MD LAB BLOOD ORDERABLES Final Resul t [facility] [address] [place] [address], documented in this encounter Visit Diagnoses Diagnosis Acute myocardial infarction, unspecified (CMS/HCC V24, CMS/HCC V28) Atherosclerosis of coronary artery bypass graft(s) without angina pectoris documented in this encounter Care Teams Professor Of Geology Relationship Specialty Start Date End Date Stan Villatoro MD [address] [place] [address] [address] [place] [address] PCP - General Geriatric Medicine 10/15/24 documented as of this encounter
--- OUTSIDE RECORDS SUMMARY | 2025-07-30 16:50 | XMS_ITS | Clinical Summary ---
Author Organization [facility] Address [address] [place] [address] Care Team Providers Care Supervisor Vat House Name Role Phone Unavailable Primary Care Provider Unavailabl e Source Comments PLEASE NOTE, if this patient is a minor, it may be UNLAWFUL to discuss sensitive information that is contained in these records (such as FAMILY PLANNING, MENTAL HEALTH or SUBSTANCE ABUSE) with the minor patient's parent or other person without the patient's specific authorization.[facility] Allergies No known active allergies Medications btgzdmdo-mjy-KX-l ycopen-lutein (MEN 50 PLUS MULTIVITAMIN) 300-600-300 mcg tabIndications:Mi xed dyslipidemia Take 1 Tab by mouth once daily 30 Tab 11 0 Active fluticasone propion-salmetero L (ADVAIR) 250-50 mcg/dose diskus inhalerIndication s:Chronic obstructive pulmonary disease, unspecified COPD type ([facility]) Inhale 1 Puff into the lungs 2 (two) times daily 60 Each 3 0 Active cyclobenzaprine (FLEXERIL) 10 mg tabletIndications :Chronic low back pain, unspecified back pain laterality, unspecified whether sciatica present Take 1 Tab by mouth every 8 (eight) hours 90 Tab 2 0 Active nitroglycerin (NITROSTAT) 0.4 mg SL tabletIndications :Mixed dyslipidemia,Hear t failure, unspecified HF chronicity, unspecified heart failure type ([facility]),History of heart bypass surgery,S/P coronary artery stent placement Place 1 Tab under the tongue every 5 (five) minutes as needed for chest pain 25 Tab 1 0 Active fluticasone propionate (FLONASE) 50 mcg/actuation nasal sprayIndications: Seasonal allergies Place 1 Dougherty in both nostrils once daily 16 g 11 0 Active loratadine (CLARITIN) 10 mg tabletIndications :Seasonal allergies Take 1 Tab by mouth once daily as needed for allergies 30 Tab 11 0 Active omega 1-xpw-ijw-fish oil 1,000 mg (120 mg-180 mg) capsuleIndication s:Mixed dyslipidemia Take 1 Cap by mouth 3 (three) times daily 30 Cap 11 0 Active albuterol sulfate 90 mcg/actuation inhalerIndication s:Chronic obstructive pulmonary disease, unspecified COPD type ([facility]) INHALE 2 PUFFS INTO THE LUNGS EVERY 4 HOURS NEEDED FOR SHORTNESS OF BREATH OR WHEEZING 90 g 1 0 Active acetaminophen (TYLENOL) 500 mg tabletIndications :Herpes zoster without complication Take 2 Tabs by mouth every 6 (six) hours as needed for pain 40 Tab 0 Active montelukast (SINGULAIR) 10 mg tabletIndications :Chronic obstructive pulmonary disease, unspecified COPD type ([facility]) TAKE 1 TABLET BY MOUTH EVERY NIGHT [...] unspecified HF chronicity, unspecified heart failure type ([facility]),History of heart bypass surgery,S/P coronary artery stent placement TAKE 1 TABLET BY MOUTH EVERY DAY 90 Tab 1 0 Active chlorthalidone (HYGROTEN) 25 mg tablet TAKE 1 TABLET BY MOUTH EVERY DAY 90 Tab 1 0 Active isosorbide mononitrate (IMDUR) 60 mg 24 hr tabletIndications :Mixed dyslipidemia,Hear t failure, unspecified HF chronicity, unspecified heart failure type ([facility]),History of heart bypass surgery,S/P coronary artery stent [...] loss 04/11/2023 Overview (04/11/2023): 03/30/23 seen at [facility] for memory loss post covid Assessment/Plan [...] coronary artery stent placement 12/19/2019 Heart failure ([facility]) 12/19/2019 Mixed dyslipidemia 12/19/2019 Essential hypertension 12/19/2019 Prediabetes 12/19/2019 Insomnia 12/19/2019 Seasonal allergies 12/19/2019 Chronic obstructive pulmonary disease ([facility]) 12/19/2019 Chronic low back pain 12/19/2019 Immunizations Immunization Administration Dates Next Due Flu, High Dose, 65y+, Fluzone High Dose 07/16/20 20 Influenza (FLUZONE), high-dose, trivalent, PF Moderna COVID-19 Vaccine, re d cap blue label, 12+ Primary Series 01/22/2021,12/25/2020 PNEUMOCOCCAL POLYSACCHARIDE PPV23 (Pneumovax 23) 07/14/2020 TDAP 08/17/2020 ZOSTER VACCINE, RECOMBINANT (SHINGRIX) [...] 68 12/19/2019 2:52 PM EST Temperature 36.4 C (97.5 F) 12/19/2019 2:52 PM EST Respiratory Rate 18 12/19/2019 2:52 PM EST [...] Screening (#1) 12/18/2020 Falls Prevention 07/05/2021 07/05/2020 Imm-Pneumococcal 50+ (2 of 2 - PCV) 07/14/2021 07/14/2020, 08/16/2015 Imm-RSV (adult) (1 - 1-dose 75+ series) 2023 Diabetes Screening 03/30/2024 03/30/2023, 0 03/30/2023, 07/14/2020, Additional history exists Alcohol and Drug Screen 11/12/2024 07/05/2020 Depression Annual Screen 11/12/2024 [id number] ( season) 2025 08/22/2022, 03/17/2022, 09/05/2021, Additional history exists Imm-Influenza (#1) 2025 08/22/2022, 0 08/03/2021, 07/16/2020, Additional history exists Imm-DTaP/Tdap/Td (2 - Td or Tdap) 08/17/2030 [...] EDT) HEPATITIS C VIRUS SCREEN NEGATIVE NEGATIVE [facility] Blood specimen (specimen) Blood / Unknown 07/14/2020 9:41 AM EDT 07/14/2020 9:59 AM EDT Narrative [facility] - 07/14/2020 4:48 PM EDT [employer], a member of [address] [address] Television Technician - Adela Gregg MD PT ID [id number] ORD# [id number] us Erengeovanni Roland NP LAB - BLOOD DRAW Final Result [address] [address], * HEMOGLOBIN, GLYCOSYLATED (A1C) (07/14/2020 9:41 AM EDT) GLYCATED HEMOGLOBIN A1C 5.7 <6.5 % [facility] ESTIMATED AVERAGE GLUCOSE 117 mg/dL [facility] Blood specimen (specimen) Blood / Unknown 07/14/2020 9:41 AM EDT 07/14/2020 9:59 AM EDT Narrative [facility] - 07/14/2020 6:58 PM EDT [employer] [address] Television Technician - Adela Gregg MD PT ID [id number] ORD# [id number] Erengeovanni Roland NP LAB - BLOOD DRAW Final Result [address] [address], from Last 3 Months or Most Recently Relevant to Health Maintenance Insurance [employer] [place] [id number]
--- OUTSIDE RECORDS SUMMARY | 2025-07-30 16:50 | XMS_ITS | Clinical Summary ---
Author Organization [facility] Address [address] [address] Phone Care Team Providers Care Trimming Inspector Name Role Phone Ana Lofton MD Primary Care Provider + Social History Tobacco Use Types Packs/Day Years Used Date Smoking Tobacco: Never Assessed Education Answer Date Recorded Are you interested in more education? Not on kiki e 08/07/2024 Are you concerned about learning? Not on file 08/07/2024 No 08/07/2024 No 08/07/2024 Digital Access Answer Date Recorded No 08/07/2024 No 08/07/2024 Reliable internet access at home? Not on file 08/07/2024 Device with a working camera? Not on file Sex and Gender Information Value Date Recorded Sex Assigned at Not on file Legal Sex Male 3:48 PM EDT Gender Identity Not on file Sexual Orientation Not on file Plan of Treatment Health Maintenance Due Date Last Done Comments Adult Td,Tdap Booster 1948 LIPID PANEL 1948 DEPRESSION SCREENING 1960 SMOKING Hx and SMOKELESS TOB ACCO SCREENING 1961 HEPATITIS C SCREENING 1966 PNEUMOCOCCAL VACCINES (50+ y ears) (1 of 1 - PCV) 1998 ZOSTER VACCINES (1 of 2) 1998 RSV VACCINE (1 - 1-dose 75+ series) 2023 INFLUENZA VACCINE (#1) 2025 COVID-19 VACCINE ( - 2023-2 5 season) 2025 HEPATITIS A VACCINES Aged Out No long er eligible based on patient's age to complete this topic HIB VACCINES Aged Out No longer eligi ble based on patient's age to complete this topic MENINGOCOCCAL VACCINES (ACWY) Aged Out No longer eligible based on patient's age to complete this topic MENINGOCOCCAL VACCINES (B) Aged Out N o longer eligible based on patient's age to complete this topic Medical Devices Not on file Insurance MEDICARE REPLACEMENT MEDICARE REPLACEMENT MEDICARE REPLACEMENT MEDICARE REPLACEMENT [place] [id number] MEDICARE REPLACEMENT MEDICARE REPLACEMENT [place] [id number] Care Teams Trimming Inspector Relationship Specialty Start Date End Date Ana Lofton MD PCP - General Family Medicine 07/28/24 Additional Source Comments The information contained in this document represents components of the legal health record. It is not the complete legal health record.[facility]
--- OUTSIDE RECORDS SUMMARY | 2025-07-30 16:50 | XMS_ITS | Encounter Summary ---
Author Organization [facility] Address [address] [place] [address] Care Team Providers Care Earth Observations Chief Scientist Name Role Phone Stan Villatoro MD Primary Care Provider [phone] Encounter Details Date Type Department Care Team (Late st Contact Info) Description 10/18/2024 Lab Requisition [facility] - Main Lab [address] [place] [address] Stan Villatoro MD [address] [place], [place] [id number] Essential (primary) hypertension Social History Tobacco Use [...] mmol/L LAB CHEMISTRY METHOD 10/20/2024 11:07 AM [facility] Potassium 5.3 3.5 - 5.5 mmol/L LAB CHEMISTRY METHOD 10/20/2024 11:07 AM [facility] Comment:Short/difficult draw Chloride 106 96 - 110 mmol/L LAB CHEMISTRY METHOD 10/20/2024 11:07 AM [facility] CO2 21 21 - 32 mmol/L LAB CHEMISTRY METHOD 10/20/2024 11:07 AM [facility] Anion Gap 7 3 - 11 LAB CHEMISTRY METHOD 10/20/2024 11:07 AM [facility] Glucose 81 70 - 100 mg/dL LAB CHEMISTRY METHOD 10/20/2024 11:07 AM [facility] BUN 23 5 - 25 mg/dL LAB CHEMISTRY METHOD 10/20/2024 11:07 AM [facility] Creatinine 1.43(H) 0.70 - 1.30 mg/dL LAB CHEMISTRY METHOD 10/20/2024 11:07 AM [facility] eGFR 51(L) >=60 mL/min/1. 73m2 LAB CHEMISTRY METHOD 10/20/2024 11:07 AM [facility] Comment:Calculation based on the Chronic Kidney Disease Epidemiology Collaboration (CKD-EPI) equation refit without adjustment for race. BUN/Creatinine Ratio 16.1 LAB CHEMISTRY METHOD 10/20/2024 11:07 AM [facility] Calcium 9.1 8.5 - 10.5 mg/dL LAB CHEMISTRY METHOD 10/20/2024 11:07 AM [facility] Blood Venous blood specimen / Unknown Venipuncture / Unknown 10/20/2024 6:50 AM EST 10/20/2024 10:08 AM EST us Stan Villatoro MD LAB BLOOD ORDERABLES Edited Resu lt - Final [facility] [address] [place] [address], * Complete blood count (10/20/2024 6:50 AM EST) [facility] WBC 6.7 4.8 - 10.8 K/mcL LAB HEMETOLOGY METHOD 10/20/2024 11:15 AM [facility] RBC 4.90 4.50 - 5.50 M/mcL LAB HEMETOLOGY METHOD 10/20/2024 11:15 AM [facility] Hemoglobin 15.2 13.5 - 17.5 g/dL LAB HEMETOLOGY METHOD 10/20/2024 11:15 AM [facility] Hematocrit 46.0 42.0 - 54.0 % LAB HEMETOLOGY METHOD 10/20/2024 11:15 AM [facility] MCV 93.7 79.0 - 98.0 FL LAB HEMETOLOGY METHOD 10/20/2024 11:15 AM [facility] MCH 31.0 27.0 - 32.0 pcg LAB HEMETOLOGY METHOD 10/20/2024 11:15 AM [facility] MCHC 33.0 32.0 - 37.0 g/dL LAB HEMETOLOGY METHOD 10/20/2024 11:15 AM [facility] RDW 13.5 11.0 - 15.0 % LAB HEMETOLOGY METHOD 10/20/2024 11:15 AM [facility] Platelets 167 130 - 400 K/mcL LAB HEMETOLOGY METHOD 10/20/2024 11:15 AM [facility] MPV 9.9 7.0 - 11.0 FL LAB HEMETOLOGY METHOD 10/20/2024 11:15 AM [facility] NRBC 0.0 <1.0 % LAB HEMETOLOGY METHOD 10/20/2024 11:15 AM [facility] NRBC Absolute 0.00 <0.10 K/mcL LAB HEMETOLOGY METHOD 10/20/2024 11:15 AM EST [facility] Blood Venous blood specimen / Unknown Venipuncture / Unknown 10/20/2024 6:50 AM EST 10/20/2024 10:08 AM EST Stan Villatoro MD LAB BLOOD ORDERABLES Final Resul t [facility] [address] [place] [address], documented in this encounter Visit Diagnoses Diagnosis Essential (primary) hypertension Unspecified essential hypertension documented in this encounter Care Teams Earth Observ[employer] Chief Scientist Relationship Specialty Start Date End Date Stan Villatoro MD [address] [place] [address] [address] [place] [address] PCP - General Geriatric Medicine 10/15/24 documented as of this encounter
--- OUTSIDE RECORDS SUMMARY | 2025-07-30 16:50 | XMS_ITS | Clinical Summary ---
Author Organization [address] Address [address] [place] [address] Phone Care Team Providers Care Jukebox Routeman Name Role Phone Stan Villatoro MD Primary Care Provider [phone] Immunizations Name Administration Dates Next Due Moderna SARS-CoV-2 COVID-19, mRNA, LNP-S, preservative free 01/22/2021,12/25/2020 Surgical History Surgery Date Site/Laterality Comments CORONARY ARTERY BYPASS GRAFT 2007 PROCEDURE:CORONARY ARTERY BYPASS GRAFT NASAL SINUS SURGERY 1987 PROCEDURE:NASAL SINUS SURGERY THORACIC LAMINECTOMY 02/21/2021 Posterior PROCEDURE:THORACIC LAMINECTOMY;COMMENT:Procedure: LAMINECTOMY POSTERIOR THORACOLUMBAR 3 LEVELS; Surgeon: Ashlyn Bansal MD; Location: [facility]; Service: Spine; Laterality: Posterior; Medical History Medical History Date Comments Hypertension DX:Hypertension Myocardial infarction ([facility]/H CC V24, CMS/HCC V28) 2016 DX:Myocardial infarction (HC C) Hyperlipidemia DX:Hyperlipidemi a Asthma DX:Asthma;COMMEN T:as a child Pulmonary embolism (CMS/HCC V24, CMS/HCC V28) 2013 DX:Pulmonary embolism (HCC) Sleep apnea, obstructive DX:Slee p [...] of 2 - PCV) 07/14/2021 07/14/2020, 08/16/2015 Falls Risk Assessment 10/15/2024 Medicare Annual Wellness Visit 10/15/2024 Social Influencers of Health Screening 10/15/2024 Depression Screening 11/12/2024 Influenza Vaccine (#1) 2025 3, 08/22/2022, 08/03/2021, Additional history exists Hypertension/CHF/CAD Annual BMP Blood Test 10/21/2025 10/21/2024, 10/20/2024, 10/15/2024, Additional history exists Cholesterol Screening (Lipid Panel) 01/27/2029 01/28/2024, 07/14/2020, 07/14/2020, Additional history exists DTaP,Tdap,and Td Vaccines (2 - Td or Tdap) 08/17/2030 08/17/2020 Hepatitis C Screening Completed 07/14/2020, 020 Zoster Vaccines Completed 08/17/2020, 07/14/2020 RSV Immunization Adult Patients Completed 08/13/2023 HIB Vaccines Aged Out No [...] age to complete this topic Meningococcal B Vaccine Aged Out No l onger eligible based on patient's age to complete [...] mmol/L LAB CHEMISTRY METHOD 10/21/2024 1:41 PM [facility] Potassium 4.7 3.5 - 5.5 mmol/L LAB CHEMISTRY METHOD 10/21/2024 1:41 PM [facility] Chloride 105 96 - 110 mmol/L LAB CHEMISTRY METHOD 10/21/2024 1:41 PM [facility] CO2 27 21 - 32 mmol/L LAB CHEMISTRY METHOD 10/21/2024 1:41 PM [facility] Anion Gap 6 3 - 11 LAB CHEMISTRY METHOD 10/21/2024 1:41 PM [facility] Glucose 79 70 - 100 mg/dL LAB CHEMISTRY METHOD 10/21/2024 1:41 PM [facility] BUN 21 5 - 25 mg/dL LAB CHEMISTRY METHOD 10/21/2024 1:41 PM [facility] Creatinine 1.33(H) 0.70 - 1.30 mg/dL LAB CHEMISTRY METHOD 10/21/2024 1:41 PM [facility] eGFR 56(L) >=60 mL/min/1. 73m2 LAB CHEMISTRY METHOD 10/21/2024 1:41 PM [facility] Comment:Calculation based on the Chronic Kidney Disease Epidemiology Collaboration (CKD-EPI) equation refit without adjustment for race. BUN/Creatinine Ratio 15.8 LAB CHEMISTRY METHOD 10/21/2024 1:41 PM [facility] Calcium 9.1 8.5 - 10.5 mg/dL LAB CHEMISTRY METHOD 10/21/2024 1:41 PM [facility] Blood Venous blood specimen / Unknown Venipuncture / Unknown 10/21/2024 7:36 AM EST 10/21/2024 11:13 AM EST us Stan Villatoro MD LAB BLOOD ORDERABLES Final Resul t [email or web address] [address] [place] [address], [place] [phone] from Last 3 Months or Most Recently Relevant to Health Maintenance Insurance [employer] MEDICARE Advance Directives Documents on File Type Date Recorded Patient Tax Staff Accountant Expl anation Health Care Decision (hx) 02/21/2021 SURI ARVIZU Health Care Decision (hx) 02/21/2021 MIGDALIA MARLOW DIRECTIVE Care Teams Jukebox Routeman Relationship Specialty Start Date End Date Stan Villatoro MD [address] [place] [address] [address] [place] [address] PCP - General Geriatric Medicine 10/15/24
--- OUTSIDE RECORDS SUMMARY | 2025-07-30 16:50 | XMS_ITS | Clinical Summary ---
Author Organization [facility] Address [address] [place] [address] Care Team Providers Care Hair Cutter Name Role Phone Unavailable Primary Care Provider [...] 61 02/24/2021 2:25 PM EDT Temperature 37.3 C (99.1 F) 02/24/2021 2:25 PM EDT Respiratory Rate 16 02/24/2021 2:25 PM EDT [...] - 1-dose 75+ series) 2023 COVID-19 Vaccine (3 - season) 2025 01/22/2021, 12/25/2020 Influenza Vaccine (#1) 2025 0, 10/01/2019, 08/30/2018, Additional history exists DTap [...] Advance Directives For more information, please contact: [phone] Documents on File Type Date Recorded Patient Plate Mill Hand Expl anation Advance Directive and Living Will 02/21/2021 Latest Code Status on File Code Status Date Activated Date Inactivated Comments Full Code 02/21/2021 3:19 PM 02/24/2021 11:01 PM This code status was ascertained in the following way: discussion with patient .
--- OUTSIDE RECORDS SUMMARY | 2025-07-30 16:50 | XMS_ITS | Encounter Summary ---
Author Organization [facility] Address [address] [place] [address] Care Team Providers Care Mold Stripper Name Role Phone Stan Villatoro MD Primary Care Provider [phone] Encounter Details Date Type Department Care Team (Late st Contact Info) Description 10/24/2024 Lab Requisition [facility] Lab [address] [facility] [place] [address] Stan Villatoro MD [address] [place], [place] [id number] Essential (primary) hypertension Social History Tobacco Use [...] hypertension documented in this encounter Care Teams Mold Stripper Relationship Specialty Start Date End Date Stan Villatoro MD [address] [facility] [address] [place], [place] [phone] PCP - General Geriatric Medicine 10/15/24 documented as of this encounter
== END 2025-07-30 16:04 | disposition home or self-care (01) ==
LOC: HO.HPS 15:25
PROVIDERS: PCP General Practice; Visit Provider Internal Medicine
DX: J84.9 Interstitial pulmonary disease, unspecified (principal); G47.33 Obstructive sleep apnea (adult) (pediatric); J44.9 Chronic obstructive pulmonary disease, unspecified; R06.02 Shortness of breath; E66.9 Obesity, unspecified
CPT/HCPCS: 99213

== ENCOUNTER → 2025-07-30 15:24 | Outpatient (BNVA) | payer MEDICARE, SELFPAY | PROVIDERS: PCP General Practice; Visit Provider Internal Medicine | DX: R06.02 Shortness of breath (principal); J84.9 Interstitial pulmonary disease, unspecified; J44.9 Chronic obstructive pulmonary disease, unspecified; G47.33 Obstructive sleep apnea (adult) (pediatric); E66.9 Obesity, unspecified; Z68.37 Body mass index [BMI] 37.0-37.9, adult; Z87.891 Personal history of nicotine dependence | CPT/HCPCS: 99212 ==